=== PATIENT | female | born 1945 | race Hispanic/Latino ===

== ENCOUNTER 2018-01-23 10:07 | Outpatient (CLI) | payer MEDICARE ==
--- NOTE | 2018-01-23 12:57 | RAD ---
2 VIEWS CHEST: Date: 01/23/18 COMPARISON: 12/23/14. HISTORY: Shortness of breath. FINDINGS: Two views of the chest show normal sized cardiomediastinal silhouette. There is no evidence of consol idation, mass, or pleural effusion. The bones are unremarkable. IMPRESSION: No evidence of acute cardiopulmonary disease. POS: [facility]
== END 2018-01-23 10:08 | disposition home or self-care (01) ==
LOC: BICRAD 10:07
PROVIDERS: ATTEND Internal Medicine
DX: R06.02 Shortness of breath (principal)
CPT/HCPCS: 36415; 71046; 80053; 83880; 85025

== ENCOUNTER 2018-06-21 05:45 | Emergency (ER) | payer MEDICARE ==
[2018-06-21 06:36] LABS: Bilirubin Negative (Negative); Blood, Urine Trace (Negative); Clarity CLOUDY (Clear); Glucose, Urine (Dipstick) 250 mg/dL (Negative); Leukocyte Moderate (Negative); Nitrite Positive (Negative); Protein, Urine (Dipstick) Negative (Neg-Trace); Specific Gravity, Urine 1.011 (1.002-1.036); Urobilinogen 0.2 mg/dL (0.2-1.0)
[2018-06-21 06:39] LABS: Bacteria/HPF 4+ HPF (None Seen); Hyaline Casts/LPF 7-10 HYALINE CAST LPF (0-3 Hyaline); Pathc Cast-AUWi Flag 2.32 (0-2.49); WBC/HPF 21-50 HPF (0-3)
== END 2018-06-21 07:20 | disposition home or self-care (01) ==
LOC: ERS 05:45
DX: N12 Tubulo-interstitial nephritis, not specified as acute or chronic (principal); N30.00 Acute cystitis without hematuria; I10 Essential (primary) hypertension; E11.9 Type 2 diabetes mellitus without complications; Z86.73 Personal history of transient ischemic attack (TIA), and cerebral infarction without residual deficits; Z79.891 Long term (current) use of opiate analgesic; Z79.899 Other long term (current) drug therapy
CPT/HCPCS: 36416; 81003; 81015; 87077; 87086; 87186; 99283

== ENCOUNTER 2018-07-02 12:29 | Outpatient (CLI) | payer MEDICARE ==
--- NOTE | 2018-07-02 14:31 | ULT ---
ULTRASOUND CAROTID DOPPLER STANDARD: History: I24.1, R42 - stenosis Comparison: None. FINDINGS: Real-time grayscale and color evaluation of the extracranial carotid and vertebral arteries was perfo rmed. No elevated peak systolic velocities within the internal carotid arteries. The vertebral arteri es are patent. Antegrade flow of both vertebral arteries. IMPRESSION: No hemodynamically significant stenosis. POS: [facility]
== END 2018-07-02 12:30 | disposition home or self-care (01) ==
LOC: BICULT 12:29
PROVIDERS: ATTEND Internal Medicine
DX: R42 Dizziness and giddiness (principal); I70.90 Unspecified atherosclerosis
CPT/HCPCS: 93880

== ENCOUNTER 2018-12-16 10:45 | Outpatient (CLI) | payer MEDICARE ==
--- NOTE | 2018-12-16 13:35 | MMO ---
Bilateral MAMMO Bilat Screen [facility]. CLINICAL HISTORY: Patient is 73 years old and is seen for screening. The patient has the following family history of breast cancer: sister. The patient has a history of malignant (generic) in the right breast 1999 and malignant (generic) in the left breast 2010. 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 VIEWS: The views performed were: bilateral craniocaudal with tomosynthesis and bilateral mediolateral oblique with tomosynthesis. FILMS COMPARED: The present examination has been compared to prior imaging studies performed at [facility] on 11/15/2014, 11/17/2015, 12/13/2016 and 12/15/2017. MAMMOGRAM FINDINGS: There are scattered fibroglandular densities. There are stable benign appearing calcifications seen in both breasts. There are no suspicious masses, suspicious calcifications, or new areas of architectural distortion. IMPRESSION: THERE IS NO MAMMOGRAPHIC EVIDENCE OF MALIGNANCY. A ROUTINE FOLLOW-UP MAMMOGRAM IN 1 YEAR IS RECOMMENDED. THE RESULTS OF THIS EXAM WERE SENT TO THE PATIENT. ACR BI-RADS Category 2 - Benign finding MAMMOGRAPHY NOTE: 1. A negative mammogram report should not delay a biopsy if a dominant of clinically suspicious mass is present. 2. Approximately 10% to 15% of breast cancers are not detected by mammography. 3. Adenosis and dense breasts may obscure an underlying neoplasm. Reported by: MIRYAM KHANNA MD Electonically Signed: [id number]
--- NOTE | 2018-12-16 15:40 | BD ---
DEXA BONE DENSITOMETRY: (Dual energy x-ray absorptiometry) DATE: 12/16/2018 HISTORY: 73-year old female for age-related, post-menopausal, osteoporosis screening. weight: 215 lbs height: 64 in. Age of menopause: 44 COMPARISON: 11/26/2010 FINDINGS: The bone mineral density (BMD) is given in grams per square centimeter (g/cm2): LUMBAR SPINE: BMD (g/cm^2) T score Z score L1: 0.988 0.0 2.1 L2: 1.075 0.4 2.7 L3: 0.962 -1.1 1.3 L4: 0.948 -1.0 1.5 Total: 0.991 -0.5 1.8 Change in BMD compared to previous DEXA: -1.3 %. HIP: BMD (g/cm^2) T score Z score Femoral neck: 0.870 0.2 2.0 Total: 0.975 0.3 1.8 Change in BMD compared to previous DEXA: +0.4 %. IMPRESSION: 1.) The mean bone mineral density of the lumbar spine is normal. Fracture risk is not increased. 2) The bone mineral density of the femoral neck is normal. Fracture risk is not increased.
== END 2018-12-16 10:46 | disposition home or self-care (01) ==
LOC: BICMAMMO 10:45
PROVIDERS: ATTEND Internal Medicine
DX: Z12.31 Encounter for screening mammogram for malignant neoplasm of breast (principal); Z13.820 Encounter for screening for osteoporosis; M85.88 Other specified disorders of bone density and structure, other site; Z85.3 Personal history of malignant neoplasm of breast; Z80.3 Family history of malignant neoplasm of breast
CPT/HCPCS: 77063; 77067; 77080

== ENCOUNTER 2020-11-29 09:26 | Inpatient (IN) | payer MEDICARE ==
[~2020-11-29 09:26] MED LIST: Iopamidol-370 76% 500 ML 1 ML ONE
[2020-11-29 10:13] LABS: #Basophils 0.1 thou/uL (0.0-0.2); #Eosinphils 0.1 thou/uL (0.0-0.7); #Lymphocytes 2.2 thou/uL (1.20-3.40); #Monocytes 0.5 thou/uL (0.11-0.59); #Neutrophils 5.8 thou/uL (1.40-6.50); %Basophils 0.8 % (0.0-1.0); %Eosinophils 1.1 % (0.0-10.0); %Lymphocytes 24.9 % (21.0-51.0); %Monocytes 6.1 % (0.0-10.0); Hemoglobin 11.1 g/dL (12.0-16.0); Mean Corpuscular Hemoglobin 28.6 pg (27.0-31.0); Mean Corpuscular Volume 86.6 fL (78.0-98.0); Mean Platelet Volume 7.4 fL (7.4-10.4); Platelet Count 342 thou/uL (130-400); RBC Distribution Width 13.4 % (11.5-14.5); Red Blood Cell (RBC) Count 3.89 mill/uL (4.20-5.40); White Blood Cell (WBC) Count 8.7 thou/uL (4.8-10.8)
[2020-11-29 10:31] LABS: Bacteria/HPF 4+ HPF (None Seen); Bilirubin Negative (Negative); Blood, Urine 1+ (Negative); Clarity Clear (Clear); Glucose, Urine (Dipstick) 200 mg/dL (Negative); Ketone, Urine Negative (Negative); Leukocyte 75 Leu/uL (Negative); Nitrite 2+ (Negative); Protein, Urine (Dipstick) 50 mg/dL (Neg-Trace); RBC/HPF 0-3 HPF (0-3); Specific Gravity, Urine 1.011 (1.002-1.036); Squamous Epithelial 0-3 HPF (0-3); Urobilinogen Normal mg/dL (Less than 2); pH, Urine 5.5 (5.0-9.0)
[2020-11-29 10:31] LABS: ALT (SGPT) 20 U/L (8-55); AST (SGOT) 16 U/L (5-34); Albumin 3.8 g/dL (3.4-4.8); Alkaline Phosphatase 74 U/L (40-110); Anion Gap 15 mmol/L (10-20); BUN (Urea Nitrogen) 16 mg/dL (9.8-20.1); Bilirubin, Total 0.3 mg/dL (0.2-1.2); Calc. Creatinine Clearance 0 mL/min (70-130); Calcium 9.4 mg/dL (7.8-10.44); Carbon Dioxide 25 mmol/L (23-31); Chloride 101 mmol/L (98-107); Globulin 3.7 g/dL (2.4-3.5); Glucose 259 mg/dL (83-110); Potassium 3.6 mmol/L (3.5-5.1); Protein, Total 7.5 g/dL (5.8-8.1); Sodium 137 mmol/L (136-145)
[2020-11-29] MEDS ORDERED: cefTRIAXone\\ROCEPHIN 2 GM VIAL ONE (11:45)
[2020-11-29] MEDS ORDERED: Dextrose 5% in Water 1,000 ML IV PRN (11:54)
[2020-11-29] MEDS ORDERED: Dextrose 50% Abboject 50 ML SYRINGE SLOW IVP PRN (11:54)
[2020-11-29] MEDS ORDERED: Acetaminophen 325 MG TAB PO PRN (12:41)
[2020-11-29] MEDS ORDERED: Ondansetron ODT 4 MG TAB PO PRN (12:41)
[2020-11-29] MEDS ORDERED: HYDROcodone/Acetaminophen 5/325 mg Tablet PO PRN (12:41)
[2020-11-29] MEDS ORDERED: hydrALAZINE 20 MG/ML VIAL SLOW IVP PRN (13:16)
[2020-11-29 14:20] LABS: Troponin I Less than 0.010 ng/mL (< 0.028)
[2020-11-29 16:45] LABS: Troponin I Less than 0.010 ng/mL (< 0.028)
[2020-11-29] MEDS ORDERED: Carvedilol 3.125 MG TAB PO SCH (19:00)
[2020-11-29 19:31] LABS: SARS-CoV-2 NAA Rapid Test Not Detected (NotDetected)
[2020-11-29] MEDS: Carvedilol 3.125 MG TAB PO SCH (20:45)
[2020-11-29] MEDS: Sodium Chloride 0.9% 1,000 ML IV SCH ×2 (20:59)
[2020-11-29] MEDS ORDERED: Atorvastatin Calcium 10 MG TAB PO SCH (21:00)
[2020-11-29] MEDS: Alogliptin 25 MG TAB PO SCH (22:01)
[2020-11-29] MEDS ORDERED: cloNIDine 0.1 MG TAB ONE (22:05)
[2020-11-29] MEDS ORDERED: Amlodipine 5 MG TAB ONE (22:05)
[2020-11-29] MEDS ORDERED: Famotidine 20 MG TAB ONE (22:05)
[2020-11-29] MEDS: Amlodipine 5 MG TAB PO SCH (22:08)
[2020-11-29] MEDS: cloNIDine 0.1 MG TAB PO SCH (22:09)
[2020-11-29] MEDS: Famotidine 20 MG TAB PO SCH (22:10)
[2020-11-29] MEDS: Lantus 1000 UNITS/10 ML VIAL SC SCH (22:16)
[2020-11-30] MEDS ORDERED: Acetaminophen 325 MG TAB ONE (00:58)
[2020-11-30 03:22] VITALS: BMI 34.7
[2020-11-30 05:35] LABS: #Eosinphils 0.1 thou/uL (0.0-0.7); #Lymphocytes 2.8 thou/uL (1.20-3.40); #Monocytes 0.7 thou/uL (0.11-0.59); #Neutrophils 5.2 thou/uL (1.40-6.50); %Basophils 0.3 % (0.0-1.0); %Eosinophils 1.3 % (0.0-10.0); %Lymphocytes 31.9 % (21.0-51.0); %Neutrophils 58.6 % (42.0-75.0); Hemoglobin 10.4 g/dL (12.0-16.0); Mean Corpuscular Hemoglobin 29.9 pg (27.0-31.0); Mean Corpuscular Volume 87.9 fL (78.0-98.0); Mean Platelet Volume 7.2 fL (7.4-10.4); Platelet Count 323 thou/uL (130-400); RBC Distribution Width 13.6 % (11.5-14.5); Red Blood Cell (RBC) Count 3.47 mill/uL (4.20-5.40); White Blood Cell (WBC) Count 8.9 thou/uL (4.8-10.8)
[2020-11-30 05:58] LABS: Anion Gap 10 mmol/L (10-20); BUN (Urea Nitrogen) 14 mg/dL (9.8-20.1); Calc. Creatinine Clearance 89 mL/min (70-130); Calcium 8.5 mg/dL (7.8-10.44); Carbon Dioxide 26 mmol/L (23-31); Cardiac Risk 5.3 (Less than 4.5); Chloride 103 mmol/L (98-107); Cholesterol 163 mg/dl (< 200 Desired); Glucose 156 mg/dL (83-110); HDL Cholesterol 31 mg/dL (>60 Neg Risk); LDL Cholesterol, Calculated 95 mg/dL; Potassium 3.1 mmol/L (3.5-5.1); Sodium 136 mmol/L (136-145); Triglycerides 186 mg/dL (Less than 150)
[2020-11-30] MEDS: Sodium Chloride 0.9% 1,000 ML IV SCH (06:48)
[2020-11-30] MEDS: Alogliptin 25 MG TAB PO SCH ×2 (08:38→21:29)
[2020-11-30] MEDS: Carvedilol 3.125 MG TAB PO SCH ×2 (08:38→16:54)
[2020-11-30] MEDS: Furosemide 20 MG TAB PO SCH (08:39)
[2020-11-30] MEDS: Enoxaparin Sodium 40 MG/0.4 ML SYRINGE SC SCH (08:39)
[2020-11-30] MEDS: Famotidine 20 MG TAB PO SCH ×2 (08:39→21:31)
[2020-11-30] MEDS: Amlodipine 5 MG TAB PO SCH ×2 (08:39→21:30)
[2020-11-30] MEDS: Aspirin 81 mg Enteric Coated Tablet PO SCH (08:39)
[2020-11-30] MEDS: Lantus 1000 UNITS/10 ML VIAL SC SCH ×2 (08:51→21:38)
[2020-11-30] MEDS ORDERED: Potassium Chloride 20 MEQ TAB PO SCH (09:45)
[2020-11-30] MEDS: cefTRIAXone\\ROCEPHIN 2 GM in Sodium Chloride 0.9% 100 ML IVPB SCH (11:18)
[2020-11-30] MEDS: HumaLOG 300 UNITS/3 ML VIAL SC PRN ×2 (12:18→16:54)
[2020-11-30] MEDS: Atorvastatin Calcium 10 MG TAB PO SCH (21:30)
[2020-11-30] MEDS: cloNIDine 0.1 MG TAB PO SCH (21:31)
[2020-11-30] MEDS: Simvastatin 10 MG TAB PO SCH (21:31)
[2020-12-01] MEDS ORDERED: HumaLOG 300 UNITS/3 ML VIAL SC PRN (04:30)
[2020-12-01 05:20] LABS: #Basophils 0.1 thou/uL (0.0-0.2); #Eosinphils 0.2 thou/uL (0.0-0.7); #Lymphocytes 2.5 thou/uL (1.20-3.40); #Monocytes 0.6 thou/uL (0.11-0.59); #Neutrophils 5.2 thou/uL (1.40-6.50); %Basophils 0.7 % (0.0-1.0); %Eosinophils 1.8 % (0.0-10.0); %Lymphocytes 29.6 % (21.0-51.0); %Monocytes 7.1 % (0.0-10.0); %Neutrophils 60.9 % (42.0-75.0); Hemoglobin 10.6 g/dL (12.0-16.0); Mean Corpuscular HGB CONC 33.5 g/dL (32.0-36.0); Mean Corpuscular Hemoglobin 29.4 pg (27.0-31.0); Mean Corpuscular Volume 87.8 fL (78.0-98.0); Mean Platelet Volume 7.3 fL (7.4-10.4); Platelet Count 322 thou/uL (130-400); RBC Distribution Width 13.7 % (11.5-14.5); White Blood Cell (WBC) Count 8.5 thou/uL (4.8-10.8)
[2020-12-01 05:38] LABS: Anion Gap 11 mmol/L (10-20); BUN (Urea Nitrogen) 14 mg/dL (9.8-20.1); Calc. Creatinine Clearance 101 mL/min (70-130); Calcium 8.6 mg/dL (7.8-10.44); Carbon Dioxide 25 mmol/L (23-31); Chloride 104 mmol/L (98-107); Glucose 117 mg/dL (83-110); Potassium 3.2 mmol/L (3.5-5.1); Sodium 137 mmol/L (136-145)
[2020-12-01] MEDS: Lantus 1000 UNITS/10 ML VIAL SC SCH ×2 (08:48→21:29)
[2020-12-01] MEDS: Carvedilol 3.125 MG TAB PO SCH ×2 (08:49→16:54)
[2020-12-01] MEDS: Enoxaparin Sodium 40 MG/0.4 ML SYRINGE SC SCH (08:49)
[2020-12-01] MEDS: Famotidine 20 MG TAB PO SCH ×2 (08:49→21:29)
[2020-12-01] MEDS: Amlodipine 5 MG TAB PO SCH ×2 (08:50→21:27)
[2020-12-01] MEDS: Furosemide 20 MG TAB PO SCH (08:50)
[2020-12-01] MEDS: Alogliptin 25 MG TAB PO SCH ×2 (08:51→21:26)
[2020-12-01] MEDS: Aspirin 81 mg Enteric Coated Tablet PO SCH (08:51)
[2020-12-01] MEDS ORDERED: Furosemide 20 MG TAB PO SCH (09:00)
[2020-12-01] MEDS ORDERED: Potassium Chloride 20 MEQ TAB PO SCH (10:00)
[2020-12-01] MEDS: cefTRIAXone\\ROCEPHIN 2 GM in Sodium Chloride 0.9% 100 ML IVPB SCH (11:52)
[2020-12-01] MEDS: HumaLOG 300 UNITS/3 ML VIAL SC PRN ×2 (12:12→16:55)
[2020-12-01] MEDS: cloNIDine 0.1 MG TAB PO SCH (21:28)
[2020-12-01] MEDS: Atorvastatin Calcium 10 MG TAB PO SCH (21:28)
[2020-12-01] MEDS: Simvastatin 10 MG TAB PO SCH (21:29)
[2020-12-02 05:29] LABS: Anion Gap 8 mmol/L (10-20); BUN (Urea Nitrogen) 12 mg/dL (9.8-20.1); Calc. Creatinine Clearance 97 mL/min (70-130); Calcium 8.5 mg/dL (7.8-10.44); Carbon Dioxide 29 mmol/L (23-31); Chloride 104 mmol/L (98-107); Glucose 68 mg/dL (83-110); Potassium 3.5 mmol/L (3.5-5.1); Sodium 137 mmol/L (136-145)
[2020-12-02] MEDS: Furosemide 20 MG TAB PO SCH (07:40)
[2020-12-02] MEDS: Carvedilol 3.125 MG TAB PO SCH (07:40)
[2020-12-02] MEDS: Famotidine 20 MG TAB PO SCH (07:40)
[2020-12-02] MEDS: Aspirin 81 mg Enteric Coated Tablet PO SCH (07:40)
[2020-12-02] MEDS: Enoxaparin Sodium 40 MG/0.4 ML SYRINGE SC SCH (07:41)
[2020-12-02] MEDS: Amlodipine 5 MG TAB PO SCH (07:41)
[2020-12-02] MEDS: Lantus 1000 UNITS/10 ML VIAL SC SCH (07:43)
[2020-12-02] MEDS ORDERED: Alogliptin 6.25 MG TAB PO SCH (09:00)
[2020-12-02] MEDS: cefTRIAXone\\ROCEPHIN 2 GM in Sodium Chloride 0.9% 100 ML IVPB SCH (11:29)
[2020-12-02] MEDS: HumaLOG 300 UNITS/3 ML VIAL SC PRN (11:31)
[2020-12-02] MEDS ORDERED: Cefdinir 300 MG CAP PO SCH ×2 (14:45→21:00)
[2020-12-02 15:38] VITALS: TEMP 98
[2020-12-02 17:01] VITALS: BP 170/73
== END 2020-12-02 17:30 | disposition home or self-care (01) | DRG 690 ==
LOC: ERS 09:26 → SUATTDRO 09:26 → ERHOLD 11:57 → 2SW 11-30 02:33 → OBSVTOIN 11-30 15:25
PROVIDERS: ADMIT Family Medicine; ATTEND Internal Medicine
DX: N30.80 Other cystitis without hematuria (principal); Z16.11 Resistance to penicillins; Z16.29 Resistance to other single specified antibiotic; I69.354 Hemiplegia and hemiparesis following cerebral infarction affecting left non-dominant side; Z20.822 Contact with and (suspected) exposure to COVID-19; E86.0 Dehydration; B96.20 Unspecified Escherichia coli [E. coli] as the cause of diseases classified elsewhere; E11.40 Type 2 diabetes mellitus with diabetic neuropathy, unspecified; E78.5 Hyperlipidemia, unspecified; E11.65 Type 2 diabetes mellitus with hyperglycemia; I65.21 Occlusion and stenosis of right carotid artery; E87.6 Hypokalemia; Z85.3 Personal history of malignant neoplasm of breast; Z92.21 Personal history of antineoplastic chemotherapy; Z92.3 Personal history of irradiation; Z85.038 Personal history of other malignant neoplasm of large intestine; Z79.899 Other long term (current) drug therapy; Z79.84 Long term (current) use of oral hypoglycemic drugs; Z79.82 Long term (current) use of aspirin; Z79.811 Long term (current) use of aromatase inhibitors; Z90.710 Acquired absence of both cervix and uterus; Z81.1 Family history of alcohol abuse and dependence; Z80.3 Family history of malignant neoplasm of breast
CPT/HCPCS: 0240U; 36415; 36416; 74177; 80048; 80053; 80061; 81003; 81015; 82607; 82746; 83036; 84484; 85025; 87040; 87077; 87086; 87186; 93005; 93306; 93880; 94760; 96365; 96366; 96372; G0378; J0360; J0696; J1650; J1815; J3490; Q9967

== ENCOUNTER 2020-12-22 08:45 | Outpatient (CLI) | payer MEDICARE | END 2020-12-22 08:46 | disposition home or self-care (01) | LOC: BICMAMMO 08:45 | PROVIDERS: ATTEND Internal Medicine | DX: Z12.31 Encounter for screening mammogram for malignant neoplasm of breast (principal); Z80.3 Family history of malignant neoplasm of breast; Z85.3 Personal history of malignant neoplasm of breast; Z98.890 Other specified postprocedural states | CPT/HCPCS: 77063; 77067 ==

== ENCOUNTER 2021-09-15 19:26 | Inpatient (IN) | payer MEDICARE ==
[2021-09-15 20:58] LABS: #Eosinphils 0.1 thou/uL (0.0-0.7); #Lymphocytes 2.4 thou/uL (1.20-3.40); #Monocytes 0.6 thou/uL (0.11-0.59); #Neutrophils 5.4 thou/uL (1.40-6.50); %Basophils 0.4 % (0.0-1.0); %Eosinophils 1.3 % (0.0-10.0); %Lymphocytes 28.3 % (21.0-51.0); %Monocytes 7.5 % (0.0-10.0); %Neutrophils 62.6 % (42.0-75.0); Hemoglobin 10.7 g/dL (12.0-16.0); Mean Corpuscular HGB CONC 32.6 g/dL (32.0-36.0); Mean Corpuscular Hemoglobin 28.5 pg (27.0-31.0); Mean Corpuscular Volume 87.2 fL (78.0-98.0); Mean Platelet Volume 6.6 fL (7.4-10.4); Platelet Count 424 thou/uL (130-400); Red Blood Cell (RBC) Count 3.77 mill/uL (4.20-5.40); White Blood Cell (WBC) Count 8.5 thou/uL (4.8-10.8)
[2021-09-15 21:17] LABS: ALT (SGPT) 15 U/L (8-55); AST (SGOT) 10 U/L (5-34); Albumin 3.7 g/dL (3.4-4.8); Alkaline Phosphatase 84 U/L (40-110); Anion Gap 14 mmol/L (10-20); BUN (Urea Nitrogen) 14 mg/dL (9.8-20.1); Bilirubin, Total 0.4 mg/dL (0.2-1.2); Calc. Creatinine Clearance 0 mL/min (70-130); Calcium 9.5 mg/dL (7.8-10.44); Carbon Dioxide 22 mmol/L (23-31); Chloride 105 mmol/L (98-107); Globulin 3.7 g/dL (2.4-3.5); Glucose 171 mg/dL (83-110); Lipase 8 U/L (8-78); Potassium 3.2 mmol/L (3.5-5.1); Protein, Total 7.4 g/dL (5.8-8.1); Sodium 138 mmol/L (136-145)
[2021-09-15] MEDS ORDERED: Aspirin Chewable 81 MG TAB ONE (22:10)
[2021-09-15] MEDS ORDERED: Acetaminophen 325 MG TAB PO PRN (22:45)
[2021-09-15] MEDS ORDERED: Ondansetron ODT 4 MG TAB SL PRN (22:45)
[2021-09-15] MEDS ORDERED: Ondansetron PF 4 MG/2 ML Vial IVP PRN (22:45)
[2021-09-16 00:35] LABS: Troponin I 0.016 ng/mL (< 0.028)
[2021-09-16] MEDS ORDERED: Acetaminophen 650 MG Suppository PR PRN (00:38)
[2021-09-16] MEDS ORDERED: Dextrose 50% Abboject 50 ML SYRINGE SLOW IVP PRN (00:38)
[2021-09-16] MEDS ORDERED: Dextrose 5% in Water 1,000 ML IV PRN (00:38)
[2021-09-16 00:42] VITALS: BMI 36.3
[2021-09-16] MEDS ORDERED: Electrolyte Replacement Protocol 1 EACH FS SCH (04:30)
[2021-09-16 05:07] LABS: #Eosinphils 0.1 thou/uL (0.0-0.7); #Lymphocytes 2.4 thou/uL (1.20-3.40); #Monocytes 0.6 thou/uL (0.11-0.59); #Neutrophils 5.1 thou/uL (1.40-6.50); %Basophils 0.4 % (0.0-1.0); %Eosinophils 1.7 % (0.0-10.0); %Lymphocytes 28.5 % (21.0-51.0); %Monocytes 7.8 % (0.0-10.0); %Neutrophils 61.6 % (42.0-75.0); Hemoglobin 9.7 g/dL (12.0-16.0); Mean Corpuscular HGB CONC 32.7 g/dL (32.0-36.0); Mean Corpuscular Hemoglobin 28.4 pg (27.0-31.0); Mean Corpuscular Volume 87.1 fL (78.0-98.0); Mean Platelet Volume 7.1 fL (7.4-10.4); Platelet Count 383 thou/uL (130-400); RBC Distribution Width 14.1 % (11.5-14.5); White Blood Cell (WBC) Count 8.3 thou/uL (4.8-10.8)
[2021-09-16 05:11] LABS: Anion Gap 14 mmol/L (10-20); BUN (Urea Nitrogen) 14 mg/dL (9.8-20.1); Calc. Creatinine Clearance 83 mL/min (70-130); Calcium 8.9 mg/dL (7.8-10.44); Carbon Dioxide 23 mmol/L (23-31); Chloride 108 mmol/L (98-107); Glucose 134 mg/dL (83-110); Sodium 142 mmol/L (136-145)
[2021-09-16 05:12] LABS: Magnesium 1.3 mg/dL (1.6-2.6)
[2021-09-16 05:18] LABS: Troponin I 0.013 ng/mL (< 0.028)
[2021-09-16 05:19] LABS: Potassium 2.8 mmol/L (3.5-5.1)
[2021-09-16] MEDS ORDERED: Potassium Chloride 20 MEQ TAB PO SCH ×3 (06:00→20:00)
[2021-09-16] MEDS ORDERED: Magnesium Sulfate In Water 4 GM in Premix Bag 1 BAG IVPB SCH (06:00)
[2021-09-16] MEDS: Aspirin Chewable 81 MG TAB PO SCH (07:53)
[2021-09-16] MEDS ORDERED: Carvedilol 6.25 MG TAB PO SCH (12:30)
[2021-09-16] MEDS ORDERED: Amlodipine 5 MG TAB PO SCH (12:30)
[2021-09-16] MEDS ORDERED: ADENOSINE 60 MG/20 ML VIAL ONE (14:29)
[2021-09-16] MEDS: HumaLOG 300 UNITS/3 ML VIAL SC PRN ×2 (15:38→20:11)
[2021-09-16 18:04] LABS: SARS-CoV-2 PCR by NAA Not Detected (NotDetected)
[2021-09-16] MEDS: Carvedilol 6.25 MG TAB PO SCH (19:56)
[2021-09-16] MEDS: Amlodipine 5 MG TAB PO SCH (19:57)
[2021-09-16] MEDS: cloNIDine 0.1 MG TAB PO SCH (19:57)
[2021-09-16] MEDS: Atorvastatin Calcium 40 MG TAB PO SCH (19:57)
[2021-09-16] MEDS ORDERED: Acetaminophen 325 MG TAB PO PRN (22:54)
[2021-09-16] MEDS ORDERED: Acetaminophen 325 MG TAB PO SCH (23:59)
[2021-09-17 05:30] LABS: Anion Gap 14 mmol/L (10-20); BUN (Urea Nitrogen) 18 mg/dL (9.8-20.1); Calc. Creatinine Clearance 70 mL/min (70-130); Carbon Dioxide 20 mmol/L (23-31); Chloride 103 mmol/L (98-107); Glucose 288 mg/dL (83-110); Potassium 4.4 mmol/L (3.5-5.1); Sodium 133 mmol/L (136-145)
[2021-09-17] MEDS: HumaLOG 300 UNITS/3 ML VIAL SC PRN ×4 (06:14→20:15)
[2021-09-17] MEDS: Amlodipine 5 MG TAB PO SCH (09:22)
[2021-09-17] MEDS ORDERED: Furosemide 40 MG/4 ML VIAL SLOW IVP SCH (09:30)
[2021-09-17] MEDS ORDERED: Flecainide 50 MG TAB PO SCH (09:30)
[2021-09-17] MEDS ORDERED: Enoxaparin Sodium 100 MG/ML SYRINGE SC SCH (10:00)
[2021-09-17] MEDS: Carvedilol 6.25 MG TAB PO SCH ×2 (10:05→20:05)
[2021-09-17] MEDS: Aspirin Chewable 81 MG TAB PO SCH (10:05)
[2021-09-17] MEDS ORDERED: Azithromycin 250 MG TAB PO SCH ×2 (12:00→14:00)
[2021-09-17] MEDS: Atorvastatin Calcium 40 MG TAB PO SCH (20:04)
[2021-09-17] MEDS: Enoxaparin Sodium 100 MG/ML SYRINGE SC SCH (20:05)
[2021-09-17] MEDS: Flecainide 50 MG TAB PO SCH (20:05)
[2021-09-17] MEDS: cloNIDine 0.1 MG TAB PO SCH (20:05)
[2021-09-18] MEDS: HumaLOG 300 UNITS/3 ML VIAL SC PRN ×2 (07:14→18:35)
[2021-09-18] MEDS: Enoxaparin Sodium 100 MG/ML SYRINGE SC SCH ×2 (08:29→20:36)
[2021-09-18] MEDS: Aspirin Chewable 81 MG TAB PO SCH (08:29)
[2021-09-18] MEDS: Flecainide 50 MG TAB PO SCH ×2 (08:29→20:39)
[2021-09-18] MEDS: Carvedilol 6.25 MG TAB PO SCH ×2 (08:29→20:39)
[2021-09-18] MEDS ORDERED: PROPOFOL 200 MG/20 ML VIAL ONE (12:57)
[2021-09-18] MEDS ORDERED: hydrALAZINE 20 MG/ML VIAL SLOW IVP PRN ×2 (18:53→20:05)
[2021-09-18] MEDS ORDERED: Dextrose 5% in Water 1,000 ML IV PRN (20:01)
[2021-09-18] MEDS ORDERED: Dextrose 50% Abboject 50 ML SYRINGE SLOW IVP PRN (20:01)
[2021-09-18] MEDS ORDERED: HumaLOG 300 UNITS/3 ML VIAL SC PRN (20:02)
[2021-09-18] MEDS ORDERED: Acetaminophen 650 MG Suppository PR PRN (20:02)
[2021-09-18] MEDS ORDERED: Acetaminophen 325 MG TAB PO PRN (20:04)
[2021-09-18] MEDS ORDERED: Electrolyte Replacement Protocol 1 EACH FS SCH (20:15)
[2021-09-18] MEDS: cloNIDine 0.1 MG TAB PO SCH (20:39)
[2021-09-18] MEDS: Atorvastatin Calcium 40 MG TAB PO SCH (20:39)
[2021-09-19] MEDS: HumaLOG 300 UNITS/3 ML VIAL SC PRN ×3 (06:25→17:25)
[2021-09-19] MEDS ORDERED: Furosemide 40 MG/4 ML VIAL SLOW IVP SCH (08:45)
[2021-09-19] MEDS ORDERED: Amlodipine 10 MG TAB PO SCH (09:00)
[2021-09-19 09:21] LABS: #Eosinphils 0.1 thou/uL (0.0-0.7); #Lymphocytes 1.9 thou/uL (1.20-3.40); #Monocytes 0.7 thou/uL (0.11-0.59); #Neutrophils 6.8 thou/uL (1.40-6.50); %Basophils 0.4 % (0.0-1.0); %Eosinophils 0.8 % (0.0-10.0); %Lymphocytes 20.4 % (21.0-51.0); %Neutrophils 71.5 % (42.0-75.0); Hemoglobin 9.8 g/dL (12.0-16.0); Mean Corpuscular HGB CONC 31.5 g/dL (32.0-36.0); Mean Corpuscular Hemoglobin 27.7 pg (27.0-31.0); Mean Corpuscular Volume 87.9 fL (78.0-98.0); Mean Platelet Volume 7.3 fL (7.4-10.4); Platelet Count 328 thou/uL (130-400); RBC Distribution Width 14.1 % (11.5-14.5); Red Blood Cell (RBC) Count 3.53 mill/uL (4.20-5.40); White Blood Cell (WBC) Count 9.5 thou/uL (4.8-10.8)
[2021-09-19 09:41] LABS: Anion Gap 12 mmol/L (10-20); BUN (Urea Nitrogen) 19 mg/dL (9.8-20.1); Calc. Creatinine Clearance 81 mL/min (70-130); Calcium 9.3 mg/dL (7.8-10.44); Carbon Dioxide 24 mmol/L (23-31); Chloride 104 mmol/L (98-107); Glucose 252 mg/dL (83-110); Potassium 3.8 mmol/L (3.5-5.1); Sodium 136 mmol/L (136-145)
[2021-09-19] MEDS: Amlodipine 10 MG TAB PO SCH (09:49)
[2021-09-19] MEDS: Aspirin Chewable 81 MG TAB PO SCH (09:49)
[2021-09-19] MEDS: Carvedilol 6.25 MG TAB PO SCH ×2 (09:50→20:41)
[2021-09-19] MEDS: Enoxaparin Sodium 100 MG/ML SYRINGE SC SCH ×2 (09:50→20:42)
[2021-09-19] MEDS: Flecainide 50 MG TAB PO SCH ×2 (09:52→20:41)
[2021-09-19] MEDS: Furosemide 40 MG/4 ML VIAL SLOW IVP SCH (15:00)
[2021-09-19] MEDS: glyBURIDE 5 MG TAB PO SCH (17:26)
[2021-09-19] MEDS: metFORMIN 500 MG TAB PO SCH (20:40)
[2021-09-19] MEDS: Atorvastatin Calcium 40 MG TAB PO SCH (20:41)
[2021-09-19] MEDS: cloNIDine 0.1 MG TAB PO SCH (20:41)
[2021-09-19] MEDS: Insulin Glargine 30 UNITS/0.3 ML VIAL SC SCH (20:42)
[2021-09-19] MEDS: Alogliptin 6.25 MG TAB PO SCH (20:42)
[2021-09-20 05:47] LABS: #Eosinphils 0.1 thou/uL (0.0-0.7); #Monocytes 0.5 thou/uL (0.11-0.59); #Neutrophils 5.8 thou/uL (1.40-6.50); %Basophils 0.3 % (0.0-1.0); %Eosinophils 1.1 % (0.0-10.0); %Lymphocytes 23.8 % (21.0-51.0); %Monocytes 6.3 % (0.0-10.0); %Neutrophils 68.5 % (42.0-75.0); Hemoglobin 8.6 g/dL (12.0-16.0); Mean Corpuscular HGB CONC 31.6 g/dL (32.0-36.0); Mean Corpuscular Hemoglobin 27.9 pg (27.0-31.0); Mean Corpuscular Volume 88.2 fL (78.0-98.0); Platelet Count 328 thou/uL (130-400); RBC Distribution Width 14.2 % (11.5-14.5); Red Blood Cell (RBC) Count 3.09 mill/uL (4.20-5.40); White Blood Cell (WBC) Count 8.5 thou/uL (4.8-10.8)
[2021-09-20 06:13] LABS: Anion Gap 14 mmol/L (10-20); BUN (Urea Nitrogen) 19 mg/dL (9.8-20.1); Calc. Creatinine Clearance 71 mL/min (70-130); Calcium 8.8 mg/dL (7.8-10.44); Carbon Dioxide 25 mmol/L (23-31); Chloride 101 mmol/L (98-107); Glucose 273 mg/dL (83-110); Potassium 3.2 mmol/L (3.5-5.1); Sodium 137 mmol/L (136-145)
[2021-09-20] MEDS: HumaLOG 300 UNITS/3 ML VIAL SC PRN (06:21)
[2021-09-20] MEDS: Furosemide 40 MG/4 ML VIAL SLOW IVP SCH ×2 (06:21→14:47)
[2021-09-20] MEDS ORDERED: Potassium Chloride 20 MEQ TAB PO SCH ×2 (08:00→15:00)
[2021-09-20] MEDS ORDERED: HumaLOG 300 UNITS/3 ML VIAL SC PRN (08:17)
[2021-09-20] MEDS ORDERED: Dextrose 5% in Water 1,000 ML IV PRN (08:17)
[2021-09-20] MEDS: glyBURIDE 5 MG TAB PO SCH ×2 (09:55→16:35)
[2021-09-20] MEDS: Alogliptin 6.25 MG TAB PO SCH ×2 (09:56→21:47)
[2021-09-20] MEDS: Amlodipine 10 MG TAB PO SCH (09:57)
[2021-09-20] MEDS: Carvedilol 6.25 MG TAB PO SCH ×2 (09:57→21:46)
[2021-09-20] MEDS: Aspirin Chewable 81 MG TAB PO SCH (09:57)
[2021-09-20] MEDS: Flecainide 50 MG TAB PO SCH ×2 (09:58→21:45)
[2021-09-20] MEDS: Enoxaparin Sodium 100 MG/ML SYRINGE SC SCH ×2 (09:58→21:46)
[2021-09-20] MEDS: Insulin Glargine 30 UNITS/0.3 ML VIAL SC SCH ×2 (09:59→21:46)
[2021-09-20] MEDS: metFORMIN 500 MG TAB PO SCH ×2 (09:59→21:45)
[2021-09-20 14:21] LABS: Hemoglobin 9.6 g/dL (12.0-16.0)
[2021-09-20 14:38] LABS: Potassium 3.5 mmol/L (3.5-5.1)
[2021-09-20 21:31] LABS: Potassium 3.6 mmol/L (3.5-5.1)
[2021-09-20] MEDS: Atorvastatin Calcium 40 MG TAB PO SCH (21:46)
[2021-09-20] MEDS: cloNIDine 0.1 MG TAB PO SCH (21:46)
[2021-09-21] MEDS: Furosemide 40 MG/4 ML VIAL SLOW IVP SCH ×2 (05:36→13:08)
[2021-09-21] MEDS ORDERED: Furosemide 40 MG/4 ML VIAL ONE (05:48)
[2021-09-21 06:06] LABS: Potassium 3.8 mmol/L (3.5-5.1)
[2021-09-21] MEDS: Aspirin Chewable 81 MG TAB PO SCH (08:32)
[2021-09-21] MEDS: glyBURIDE 5 MG TAB PO SCH (08:32)
[2021-09-21] MEDS: Alogliptin 6.25 MG TAB PO SCH (08:32)
[2021-09-21] MEDS: Insulin Glargine 30 UNITS/0.3 ML VIAL SC SCH (08:33)
[2021-09-21] MEDS: Carvedilol 6.25 MG TAB PO SCH (08:33)
[2021-09-21] MEDS: metFORMIN 500 MG TAB PO SCH (08:33)
[2021-09-21] MEDS: Flecainide 50 MG TAB PO SCH (08:33)
[2021-09-21] MEDS: Amlodipine 10 MG TAB PO SCH (08:33)
[2021-09-21] MEDS: Enoxaparin Sodium 100 MG/ML SYRINGE SC SCH (08:34)
[2021-09-21 11:27] VITALS: BP 133/68; TEMP 98.1
[2021-09-21] MEDS ORDERED: Loperamide HCl 2 MG CAP PO PRN (11:31)
== END 2021-09-21 15:21 | disposition home or self-care (01) | DRG 291 ==
LOC: ERS 19:26 → 2SW 22:30 → OBSVTOIN 09-16 15:23 → UNDODISIN 09-18 14:06
PROVIDERS: ADMIT Internal Medicine; ATTEND Internal Medicine
PROC: 5A2204Z Restoration of Cardiac Rhythm, Single (ICD-10-PCS; principal; 2021-09-18)
PROC: B24BZZ4 Ultrasonography of Heart with Aorta, Transesophageal (ICD-10-PCS; 2021-09-18)
DX: I11.0 Hypertensive heart disease with heart failure (principal); I50.33 Acute on chronic diastolic (congestive) heart failure; I45.2 Bifascicular block; A04.5 Campylobacter enteritis; Z20.822 Contact with and (suspected) exposure to COVID-19; C50.919 Malignant neoplasm of unspecified site of unspecified female breast; I48.91 Unspecified atrial fibrillation; E11.51 Type 2 diabetes mellitus with diabetic peripheral angiopathy without gangrene; E87.6 Hypokalemia; E83.42 Hypomagnesemia; I27.20 Pulmonary hypertension, unspecified; R07.9 Chest pain, unspecified; D64.9 Anemia, unspecified; E66.9 Obesity, unspecified; Z79.899 Other long term (current) drug therapy; Z86.73 Personal history of transient ischemic attack (TIA), and cerebral infarction without residual deficits; Z92.21 Personal history of antineoplastic chemotherapy; Z92.3 Personal history of irradiation; Z98.890 Other specified postprocedural states; Z85.038 Personal history of other malignant neoplasm of large intestine; Z90.710 Acquired absence of both cervix and uterus; Z79.82 Long term (current) use of aspirin; Z79.84 Long term (current) use of oral hypoglycemic drugs; Z68.36 Body mass index [BMI] 36.0-36.9, adult
CPT/HCPCS: 36415; 36416; 71045; 72040; 78452; 80048; 80053; 82274; 83690; 83735; 83880; 84132; 84484; 85025; 92960; 93005; 93010; 93017; 93306; 93312; 94640; 94760; A9500; J0153; J1650; J1815; J1940; J2704; J3475; J7620; U0003; U0005

== ENCOUNTER 2021-09-29 22:23 | Emergency (ER) | payer MEDICARE ==
[2021-09-29 22:57] LABS: #Basophils 0.1 thou/uL (0.0-0.2); #Eosinphils 0.2 thou/uL (0.0-0.7); #Lymphocytes 2.6 thou/uL (1.20-3.40); #Monocytes 0.7 thou/uL (0.11-0.59); #Neutrophils 6.1 thou/uL (1.40-6.50); %Basophils 0.5 % (0.0-1.0); %Eosinophils 1.6 % (0.0-10.0); %Lymphocytes 26.9 % (21.0-51.0); %Monocytes 7.3 % (0.0-10.0); %Neutrophils 63.7 % (42.0-75.0); Mean Corpuscular HGB CONC 34.3 g/dL (32.0-36.0); Mean Corpuscular Hemoglobin 28.7 pg (27.0-31.0); Mean Corpuscular Volume 83.9 fL (78.0-98.0); Mean Platelet Volume 6.7 fL (7.4-10.4); Platelet Count 409 thou/uL (130-400); RBC Distribution Width 14.1 % (11.5-14.5); Red Blood Cell (RBC) Count 3.48 mill/uL (4.20-5.40); White Blood Cell (WBC) Count 9.6 thou/uL (4.8-10.8)
[2021-09-29 23:19] LABS: ALT (SGPT) 9 U/L (8-55); AST (SGOT) 11 U/L (5-34); Albumin 3.9 g/dL (3.4-4.8); Alkaline Phosphatase 73 U/L (40-110); Anion Gap 14 mmol/L (10-20); BUN (Urea Nitrogen) 17 mg/dL (9.8-20.1); Bilirubin, Total 0.3 mg/dL (0.2-1.2); Calc. Creatinine Clearance 0 mL/min (70-130); Calcium 9.3 mg/dL (7.8-10.44); Carbon Dioxide 26 mmol/L (23-31); Chloride 99 mmol/L (98-107); Globulin 3.3 g/dL (2.4-3.5); Glucose 180 mg/dL (83-110); Potassium 3.9 mmol/L (3.5-5.1); Protein, Total 7.2 g/dL (5.8-8.1); Sodium 135 mmol/L (136-145)
== END 2021-09-30 03:33 | disposition home or self-care (01) ==
LOC: ERS 22:23
DX: R07.9 Chest pain, unspecified (principal); I45.2 Bifascicular block; I10 Essential (primary) hypertension; E11.9 Type 2 diabetes mellitus without complications; I25.2 Old myocardial infarction; Z85.3 Personal history of malignant neoplasm of breast; Z85.038 Personal history of other malignant neoplasm of large intestine; Z79.82 Long term (current) use of aspirin; Z79.4 Long term (current) use of insulin; Z79.899 Other long term (current) drug therapy
CPT/HCPCS: 36415; 71045; 80053; 84484; 85025; 93005

== ENCOUNTER 2021-11-26 11:43 | Outpatient (CLI) | payer MEDICARE | END 2021-11-26 11:44 | disposition home or self-care (01) | LOC: BICRAD 11:43 | PROVIDERS: ATTEND Internal Medicine | DX: M25.572 Pain in left ankle and joints of left foot (principal); M79.672 Pain in left foot; M19.072 Primary osteoarthritis, left ankle and foot; M79.89 Other specified soft tissue disorders; M25.775 Osteophyte, left foot; W19.XXXD Unspecified fall, subsequent encounter; Z87.81 Personal history of (healed) traumatic fracture ==

== ENCOUNTER 2022-01-03 10:29 | Inpatient (IN) | payer MEDICARE ==
[2022-01-03 11:39] LABS: #Eosinphils 0.1 thou/uL (0.0-0.7); #Monocytes 0.6 thou/uL (0.11-0.59); %Basophils 0.3 % (0.0-1.0); %Eosinophils 0.8 % (0.0-10.0); %Lymphocytes 18.5 % (21.0-51.0); %Monocytes 5.7 % (0.0-10.0); %Neutrophils 74.8 % (42.0-75.0); Hemoglobin 8.7 g/dL (12.0-16.0); Mean Corpuscular HGB CONC 31.5 g/dL (32.0-36.0); Mean Corpuscular Volume 82.7 fL (78.0-98.0); Mean Platelet Volume 7.9 fL (7.4-10.4); Platelet Count 354 thou/uL (130-400); RBC Distribution Width 16.3 % (11.5-14.5); Red Blood Cell (RBC) Count 3.33 mill/uL (4.20-5.40); White Blood Cell (WBC) Count 10.7 thou/uL (4.8-10.8)
[2022-01-03 12:05] LABS: ALT (SGPT) 11 U/L (8-55); AST (SGOT) 10 U/L (5-34); Albumin 3.5 g/dL (3.4-4.8); Alkaline Phosphatase 72 U/L (40-110); Anion Gap 18 mmol/L (10-20); BUN (Urea Nitrogen) 25 mg/dL (9.8-20.1); Bilirubin, Total 0.4 mg/dL (0.2-1.2); Calc. Creatinine Clearance 0 mL/min (70-130); Calcium 9.4 mg/dL (7.8-10.44); Carbon Dioxide 18 mmol/L (23-31); Chloride 103 mmol/L (98-107); Estimated GFR 35; Globulin 3.6 g/dL (2.4-3.5); Glucose 212 mg/dL (83-110); Potassium 5.4 mmol/L (3.5-5.1); Protein, Total 7.1 g/dL (5.8-8.1); Sodium 134 mmol/L (136-145)
[2022-01-03] MEDS ORDERED: cefTRIAXone\\ROCEPHIN 2 GM VIAL ONE (13:24)
[2022-01-03] MEDS ORDERED: cefTRIAXone\\ROCEPHIN 1 GM VIAL ONE (13:25)
[2022-01-03 13:29] LABS: SARS-CoV-2 NAA Rapid Test Not Detected (NotDetected)
[2022-01-03] MEDS ORDERED: Dextrose 5% in Water 1,000 ML IV PRN (14:59)
[2022-01-03] MEDS ORDERED: Dextrose 50% Abboject 50 ML SYRINGE SLOW IVP PRN (14:59)
[2022-01-03] MEDS ORDERED: Acetaminophen 325 MG TAB PO PRN (14:59)
[2022-01-03] MEDS ORDERED: Azithromycin 500 MG VIAL ONE (15:07)
[2022-01-03] MEDS ORDERED: Insulin Regular 300 UNITS/3 ML VIAL IVP SCH (15:27)
[2022-01-03] MEDS ORDERED: Albuterol Sulfate 2.5 mg/3 ml Neb NEB SCH (15:27)
[2022-01-03] MEDS ORDERED: Dextrose 50% Abboject 50 ML SYRINGE SLOW IVP SCH (15:27)
[2022-01-03] MEDS ORDERED: Furosemide 20 MG/2 ML VIAL SLOW IVP SCH (15:30)
[2022-01-03] MEDS ORDERED: Iopamidol-370 76% 500 ML 1 ML ONE (15:58)
[2022-01-03 16:33] LABS: Troponin I Less than 0.010 ng/mL (< 0.028)
[2022-01-03 17:09] LABS: Magnesium 1.8 mg/dL (1.6-2.6)
[2022-01-03 17:20] VITALS: BMI 34.4
[2022-01-03] MEDS ORDERED: Ondansetron PF 4 MG/2 ML Vial IVP PRN (17:30)
[2022-01-03] MEDS ORDERED: Ondansetron ODT 4 MG TAB SL PRN (17:30)
[2022-01-03 17:59] LABS: Anion Gap 16 mmol/L (10-20); BUN (Urea Nitrogen) 25 mg/dL (9.8-20.1); Calc. Creatinine Clearance 51 mL/min (70-130); Calcium 9.1 mg/dL (7.8-10.44); Carbon Dioxide 20 mmol/L (23-31); Chloride 105 mmol/L (98-107); Estimated GFR 42; Glucose 143 mg/dL (83-110); Potassium 4.8 mmol/L (3.5-5.1); Sodium 136 mmol/L (136-145)
[2022-01-03 18:03] LABS: Troponin I Less than 0.010 ng/mL (< 0.028)
[2022-01-03] MEDS: Amlodipine 5 MG TAB PO SCH (21:18)
[2022-01-03] MEDS: cloNIDine 0.1 MG TAB PO SCH (21:19)
[2022-01-03] MEDS: Simvastatin 10 MG TAB PO SCH (21:19)
[2022-01-04] MEDS ORDERED: Melatonin 3 MG TAB PO SCH (01:45)
[2022-01-04 04:48] LABS: #Eosinphils 0.2 thou/uL (0.0-0.7); #Lymphocytes 1.9 thou/uL (1.20-3.40); #Monocytes 0.6 thou/uL (0.11-0.59); #Neutrophils 7.2 thou/uL (1.40-6.50); %Basophils 0.3 % (0.0-1.0); %Eosinophils 1.6 % (0.0-10.0); %Lymphocytes 19.4 % (21.0-51.0); %Monocytes 6.2 % (0.0-10.0); %Neutrophils 72.6 % (42.0-75.0); Hemoglobin 8.5 g/dL (12.0-16.0); Mean Corpuscular HGB CONC 33.3 g/dL (32.0-36.0); Mean Corpuscular Hemoglobin 27.4 pg (27.0-31.0); Mean Corpuscular Volume 82.4 fL (78.0-98.0); Mean Platelet Volume 7.5 fL (7.4-10.4); Platelet Count 320 thou/uL (130-400); RBC Distribution Width 16.2 % (11.5-14.5); Red Blood Cell (RBC) Count 3.09 mill/uL (4.20-5.40); White Blood Cell (WBC) Count 9.9 thou/uL (4.8-10.8)
[2022-01-04 05:11] LABS: Anion Gap 12 mmol/L (10-20); BUN (Urea Nitrogen) 21 mg/dL (9.8-20.1); Calc. Creatinine Clearance 68 mL/min (70-130); Calcium 8.8 mg/dL (7.8-10.44); Carbon Dioxide 21 mmol/L (23-31); Chloride 104 mmol/L (98-107); Estimated GFR 58; Glucose 85 mg/dL (83-110); Potassium 4.2 mmol/L (3.5-5.1); Sodium 133 mmol/L (136-145)
[2022-01-04] MEDS: Amlodipine 5 MG TAB PO SCH ×2 (10:00→21:29)
[2022-01-04] MEDS: Furosemide 20 MG TAB PO SCH (10:00)
[2022-01-04 11:21] LABS: Iron 21 ug/dL (50-170); Iron Binding Capacity, Total 326 mcg/dL (265-497)
[2022-01-04 12:16] LABS: Actual Bicarbonate (HCO3v) 24 mEq/L (22-28); Base Excess -0.8 mEq/L (-2.0 to +3.0); Calcium, Ionized (venous) 1.15 mmol/L (1.16-1.32); Chloride (VBG) 104 mmol/L (98-106); Hemoglobin (Hb) 9.7 g/dL (11.7-16.1); Potassium (VBG) 4.37 mmol/L (3.70-5.30); Sodium 135.5 mmol/L (133-146)
[2022-01-04] MEDS: cefTRIAXone\\ROCEPHIN 1 GM in Sodium Chloride 0.9% 100 ML IVPB SCH (14:19)
[2022-01-04] MEDS ORDERED: Azithromycin 500 MG in Sodium Chloride 0.9% 250 ML 250 ML IVPB SCH (15:00)
[2022-01-04] MEDS: HumaLOG 300 UNITS/3 ML VIAL SC PRN ×2 (17:18→21:42)
[2022-01-04] MEDS ORDERED: Nitroglycerin 0.4 MG TAB (25 Tab Bottle) ONE (17:28)
[2022-01-04] MEDS ORDERED: Temazepam 15 MG CAP PO PRN (19:48)
[2022-01-04] MEDS: Simvastatin 10 MG TAB PO SCH (21:33)
[2022-01-04] MEDS: Apixaban 5 MG TAB PO SCH (21:33)
[2022-01-04] MEDS: Famotidine 20 MG TAB PO SCH (21:33)
[2022-01-04] MEDS: cloNIDine 0.1 MG TAB PO SCH (21:33)
[2022-01-05] MEDS: Azithromycin 500 MG in Sodium Chloride 0.9% 250 ML 250 ML IVPB SCH ×2 (02:36→21:44)
[2022-01-05 04:51] LABS: #Eosinphils 0.2 thou/uL (0.0-0.7); #Lymphocytes 1.8 thou/uL (1.20-3.40); #Monocytes 0.6 thou/uL (0.11-0.59); #Neutrophils 5.1 thou/uL (1.40-6.50); %Basophils 0.6 % (0.0-1.0); %Eosinophils 2.1 % (0.0-10.0); %Lymphocytes 23.8 % (21.0-51.0); %Monocytes 7.7 % (0.0-10.0); %Neutrophils 65.8 % (42.0-75.0); Hemoglobin 8.5 g/dL (12.0-16.0); Mean Corpuscular HGB CONC 31.7 g/dL (32.0-36.0); Mean Platelet Volume 7.6 fL (7.4-10.4); Platelet Count 327 thou/uL (130-400); RBC Distribution Width 16.3 % (11.5-14.5); Red Blood Cell (RBC) Count 3.27 mill/uL (4.20-5.40); White Blood Cell (WBC) Count 7.7 thou/uL (4.8-10.8)
[2022-01-05 05:10] LABS: ALT (SGPT) 12 U/L (8-55); AST (SGOT) 11 U/L (5-34); Albumin 3.3 g/dL (3.4-4.8); Alkaline Phosphatase 75 U/L (40-110); Anion Gap 12 mmol/L (10-20); BUN (Urea Nitrogen) 14 mg/dL (9.8-20.1); Bilirubin, Total 0.5 mg/dL (0.2-1.2); Calc. Creatinine Clearance 75 mL/min (70-130); Carbon Dioxide 23 mmol/L (23-31); Chloride 105 mmol/L (98-107); Estimated GFR 67; Globulin 3.4 g/dL (2.4-3.5); Glucose 204 mg/dL (83-110); Magnesium 1.7 mg/dL (1.6-2.6); Potassium 4.2 mmol/L (3.5-5.1); Protein, Total 6.7 g/dL (5.8-8.1); Sodium 136 mmol/L (136-145)
[2022-01-05 05:11] LABS: Phosphorus 2.8 mg/dL (2.3-4.7)
[2022-01-05] MEDS: HumaLOG 300 UNITS/3 ML VIAL SC PRN ×4 (06:30→21:45)
[2022-01-05] MEDS ORDERED: metFORMIN 500 MG TAB PO SCH (09:15)
[2022-01-05] MEDS: Amlodipine 5 MG TAB PO SCH ×2 (09:27→21:43)
[2022-01-05] MEDS: Flecainide 50 MG TAB PO SCH ×2 (09:28→21:45)
[2022-01-05] MEDS: Apixaban 5 MG TAB PO SCH ×2 (09:28→21:44)
[2022-01-05] MEDS: Famotidine 20 MG TAB PO SCH ×2 (09:28→21:45)
[2022-01-05] MEDS: Aspirin 81 mg Enteric Coated Tablet PO SCH (09:28)
[2022-01-05] MEDS: Furosemide 20 MG TAB PO SCH (09:29)
[2022-01-05] MEDS: Folic Acid 1 MG TAB PO SCH (09:29)
[2022-01-05] MEDS ORDERED: Alogliptin 6.25 MG TAB PO SCH (09:45)
[2022-01-05] MEDS ORDERED: Furosemide 20 MG TAB PO SCH ×2 (11:19→11:30)
[2022-01-05] MEDS: cefTRIAXone\\ROCEPHIN 1 GM in Sodium Chloride 0.9% 100 ML IVPB SCH (11:59)
[2022-01-05] MEDS: metFORMIN 500 MG TAB PO SCH (17:06)
[2022-01-05] MEDS: cloNIDine 0.1 MG TAB PO SCH (21:44)
[2022-01-05] MEDS: Simvastatin 10 MG TAB PO SCH (21:45)
[2022-01-05] MEDS ORDERED: Guaifenesin DM 100-10/5 ML UDCUP PO PRN (23:22)
[2022-01-06 04:59] LABS: #Eosinphils 0.3 thou/uL (0.0-0.7); #Monocytes 0.6 thou/uL (0.11-0.59); #Neutrophils 5.3 thou/uL (1.40-6.50); %Basophils 0.3 % (0.0-1.0); %Eosinophils 3.1 % (0.0-10.0); %Lymphocytes 24.6 % (21.0-51.0); %Monocytes 7.4 % (0.0-10.0); %Neutrophils 64.6 % (42.0-75.0); Hemoglobin 8.7 g/dL (12.0-16.0); Mean Corpuscular Hemoglobin 26.5 pg (27.0-31.0); Mean Corpuscular Volume 82.8 fL (78.0-98.0); Mean Platelet Volume 7.6 fL (7.4-10.4); Platelet Count 349 thou/uL (130-400); RBC Distribution Width 16.3 % (11.5-14.5); Red Blood Cell (RBC) Count 3.29 mill/uL (4.20-5.40); White Blood Cell (WBC) Count 8.3 thou/uL (4.8-10.8)
[2022-01-06 05:18] LABS: Phosphorus 2.8 mg/dL (2.3-4.7)
[2022-01-06 05:22] LABS: Anion Gap 12 mmol/L (10-20); BUN (Urea Nitrogen) 16 mg/dL (9.8-20.1); Calc. Creatinine Clearance 77 mL/min (70-130); Calcium 8.6 mg/dL (7.8-10.44); Carbon Dioxide 21 mmol/L (23-31); Chloride 106 mmol/L (98-107); Estimated GFR 72; Glucose 259 mg/dL (83-110); Magnesium 1.6 mg/dL (1.6-2.6); Potassium 4.1 mmol/L (3.5-5.1); Sodium 135 mmol/L (136-145)
[2022-01-06] MEDS: HumaLOG 300 UNITS/3 ML VIAL SC PRN ×4 (06:17→20:53)
[2022-01-06] MEDS: Apixaban 5 MG TAB PO SCH ×2 (08:38→20:47)
[2022-01-06] MEDS: Alogliptin 6.25 MG TAB PO SCH (08:38)
[2022-01-06] MEDS: metFORMIN 500 MG TAB PO SCH ×2 (08:39→16:01)
[2022-01-06] MEDS: Ferrous Sulfate 325 MG TAB PO SCH (08:39)
[2022-01-06] MEDS: Famotidine 20 MG TAB PO SCH ×2 (08:39→20:49)
[2022-01-06] MEDS: Amlodipine 5 MG TAB PO SCH ×2 (08:39→20:48)
[2022-01-06] MEDS: Flecainide 50 MG TAB PO SCH ×2 (08:40→20:48)
[2022-01-06] MEDS: Folic Acid 1 MG TAB PO SCH (08:40)
[2022-01-06] MEDS: Furosemide 40 MG TAB PO SCH (08:40)
[2022-01-06] MEDS: Aspirin 81 mg Enteric Coated Tablet PO SCH (08:40)
[2022-01-06] MEDS ORDERED: Losartan 25 MG TAB PO SCH ×2 (12:36→13:00)
[2022-01-06] MEDS ORDERED: Furosemide 20 MG TAB PO SCH (12:45)
[2022-01-06] MEDS: cefTRIAXone\\ROCEPHIN 1 GM in Sodium Chloride 0.9% 100 ML IVPB SCH (13:00)
[2022-01-06] MEDS: Simvastatin 10 MG TAB PO SCH (20:47)
[2022-01-06] MEDS: cloNIDine 0.1 MG TAB PO SCH (20:48)
[2022-01-06] MEDS: Azithromycin 500 MG in Sodium Chloride 0.9% 250 ML 250 ML IVPB SCH (20:48)
[2022-01-07] MEDS: HumaLOG 300 UNITS/3 ML VIAL SC PRN ×2 (06:01→11:41)
[2022-01-07 08:03] VITALS: TEMP 98
[2022-01-07] MEDS ORDERED: Losartan 25 MG TAB PO SCH (09:00)
[2022-01-07] MEDS: Alogliptin 6.25 MG TAB PO SCH (09:30)
[2022-01-07] MEDS: Flecainide 50 MG TAB PO SCH (09:30)
[2022-01-07] MEDS: Famotidine 20 MG TAB PO SCH (09:31)
[2022-01-07] MEDS: Amlodipine 5 MG TAB PO SCH (09:31)
[2022-01-07] MEDS: Folic Acid 1 MG TAB PO SCH (09:31)
[2022-01-07] MEDS: Aspirin 81 mg Enteric Coated Tablet PO SCH (09:31)
[2022-01-07] MEDS: Ferrous Sulfate 325 MG TAB PO SCH (09:31)
[2022-01-07] MEDS: Apixaban 5 MG TAB PO SCH (09:32)
[2022-01-07] MEDS: metFORMIN 500 MG TAB PO SCH (09:32)
[2022-01-07] MEDS: Furosemide 40 MG TAB PO SCH (09:49)
[2022-01-07 12:08] VITALS: BP 150/65
[2022-01-07] MEDS: cefTRIAXone\\ROCEPHIN 1 GM in Sodium Chloride 0.9% 100 ML IVPB SCH (12:32)
== END 2022-01-07 13:47 | disposition home or self-care (01) | DRG 177 ==
LOC: ERS 10:29 → ERHOLD 13:53 → 2SW 16:55 → OBSVTOIN 01-04 09:47
PROVIDERS: ADMIT Family Medicine; ATTEND Family Medicine
DX: J69.0 Pneumonitis due to inhalation of food and vomit (principal); I50.33 Acute on chronic diastolic (congestive) heart failure; J96.01 Acute respiratory failure with hypoxia; N17.9 Acute kidney failure, unspecified; Z20.822 Contact with and (suspected) exposure to COVID-19; E11.9 Type 2 diabetes mellitus without complications; I48.91 Unspecified atrial fibrillation; I11.0 Hypertensive heart disease with heart failure; E78.5 Hyperlipidemia, unspecified; E87.5 Hyperkalemia; D50.9 Iron deficiency anemia, unspecified; Z90.710 Acquired absence of both cervix and uterus; Z86.73 Personal history of transient ischemic attack (TIA), and cerebral infarction without residual deficits; Z85.038 Personal history of other malignant neoplasm of large intestine; Z85.3 Personal history of malignant neoplasm of breast; I25.2 Old myocardial infarction; Z79.84 Long term (current) use of oral hypoglycemic drugs; Z79.4 Long term (current) use of insulin; Z79.82 Long term (current) use of aspirin; Z79.899 Other long term (current) drug therapy
CPT/HCPCS: 36415; 36416; 71045; 71275; 80048; 80053; 82728; 82805; 83540; 83550; 83735; 83880; 84100; 84145; 84443; 84484; 85025; 87040; 87070; 87205; 93005; 94760; 96365; 96366; 96367; 96375; 96376; G0378; J0456; J0696; J1815; J1940; J3490; J7050; Q9967

== ENCOUNTER 2022-03-09 16:35 | Emergency (ER) | payer MEDICARE ==
[2022-03-09] MEDS ORDERED: Meclizine HCl 25 MG TAB ONE (17:17)
[2022-03-09 17:25] LABS: #Eosinphils 0.1 thou/uL (0.0-0.7); #Lymphocytes 2.3 thou/uL (1.20-3.40); #Monocytes 0.6 thou/uL (0.11-0.59); #Neutrophils 6.7 thou/uL (1.40-6.50); %Basophils 0.2 % (0.0-1.0); %Eosinophils 0.6 % (0.0-10.0); %Lymphocytes 23.7 % (21.0-51.0); %Monocytes 6.3 % (0.0-10.0); %Neutrophils 69.3 % (42.0-75.0); Hemoglobin 9.9 g/dL (12.0-16.0); Mean Corpuscular HGB CONC 32.9 g/dL (32.0-36.0); Mean Corpuscular Hemoglobin 26.4 pg (27.0-31.0); Mean Corpuscular Volume 80.2 fl (78.0-98.0); Mean Platelet Volume 8.5 fL (7.4-10.4); Platelet Count 289 10x3/uL (130-400); Red Blood Cell (RBC) Count 3.77 mill/uL (4.20-5.40); White Blood Cell (WBC) Count 9.7 10x3/uL (4.8-10.8)
[2022-03-09 17:34] LABS: Bacteria/HPF 3+ HPF (None Seen); Bilirubin Negative (Negative); Blood, Urine 1+ (Negative); Glucose, Urine (Dipstick) Greater than 1000 mg/dL (Negative); Ketone, Urine Negative (Negative); Leukocyte Negative Leu/uL (Negative); Nitrite 1+ (Negative); Protein, Urine (Dipstick) 100 mg/dL (Neg-Trace); Specific Gravity, Urine 1.014 (1.002-1.036); Squamous Epithelial None Seen HPF (0-3); Urobilinogen Normal mg/dL (Less than 2); pH, Urine 6.5 (5.0-9.0)
[2022-03-09 17:35] LABS: Clarity Hazy (Clear)
[2022-03-09 17:52] LABS: ALT (SGPT) 9 U/L (8-55); AST (SGOT) 12 U/L (5-34); Albumin 3.7 g/dL (3.4-4.8); Alkaline Phosphatase 73 U/L (40-110); Anion Gap 13 mmol/L (10-20); BUN (Urea Nitrogen) 16 mg/dL (9.8-20.1); Bilirubin, Total 0.6 mg/dL (0.2-1.2); Calc. Creatinine Clearance 0 mL/min (70-130); Calcium 9.1 mg/dL (7.8-10.44); Carbon Dioxide 26 mmol/L (23-31); Chloride 92 mmol/L (98-107); Estimated GFR 55; Globulin 3.8 g/dL (2.4-3.5); Protein, Total 7.5 g/dL (5.8-8.1); Sodium 128 mmol/L (136-145)
[2022-03-09 17:56] LABS: Glucose 480 mg/dL (83-110)
[2022-03-09] MEDS ORDERED: Potassium Chloride 20 MEQ TAB ONE (18:26)
[2022-03-09] MEDS ORDERED: cefTRIAXone\\ROCEPHIN 1 GM VIAL ONE (18:26)
== END 2022-03-09 19:26 | disposition home or self-care (01) ==
LOC: ERS 16:35
DX: N39.0 Urinary tract infection, site not specified (principal); R42 Dizziness and giddiness; E87.6 Hypokalemia; E11.65 Type 2 diabetes mellitus with hyperglycemia; E11.9 Type 2 diabetes mellitus without complications; I10 Essential (primary) hypertension
CPT/HCPCS: 36416; 70450; 71045; 80053; 81003; 81015; 84484; 85025; 93005; 96374; J0696

== ENCOUNTER 2022-03-20 16:04 | Emergency (ER) | payer MEDICARE ==
[2022-03-20 16:28] LABS: #Eosinphils 0.1 thou/uL (0.0-0.7); #Lymphocytes 2.2 thou/uL (1.20-3.40); #Monocytes 0.6 thou/uL (0.11-0.59); #Neutrophils 6.1 thou/uL (1.40-6.50); %Basophils 0.4 % (0.0-1.0); %Eosinophils 0.8 % (0.0-10.0); %Lymphocytes 24.5 % (21.0-51.0); %Monocytes 6.2 % (0.0-10.0); %Neutrophils 68.1 % (42.0-75.0); Hemoglobin 9.7 g/dL (12.0-16.0); Mean Corpuscular HGB CONC 30.8 g/dL (32.0-36.0); Mean Corpuscular Hemoglobin 25.4 pg (27.0-31.0); Mean Corpuscular Volume 82.4 fl (78.0-98.0); Mean Platelet Volume 7.9 fL (7.4-10.4); Platelet Count 359 10x3/uL (130-400); RBC Distribution Width 15.5 % (11.5-14.5)
[2022-03-20 16:49] LABS: ALT (SGPT) 12 U/L (8-55); AST (SGOT) 13 U/L (5-34); Albumin 3.7 g/dL (3.4-4.8); Alkaline Phosphatase 68 U/L (40-110); Anion Gap 13 mmol/L (10-20); BUN (Urea Nitrogen) 18 mg/dL (9.8-20.1); Bilirubin, Total 0.4 mg/dL (0.2-1.2); Calc. Creatinine Clearance 0 mL/min (70-130); Calcium 9.3 mg/dL (7.8-10.44); Carbon Dioxide 23 mmol/L (23-31); Chloride 99 mmol/L (98-107); Estimated GFR 48; Glucose 397 mg/dL (83-110); Potassium 4.4 mmol/L (3.5-5.1); Protein, Total 7.7 g/dL (5.8-8.1); Sodium 131 mmol/L (136-145)
[2022-03-20] MEDS ORDERED: Insulin Regular 300 UNITS/3 ML VIAL ONE (18:07)
[2022-03-20] MEDS ORDERED: Amlodipine 5 MG TAB ONE (18:38)
[2022-03-20] MEDS ORDERED: Lisinopril 10 MG TAB ONE (18:38)
[2022-03-20] MEDS ORDERED: hydrALAZINE 20 MG/ML VIAL ONE (19:26)
== END 2022-03-20 20:18 | disposition home or self-care (01) ==
LOC: ERS 16:04
DX: E11.65 Type 2 diabetes mellitus with hyperglycemia (principal); I10 Essential (primary) hypertension
CPT/HCPCS: 36415; 36416; 80053; 85025; 96374; 96375; J0360; J1610; J1815

== ENCOUNTER 2022-04-23 07:50 | Inpatient (IN) | payer MEDICARE ==
[2022-04-23 08:31] LABS: #Eosinphils 0.1 thou/uL (0.0-0.7); #Monocytes 0.5 thou/uL (0.11-0.59); #Neutrophils 6.8 thou/uL (1.40-6.50); %Basophils 0.1 % (0.0-1.0); %Eosinophils 0.8 % (0.0-10.0); %Lymphocytes 21.2 % (21.0-51.0); %Monocytes 5.3 % (0.0-10.0); %Neutrophils 72.6 % (42.0-75.0); Mean Corpuscular HGB CONC 31.4 g/dL (32.0-36.0); Mean Corpuscular Hemoglobin 25.7 pg (27.0-31.0); Mean Corpuscular Volume 81.8 fl (78.0-98.0); Mean Platelet Volume 7.5 fL (7.4-10.4); Platelet Count 327 10x3/uL (130-400); RBC Distribution Width 16.2 % (11.5-14.5); White Blood Cell (WBC) Count 9.3 10x3/uL (4.8-10.8)
[2022-04-23 08:50] LABS: Actual Bicarbonate (HCO3v) 24 mEq/L (22-28); Base Excess 0.5 mEq/L (-2.0 to +3.0); Chloride (VBG) 106 mmol/L (98-106); Hemoglobin (Hb) 9.7 g/dL (11.7-16.1); Sodium 139.5 mmol/L (133-146); pH (venous) 7.49 (7.32-7.43)
[2022-04-23 08:51] LABS: ALT (SGPT) Less than 7 U/L (8-55); AST (SGOT) 8 U/L (5-34); Albumin 3.4 g/dL (3.4-4.8); Alkaline Phosphatase 66 U/L (40-110); Anion Gap 15 mmol/L (10-20); BUN (Urea Nitrogen) 11 mg/dL (9.8-20.1); Bilirubin, Total 0.8 mg/dL (0.2-1.2); Calc. Creatinine Clearance 0 mL/min (70-130); Calcium 9.1 mg/dL (7.8-10.44); Carbon Dioxide 23 mmol/L (23-31); Chloride 104 mmol/L (98-107); Estimated GFR 76; Globulin 3.9 g/dL (2.4-3.5); Glucose 113 mg/dL (83-110); Magnesium 1.4 mg/dL (1.6-2.6); Potassium 3.1 mmol/L (3.5-5.1); Protein, Total 7.3 g/dL (5.8-8.1); Sodium 139 mmol/L (136-145)
[2022-04-23] MEDS ORDERED: Potassium Chloride 20 MEQ TAB ONE (09:31)
[2022-04-23] MEDS ORDERED: Magnesium 2 GM/50 ML(in water) 2 GM in Premix Bag 1 BAG IVPB SCH ×2 (09:45→15:00)
[2022-04-23 10:49] LABS: SARS-CoV-2 NAA Rapid Test Not Detected (NotDetected)
[2022-04-23] MEDS ORDERED: Nitroglycerin 2% Ointment 1 INCH/1 GM Packet ONE (11:07)
[2022-04-23] MEDS ORDERED: Furosemide 40 MG/4 ML VIAL ONE ×2 (11:07→16:32)
[2022-04-23] MEDS ORDERED: Electrolyte Replacement Protocol 1 EACH FS SCH (14:45)
[2022-04-23] MEDS ORDERED: Electrolyte Replacement Protocol FS PRN (14:45)
[2022-04-23 15:03] LABS: Hemoglobin A1c 9.6 % (4.0-6.0)
[2022-04-23 15:21] LABS: Potassium 3.7 mmol/L (3.5-5.1)
[2022-04-23] MEDS ORDERED: Dextrose 50% Abboject 50 ML SYRINGE SLOW IVP PRN (15:50)
[2022-04-23] MEDS ORDERED: Dextrose 5% in Water 1,000 ML IV PRN (15:50)
[2022-04-23] MEDS ORDERED: Metoclopramide HCl 10 MG/2 ML VIAL IVP PRN (16:29)
[2022-04-23] MEDS ORDERED: Furosemide 40 MG/4 ML VIAL SLOW IVP SCH (16:30)
[2022-04-23 20:51] VITALS: BMI 32.8
[2022-04-23] MEDS ORDERED: cloNIDine 0.1 MG TAB PO SCH (21:00)
[2022-04-23] MEDS ORDERED: Losartan 25 MG TAB PO SCH (21:00)
[2022-04-23] MEDS: Carvedilol 6.25 MG TAB PO SCH (22:53)
[2022-04-23] MEDS: Apixaban 5 MG TAB PO SCH (22:53)
[2022-04-23] MEDS: cloNIDine 0.1 MG TAB PO SCH (22:54)
[2022-04-23] MEDS: Simvastatin 10 MG TAB PO SCH (22:54)
[2022-04-23] MEDS: HumaLOG 300 UNITS/3 ML VIAL SC PRN (22:55)
[2022-04-23] MEDS: Losartan 25 MG TAB PO SCH (22:55)
[2022-04-23] MEDS: Flecainide 50 MG TAB PO SCH (22:55)
[2022-04-24 04:47] LABS: #Eosinphils 0.1 thou/uL (0.0-0.7); #Lymphocytes 1.6 thou/uL (1.20-3.40); #Monocytes 0.6 thou/uL (0.11-0.59); #Neutrophils 5.9 thou/uL (1.40-6.50); %Basophils 0.1 % (0.0-1.0); %Eosinophils 0.9 % (0.0-10.0); %Lymphocytes 19.9 % (21.0-51.0); Hemoglobin 8.8 g/dL (12.0-16.0); Mean Corpuscular HGB CONC 32.7 g/dL (32.0-36.0); Mean Corpuscular Hemoglobin 26.8 pg (27.0-31.0); Mean Corpuscular Volume 81.9 fl (78.0-98.0); Mean Platelet Volume 7.5 fL (7.4-10.4); Platelet Count 319 10x3/uL (130-400); RBC Distribution Width 16.3 % (11.5-14.5); Red Blood Cell (RBC) Count 3.27 mill/uL (4.20-5.40); White Blood Cell (WBC) Count 8.2 10x3/uL (4.8-10.8)
[2022-04-24 05:13] LABS: ALT (SGPT) Less than 7 U/L (8-55); AST (SGOT) 8 U/L (5-34); Albumin 3.1 g/dL (3.4-4.8); Alkaline Phosphatase 64 U/L (40-110); Anion Gap 11 mmol/L (10-20); BUN (Urea Nitrogen) 11 mg/dL (9.8-20.1); Bilirubin, Total 0.9 mg/dL (0.2-1.2); Calc. Creatinine Clearance 78 mL/min (70-130); Calcium 8.5 mg/dL (7.8-10.44); Carbon Dioxide 25 mmol/L (23-31); Chloride 102 mmol/L (98-107); Estimated GFR 73; Globulin 3.5 g/dL (2.4-3.5); Glucose 245 mg/dL (83-110); Iron 33 ug/dL (50-170); Iron Binding Capacity, Total 279 mcg/dL (265-497); Potassium 3.4 mmol/L (3.5-5.1); Protein, Total 6.6 g/dL (5.8-8.1); Sodium 135 mmol/L (136-145)
[2022-04-24 05:32] LABS: Ferritin 58.66 ng/mL (10-291); Thyroid Stimulating Hormone 1.9106 uIU/mL (0.35-4.94)
[2022-04-24] MEDS ORDERED: Furosemide 20 MG/2 ML VIAL SLOW IVP SCH (06:00)
[2022-04-24] MEDS: Furosemide 20 MG/2 ML VIAL SLOW IVP SCH ×2 (06:33→15:18)
[2022-04-24] MEDS ORDERED: Potassium Chloride 20 MEQ TAB PO SCH (08:00)
[2022-04-24] MEDS ORDERED: Magnesium 2 GM/50 ML(in water) 2 GM in Premix Bag 1 BAG IVPB SCH (08:00)
[2022-04-24] MEDS: Aspirin 81 mg Enteric Coated Tablet PO SCH (08:45)
[2022-04-24] MEDS: Amlodipine 5 MG TAB PO SCH (08:45)
[2022-04-24] MEDS: Flecainide 50 MG TAB PO SCH ×2 (08:46→21:07)
[2022-04-24] MEDS: Folic Acid 1 MG TAB PO SCH (08:46)
[2022-04-24] MEDS: Apixaban 5 MG TAB PO SCH ×2 (08:46→21:06)
[2022-04-24] MEDS: Carvedilol 6.25 MG TAB PO SCH ×2 (08:46→17:11)
[2022-04-24] MEDS: Losartan 25 MG TAB PO SCH ×2 (08:46→21:07)
[2022-04-24] MEDS ORDERED: Flecainide 50 MG TAB PO SCH (09:00)
[2022-04-24] MEDS ORDERED: Amlodipine 5 MG TAB PO SCH (09:00)
[2022-04-24] MEDS ORDERED: Aspirin Chewable 81 MG TAB PO SCH (09:00)
[2022-04-24] MEDS: HumaLOG 300 UNITS/3 ML VIAL SC PRN ×3 (12:04→21:07)
[2022-04-24] MEDS ORDERED: Milk Of Magnesia 30 ML UDCUP PO SCH (20:00)
[2022-04-24] MEDS: cloNIDine 0.1 MG TAB PO SCH (21:06)
[2022-04-24] MEDS: Simvastatin 10 MG TAB PO SCH (21:07)
[2022-04-25 04:32] LABS: #Eosinphils 0.1 thou/uL (0.0-0.7); #Lymphocytes 1.9 thou/uL (1.20-3.40); #Monocytes 0.6 thou/uL (0.11-0.59); #Neutrophils 5.1 thou/uL (1.40-6.50); %Eosinophils 1.5 % (0.0-10.0); %Lymphocytes 24.6 % (21.0-51.0); %Monocytes 7.4 % (0.0-10.0); %Neutrophils 66.4 % (42.0-75.0); Hemoglobin 8.3 g/dL (12.0-16.0); Mean Corpuscular Hemoglobin 26.3 pg (27.0-31.0); Mean Corpuscular Volume 82.3 fl (78.0-98.0); Mean Platelet Volume 7.7 fL (7.4-10.4); Platelet Count 320 10x3/uL (130-400); RBC Distribution Width 16.4 % (11.5-14.5); Red Blood Cell (RBC) Count 3.13 mill/uL (4.20-5.40); White Blood Cell (WBC) Count 7.6 10x3/uL (4.8-10.8)
[2022-04-25 04:57] LABS: ALT (SGPT) Less than 7 U/L (8-55); AST (SGOT) 7 U/L (5-34); Albumin 3.1 g/dL (3.4-4.8); Alkaline Phosphatase 62 U/L (40-110); Anion Gap 13 mmol/L (10-20); BUN (Urea Nitrogen) 13 mg/dL (9.8-20.1); Bilirubin, Total 0.6 mg/dL (0.2-1.2); Calc. Creatinine Clearance 64 mL/min (70-130); Calcium 8.7 mg/dL (7.8-10.44); Carbon Dioxide 24 mmol/L (23-31); Chloride 100 mmol/L (98-107); Estimated GFR 57; Globulin 3.5 g/dL (2.4-3.5); Glucose 292 mg/dL (83-110); Magnesium 2.1 mg/dL (1.6-2.6); Potassium 3.7 mmol/L (3.5-5.1); Protein, Total 6.6 g/dL (5.8-8.1); Sodium 133 mmol/L (136-145)
[2022-04-25] MEDS: Furosemide 20 MG/2 ML VIAL SLOW IVP SCH (06:18)
[2022-04-25] MEDS: HumaLOG 300 UNITS/3 ML VIAL SC PRN (06:18)
[2022-04-25 08:36] VITALS: TEMP 98
[2022-04-25] MEDS: Aspirin 81 mg Enteric Coated Tablet PO SCH (08:42)
[2022-04-25] MEDS: Amlodipine 5 MG TAB PO SCH (08:42)
[2022-04-25] MEDS: Carvedilol 6.25 MG TAB PO SCH (08:42)
[2022-04-25] MEDS: Flecainide 50 MG TAB PO SCH (08:43)
[2022-04-25] MEDS: Apixaban 5 MG TAB PO SCH (08:43)
[2022-04-25] MEDS: Losartan 25 MG TAB PO SCH (08:43)
[2022-04-25] MEDS: Folic Acid 1 MG TAB PO SCH (08:43)
[2022-04-25 11:39] VITALS: BP 150/65
[2022-04-26] MEDS ORDERED: FLU VACC QS2022-23(65YR UP)/PF 240 MCG/0.7 ML SYRINGE IM ONE (09:00)
== END 2022-04-25 11:59 | disposition home or self-care (01) | DRG 291 ==
LOC: ERS 07:50 → ERHOLD 11:26 → 2NO 19:59
PROVIDERS: ADMIT Family Medicine; ATTEND Internal Medicine
DX: I11.0 Hypertensive heart disease with heart failure (principal); I50.33 Acute on chronic diastolic (congestive) heart failure; Z20.822 Contact with and (suspected) exposure to COVID-19; E87.6 Hypokalemia; E83.42 Hypomagnesemia; E11.9 Type 2 diabetes mellitus without complications; E78.5 Hyperlipidemia, unspecified; I25.10 Atherosclerotic heart disease of native coronary artery without angina pectoris; I48.0 Paroxysmal atrial fibrillation; Z90.710 Acquired absence of both cervix and uterus; Z98.890 Other specified postprocedural states; Z79.84 Long term (current) use of oral hypoglycemic drugs; Z79.899 Other long term (current) drug therapy; Z79.01 Long term (current) use of anticoagulants
CPT/HCPCS: 36415; 36416; 71045; 80053; 82607; 82728; 82805; 83036; 83540; 83550; 83735; 83880; 84443; 84484; 85025; 93005; 93306; 93798; 96365; 96375; J1815; J1940; J3475

== ENCOUNTER 2022-05-12 13:31 | Inpatient (IN) | payer MEDICARE ==
[2022-05-12 14:19] LABS: #Eosinphils 0.1 thou/uL (0.0-0.7); #Lymphocytes 2.1 thou/uL (1.20-3.40); #Monocytes 0.6 thou/uL (0.11-0.59); #Neutrophils 5.2 thou/uL (1.40-6.50); %Basophils 0.1 % (0.0-1.0); %Eosinophils 1.2 % (0.0-10.0); %Lymphocytes 26.2 % (21.0-51.0); %Monocytes 7.4 % (0.0-10.0); Hemoglobin 9.5 g/dL (12.0-16.0); Mean Corpuscular HGB CONC 32.4 g/dL (32.0-36.0); Mean Corpuscular Hemoglobin 25.8 pg (27.0-31.0); Mean Corpuscular Volume 79.7 fl (78.0-98.0); Mean Platelet Volume 7.9 fL (7.4-10.4); Platelet Count 340 10x3/uL (130-400); RBC Distribution Width 15.8 % (11.5-14.5); Red Blood Cell (RBC) Count 3.67 mill/uL (4.20-5.40)
[2022-05-12 14:36] LABS: ALT (SGPT) 7 U/L (8-55); AST (SGOT) 10 U/L (5-34); Albumin 3.3 g/dL (3.4-4.8); Alkaline Phosphatase 62 U/L (40-110); Anion Gap 18 mmol/L (10-20); BUN (Urea Nitrogen) 25 mg/dL (9.8-20.1); Bilirubin, Total 0.4 mg/dL (0.2-1.2); Calc. Creatinine Clearance 0 mL/min (70-130); Carbon Dioxide 21 mmol/L (23-31); Chloride 100 mmol/L (98-107); Estimated GFR 37; Globulin 3.8 g/dL (2.4-3.5); Glucose 237 mg/dL (83-110); Lipase 10 U/L (8-78); Magnesium 1.4 mg/dL (1.6-2.6); Potassium 3.7 mmol/L (3.5-5.1); Protein, Total 7.1 g/dL (5.8-8.1); Sodium 135 mmol/L (136-145)
[2022-05-12] MEDS ORDERED: Dextrose 5% in Water 1,000 ML IV PRN (15:28)
[2022-05-12] MEDS ORDERED: HumaLOG 300 UNITS/3 ML VIAL SC PRN (15:28)
[2022-05-12] MEDS ORDERED: Dextrose 50% Abboject 50 ML SYRINGE SLOW IVP PRN (15:28)
[2022-05-12] MEDS ORDERED: Sodium Chloride 0.9% 1,000 ML IV SCH (15:30)
[2022-05-12] MEDS ORDERED: Ondansetron PF 4 MG/2 ML Vial IVP PRN (15:33)
[2022-05-12 17:53] LABS: SARS-CoV-2 NAA Rapid Test Not Detected (NotDetected)
[2022-05-12 18:12] LABS: Troponin I Less than 0.010 ng/mL (< 0.028)
[2022-05-12 21:42] LABS: Troponin I Less than 0.010 ng/mL (< 0.028)
[2022-05-12 22:41] VITALS: BMI 31.9
[2022-05-13 03:57] LABS: #Eosinphils 0.1 thou/uL (0.0-0.7); #Lymphocytes 2.5 thou/uL (1.20-3.40); #Monocytes 0.6 thou/uL (0.11-0.59); #Neutrophils 4.5 thou/uL (1.40-6.50); %Basophils 0.1 % (0.0-1.0); %Eosinophils 1.4 % (0.0-10.0); %Lymphocytes 32.1 % (21.0-51.0); %Monocytes 8.1 % (0.0-10.0); %Neutrophils 58.3 % (42.0-75.0); Hemoglobin 8.9 g/dL (12.0-16.0); Mean Corpuscular HGB CONC 32.7 g/dL (32.0-36.0); Mean Corpuscular Hemoglobin 25.9 pg (27.0-31.0); Mean Corpuscular Volume 79.1 fl (78.0-98.0); Platelet Count 296 10x3/uL (130-400); RBC Distribution Width 15.9 % (11.5-14.5); Red Blood Cell (RBC) Count 3.43 mill/uL (4.20-5.40); White Blood Cell (WBC) Count 7.7 10x3/uL (4.8-10.8)
[2022-05-13 04:17] LABS: Anion Gap 14 mmol/L (10-20); BUN (Urea Nitrogen) 23 mg/dL (9.8-20.1); Calc. Creatinine Clearance 59 mL/min (70-130); Calcium 8.6 mg/dL (7.8-10.44); Carbon Dioxide 22 mmol/L (23-31); Chloride 103 mmol/L (98-107); Estimated GFR 54; Glucose 186 mg/dL (83-110); Potassium 2.9 mmol/L (3.5-5.1); Sodium 136 mmol/L (136-145)
[2022-05-13] MEDS ORDERED: Magnesium 2 GM/50 ML(in water) 2 GM in Premix Bag 1 BAG IVPB SCH (09:00)
[2022-05-13] MEDS ORDERED: Potassium Chloride 20 MEQ TAB PO SCH (09:00)
[2022-05-13] MEDS: Potassium Chloride 20 MEQ in Premix Bag 1 BAG IVPB SCH ×2 (09:32→11:56)
[2022-05-13] MEDS: HumaLOG 300 UNITS/3 ML VIAL SC PRN (16:42)
[2022-05-13 17:24] LABS: Anion Gap 12 mmol/L (10-20); Carbon Dioxide 22 mmol/L (23-31); Chloride 103 mmol/L (98-107); Potassium 4.2 mmol/L (3.5-5.1); Sodium 133 mmol/L (136-145)
[2022-05-13] MEDS: Acetaminophen 325 MG TAB PO PRN (20:21)
[2022-05-13] MEDS ORDERED: Insulin Glargine 30 UNITS/0.3 ML VIAL SC SCH (21:00)
[2022-05-14 07:48] LABS: Anion Gap 12 mmol/L (10-20); BUN (Urea Nitrogen) 10 mg/dL (9.8-20.1); Calc. Creatinine Clearance 86 mL/min (70-130); Calcium 8.8 mg/dL (7.8-10.44); Carbon Dioxide 23 mmol/L (23-31); Chloride 104 mmol/L (98-107); Estimated GFR 85; Glucose 226 mg/dL (83-110); Magnesium 1.9 mg/dL (1.6-2.6); Phosphorus 2.3 mg/dL (2.3-4.7); Potassium 3.8 mmol/L (3.5-5.1); Sodium 135 mmol/L (136-145)
[2022-05-14 07:51] LABS: Hemoglobin 9.5 g/dL (12.0-16.0); Mean Corpuscular HGB CONC 31.7 g/dL (32.0-36.0); Mean Corpuscular Hemoglobin 25.5 pg (27.0-31.0); Mean Corpuscular Volume 80.4 fl (78.0-98.0); Mean Platelet Volume 8.1 fL (7.4-10.4); Platelet Count 299 10x3/uL (130-400); Red Blood Cell (RBC) Count 3.71 mill/uL (4.20-5.40); White Blood Cell (WBC) Count 7.3 10x3/uL (4.8-10.8)
[2022-05-14] MEDS: Amlodipine 5 MG TAB PO SCH (10:14)
[2022-05-14] MEDS: Aspirin 81 mg Enteric Coated Tablet PO SCH (10:14)
[2022-05-14] MEDS: Folic Acid 1 MG TAB PO SCH (10:14)
[2022-05-14] MEDS: Acetaminophen 325 MG TAB PO PRN ×2 (10:15→22:27)
[2022-05-14] MEDS: Insulin Glargine 30 UNITS/0.3 ML VIAL SC SCH (10:15)
[2022-05-14] MEDS: Losartan 25 MG TAB PO SCH ×2 (10:15→22:29)
[2022-05-14] MEDS ORDERED: Insulin Glargine 30 UNITS/0.3 ML VIAL SC SCH (13:30)
[2022-05-14] MEDS: HumaLOG 300 UNITS/3 ML VIAL SC PRN (18:39)
[2022-05-14] MEDS: Rosuvastatin 20 MG TAB PO SCH (22:29)
[2022-05-14] MEDS: Flecainide 50 MG TAB PO SCH (22:29)
[2022-05-15] MEDS: Acetaminophen 325 MG TAB PO PRN ×2 (04:41→19:56)
[2022-05-15] MEDS: HumaLOG 300 UNITS/3 ML VIAL SC PRN (06:05)
[2022-05-15 06:11] LABS: #Eosinphils 0.1 thou/uL (0.0-0.7); #Lymphocytes 1.9 thou/uL (1.20-3.40); #Monocytes 0.7 thou/uL (0.11-0.59); #Neutrophils 5.7 thou/uL (1.40-6.50); %Basophils 0.1 % (0.0-1.0); %Eosinophils 1.6 % (0.0-10.0); %Lymphocytes 22.4 % (21.0-51.0); %Monocytes 8.4 % (0.0-10.0); %Neutrophils 67.5 % (42.0-75.0); Mean Corpuscular HGB CONC 31.4 g/dL (32.0-36.0); Mean Corpuscular Hemoglobin 25.4 pg (27.0-31.0); Mean Corpuscular Volume 80.9 fl (78.0-98.0); Mean Platelet Volume 7.6 fL (7.4-10.4); Platelet Count 303 10x3/uL (130-400); RBC Distribution Width 16.1 % (11.5-14.5); Red Blood Cell (RBC) Count 3.93 mill/uL (4.20-5.40); White Blood Cell (WBC) Count 8.4 10x3/uL (4.8-10.8)
[2022-05-15 06:31] LABS: Anion Gap 12 mmol/L (10-20); BUN (Urea Nitrogen) 9 mg/dL (9.8-20.1); Calc. Creatinine Clearance 84 mL/min (70-130); Calcium 9.2 mg/dL (7.8-10.44); Carbon Dioxide 24 mmol/L (23-31); Chloride 102 mmol/L (98-107); Estimated GFR 82; Glucose 183 mg/dL (83-110); Potassium 3.7 mmol/L (3.5-5.1); Sodium 134 mmol/L (136-145)
[2022-05-15] MEDS: Folic Acid 1 MG TAB PO SCH (07:55)
[2022-05-15] MEDS: Amlodipine 5 MG TAB PO SCH (07:55)
[2022-05-15] MEDS: Losartan 25 MG TAB PO SCH ×2 (07:55→19:57)
[2022-05-15] MEDS: Flecainide 50 MG TAB PO SCH ×2 (07:55→19:57)
[2022-05-15] MEDS: Aspirin 81 mg Enteric Coated Tablet PO SCH (07:55)
[2022-05-15] MEDS: Insulin Glargine 30 UNITS/0.3 ML VIAL SC SCH ×2 (07:55→19:58)
[2022-05-15] MEDS ORDERED: Gentamicin 80 MG/2 ML VIAL ONE (15:27)
[2022-05-15] MEDS ORDERED: Lidocaine 1% (PF) 30 ML VIAL ONE ×2 (15:27→16:23)
[2022-05-15] MEDS ORDERED: CEFAZOLIN 2 GM VIAL ONE (15:27)
[2022-05-15] MEDS ORDERED: CEFAZOLIN 1 GM VIAL ONE (15:27)
[2022-05-15] MEDS ORDERED: Midazolam HCl 2 mg/2 ml Vial ONE (16:03)
[2022-05-15] MEDS ORDERED: FENTANYL 50 MCG/ML 1 ML VIAL ONE (16:03)
[2022-05-15] MEDS ORDERED: hydrALAZINE 20 MG/ML VIAL ONE (17:07)
[2022-05-15] MEDS: Rosuvastatin 20 MG TAB PO SCH (19:57)
[2022-05-15] MEDS: Cephalexin 250 MG CAP PO SCH (19:57)
[2022-05-15] MEDS ORDERED: Carvedilol 25 MG TAB PO SCH (20:00)
[2022-05-16 02:31] LABS: #Eosinphils 0.2 thou/uL (0.0-0.7); #Lymphocytes 1.8 thou/uL (1.20-3.40); #Monocytes 1.1 thou/uL (0.11-0.59); #Neutrophils 6.8 thou/uL (1.40-6.50); %Basophils 0.1 % (0.0-1.0); %Monocytes 10.8 % (0.0-10.0); %Neutrophils 69.1 % (42.0-75.0); Mean Corpuscular HGB CONC 31.8 g/dL (32.0-36.0); Mean Corpuscular Hemoglobin 25.5 pg (27.0-31.0); Mean Corpuscular Volume 80.1 fl (78.0-98.0); Mean Platelet Volume 7.9 fL (7.4-10.4); Platelet Count 300 10x3/uL (130-400); RBC Distribution Width 16.1 % (11.5-14.5); Red Blood Cell (RBC) Count 3.93 mill/uL (4.20-5.40); White Blood Cell (WBC) Count 9.8 10x3/uL (4.8-10.8)
[2022-05-16 02:59] LABS: Anion Gap 14 mmol/L (10-20); BUN (Urea Nitrogen) 11 mg/dL (9.8-20.1); Calc. Creatinine Clearance 78 mL/min (70-130); Calcium 9.5 mg/dL (7.8-10.44); Carbon Dioxide 23 mmol/L (23-31); Chloride 102 mmol/L (98-107); Estimated GFR 75; Glucose 196 mg/dL (83-110); Magnesium 1.9 mg/dL (1.6-2.6); Potassium 3.8 mmol/L (3.5-5.1); Sodium 135 mmol/L (136-145)
[2022-05-16] MEDS: Losartan 25 MG TAB PO SCH ×2 (05:11→20:33)
[2022-05-16] MEDS: Folic Acid 1 MG TAB PO SCH (08:48)
[2022-05-16] MEDS: Flecainide 50 MG TAB PO SCH ×2 (08:48→20:37)
[2022-05-16] MEDS: Amlodipine 5 MG TAB PO SCH (08:48)
[2022-05-16] MEDS: Cephalexin 250 MG CAP PO SCH ×3 (08:48→20:32)
[2022-05-16] MEDS: Aspirin 81 mg Enteric Coated Tablet PO SCH (08:48)
[2022-05-16] MEDS: Acetaminophen 325 MG TAB PO PRN ×3 (08:48→20:33)
[2022-05-16] MEDS: Carvedilol 25 MG TAB PO SCH ×2 (08:49→17:25)
[2022-05-16] MEDS: Insulin Glargine 30 UNITS/0.3 ML VIAL SC SCH ×2 (08:49→20:38)
[2022-05-16] MEDS: Rosuvastatin 20 MG TAB PO SCH (20:33)
[2022-05-16] MEDS: HumaLOG 300 UNITS/3 ML VIAL SC PRN (20:37)
[2022-05-17 03:57] LABS: #Eosinphils 0.3 thou/uL (0.0-0.7); #Lymphocytes 2.6 thou/uL (1.20-3.40); #Monocytes 1.1 thou/uL (0.11-0.59); #Neutrophils 4.9 thou/uL (1.40-6.50); %Basophils 0.2 % (0.0-1.0); %Eosinophils 3.1 % (0.0-10.0); %Lymphocytes 29.6 % (21.0-51.0); Hemoglobin 9.3 g/dL (12.0-16.0); Mean Corpuscular Volume 81.3 fl (78.0-98.0); Mean Platelet Volume 7.7 fL (7.4-10.4); Platelet Count 248 10x3/uL (130-400); RBC Distribution Width 15.9 % (11.5-14.5); Red Blood Cell (RBC) Count 3.56 mill/uL (4.20-5.40); White Blood Cell (WBC) Count 8.9 10x3/uL (4.8-10.8)
[2022-05-17 04:17] LABS: Anion Gap 11 mmol/L (10-20); BUN (Urea Nitrogen) 19 mg/dL (9.8-20.1); Calc. Creatinine Clearance 61 mL/min (70-130); Carbon Dioxide 24 mmol/L (23-31); Chloride 103 mmol/L (98-107); Estimated GFR 56; Glucose 84 mg/dL (83-110); Potassium 3.3 mmol/L (3.5-5.1); Sodium 135 mmol/L (136-145)
[2022-05-17] MEDS: Losartan 25 MG TAB PO SCH ×2 (08:02→21:01)
[2022-05-17] MEDS: Cephalexin 250 MG CAP PO SCH ×3 (08:03→21:01)
[2022-05-17] MEDS: Carvedilol 25 MG TAB PO SCH ×2 (08:03→17:31)
[2022-05-17] MEDS: Folic Acid 1 MG TAB PO SCH (08:03)
[2022-05-17] MEDS: Flecainide 50 MG TAB PO SCH ×2 (08:03→21:01)
[2022-05-17] MEDS: Aspirin 81 mg Enteric Coated Tablet PO SCH (08:03)
[2022-05-17] MEDS: Insulin Glargine 30 UNITS/0.3 ML VIAL SC SCH ×2 (08:04→21:01)
[2022-05-17] MEDS: Amlodipine 5 MG TAB PO SCH (08:04)
[2022-05-17] MEDS: HumaLOG 300 UNITS/3 ML VIAL SC PRN (13:13)
[2022-05-17] MEDS: Rosuvastatin 20 MG TAB PO SCH (21:01)
[2022-05-17] MEDS: Apixaban 5 MG TAB PO SCH (21:01)
[2022-05-17] MEDS: Acetaminophen 325 MG TAB PO PRN (21:48)
[2022-05-18] MEDS: Acetaminophen 325 MG TAB PO PRN ×2 (02:30→21:08)
[2022-05-18 04:24] LABS: #Eosinphils 0.2 thou/uL (0.0-0.7); #Lymphocytes 1.9 thou/uL (1.20-3.40); #Monocytes 0.7 thou/uL (0.11-0.59); #Neutrophils 4.8 thou/uL (1.40-6.50); %Basophils 0.2 % (0.0-1.0); %Eosinophils 2.9 % (0.0-10.0); %Lymphocytes 25.2 % (21.0-51.0); %Monocytes 8.9 % (0.0-10.0); %Neutrophils 62.7 % (42.0-75.0); Hemoglobin 8.2 g/dL (12.0-16.0); Mean Corpuscular HGB CONC 31.5 g/dL (32.0-36.0); Mean Corpuscular Volume 82.8 fl (78.0-98.0); Mean Platelet Volume 8.2 fL (7.4-10.4); Platelet Count 247 10x3/uL (130-400); RBC Distribution Width 15.9 % (11.5-14.5); Red Blood Cell (RBC) Count 3.15 mill/uL (4.20-5.40); White Blood Cell (WBC) Count 7.6 10x3/uL (4.8-10.8)
[2022-05-18 04:52] LABS: Anion Gap 13 mmol/L (10-20); BUN (Urea Nitrogen) 20 mg/dL (9.8-20.1); Calc. Creatinine Clearance 65 mL/min (70-130); Calcium 8.5 mg/dL (7.8-10.44); Carbon Dioxide 19 mmol/L (23-31); Chloride 102 mmol/L (98-107); Estimated GFR 61; Glucose 390 mg/dL (83-110); Magnesium 1.9 mg/dL (1.6-2.6); Potassium 3.4 mmol/L (3.5-5.1); Sodium 131 mmol/L (136-145)
[2022-05-18] MEDS: HumaLOG 300 UNITS/3 ML VIAL SC PRN ×3 (05:54→18:11)
[2022-05-18] MEDS: Carvedilol 25 MG TAB PO SCH ×2 (09:50→18:10)
[2022-05-18] MEDS: Aspirin 81 mg Enteric Coated Tablet PO SCH (09:51)
[2022-05-18] MEDS: Cephalexin 250 MG CAP PO SCH ×3 (09:51→21:07)
[2022-05-18] MEDS: Apixaban 5 MG TAB PO SCH ×2 (09:51→21:07)
[2022-05-18] MEDS: Amlodipine 5 MG TAB PO SCH (09:51)
[2022-05-18] MEDS: Flecainide 50 MG TAB PO SCH ×2 (09:52→21:07)
[2022-05-18] MEDS: Insulin Glargine 30 UNITS/0.3 ML VIAL SC SCH ×2 (09:52→21:07)
[2022-05-18] MEDS: Folic Acid 1 MG TAB PO SCH (09:52)
[2022-05-18] MEDS: Losartan 25 MG TAB PO SCH ×2 (09:53→21:08)
[2022-05-18] MEDS ORDERED: Potassium Chloride 20 MEQ TAB PO SCH (12:00)
[2022-05-18] MEDS ORDERED: Insulin Glargine 30 UNITS/0.3 ML VIAL SC SCH (12:00)
[2022-05-18] MEDS: Rosuvastatin 20 MG TAB PO SCH (21:08)
[2022-05-19 05:17] LABS: Anion Gap 12 mmol/L (10-20); BUN (Urea Nitrogen) 22 mg/dL (9.8-20.1); Calc. Creatinine Clearance 70 mL/min (70-130); Calcium 8.9 mg/dL (7.8-10.44); Carbon Dioxide 22 mmol/L (23-31); Chloride 103 mmol/L (98-107); Estimated GFR 65; Glucose 211 mg/dL (83-110); Magnesium 1.9 mg/dL (1.6-2.6); Potassium 3.8 mmol/L (3.5-5.1); Sodium 133 mmol/L (136-145)
[2022-05-19] MEDS: HumaLOG 300 UNITS/3 ML VIAL SC PRN ×2 (06:14→12:16)
[2022-05-19] MEDS ORDERED: Insulin Glargine 30 UNITS/0.3 ML VIAL SC SCH (09:00)
[2022-05-19] MEDS: Amlodipine 5 MG TAB PO SCH (09:04)
[2022-05-19] MEDS: Cephalexin 250 MG CAP PO SCH (09:04)
[2022-05-19] MEDS: Aspirin 81 mg Enteric Coated Tablet PO SCH (09:04)
[2022-05-19] MEDS: Apixaban 5 MG TAB PO SCH (09:04)
[2022-05-19] MEDS: Carvedilol 25 MG TAB PO SCH (09:04)
[2022-05-19] MEDS: Folic Acid 1 MG TAB PO SCH (09:05)
[2022-05-19] MEDS: Flecainide 50 MG TAB PO SCH (09:05)
[2022-05-19] MEDS: Losartan 25 MG TAB PO SCH (09:06)
[2022-05-19] MEDS: Acetaminophen 325 MG TAB PO PRN (09:07)
[2022-05-19 13:56] VITALS: BP 130/60; TEMP 97
== END 2022-05-19 15:28 | DRG 243 ==
LOC: ERS 13:31 → ERHOLD 15:26 → IMCU/EMU 21:26 → 2NO 05-17 18:11
PROVIDERS: ADMIT Internal Medicine; ATTEND Internal Medicine
PROC: 0JH606Z Insertion of Pacemaker, Dual Chamber into Chest Subcutaneous Tissue and Fascia, Open Approach (ICD-10-PCS; principal; 2022-05-15)
PROC: 02H60JZ Insertion of Pacemaker Lead into Right Atrium, Open Approach (ICD-10-PCS; 2022-05-15)
PROC: 02HK0JZ Insertion of Pacemaker Lead into Right Ventricle, Open Approach (ICD-10-PCS; 2022-05-15)
DX: I49.5 Sick sinus syndrome (principal); I13.0 Hypertensive heart and chronic kidney disease with heart failure and stage 1 through stage 4 chronic kidney disease, or unspecified chronic kidney disease; N17.9 Acute kidney failure, unspecified; Z20.822 Contact with and (suspected) exposure to COVID-19; I48.0 Paroxysmal atrial fibrillation; N18.30 Chronic kidney disease, stage 3 unspecified; E11.22 Type 2 diabetes mellitus with diabetic chronic kidney disease; E87.6 Hypokalemia; I50.9 Heart failure, unspecified; E83.42 Hypomagnesemia; D63.1 Anemia in chronic kidney disease; Z85.038 Personal history of other malignant neoplasm of large intestine; I25.2 Old myocardial infarction; Z79.899 Other long term (current) drug therapy; Z79.84 Long term (current) use of oral hypoglycemic drugs; Z86.73 Personal history of transient ischemic attack (TIA), and cerebral infarction without residual deficits; Z79.82 Long term (current) use of aspirin; Z79.01 Long term (current) use of anticoagulants; Z90.710 Acquired absence of both cervix and uterus
CPT/HCPCS: 33208; 36415; 36416; 71045; 80048; 80053; 83690; 83735; 83880; 84100; 84484; 85025; 85027; 87811; 93005; 93010; 96365; 96366; 96375; 97139; 99152; 99153; J0360; J0690; J1250; J1580; J1650; J1815; J1956; J2001; J2250; J3010; J3475; J3480; J7050; J7070; U0002

== ENCOUNTER 2022-06-03 07:32 | Inpatient (IN) | payer MEDICARE ==
[2022-06-03] MEDS ORDERED: Furosemide 40 MG/4 ML VIAL ONE (08:08)
[2022-06-03] MEDS ORDERED: Aspirin 325 MG TAB ONE (08:08)
[2022-06-03 08:30] LABS: #Eosinphils 0.2 thou/uL (0.0-0.7); #Lymphocytes 1.5 thou/uL (1.20-3.40); #Monocytes 0.8 thou/uL (0.11-0.59); #Neutrophils 10.4 thou/uL (1.40-6.50); %Basophils 0.3 % (0.0-1.0); %Eosinophils 1.6 % (0.0-10.0); %Lymphocytes 11.5 % (21.0-51.0); %Monocytes 6.3 % (0.0-10.0); %Neutrophils 80.3 % (42.0-75.0); Hemoglobin 8.7 g/dL (12.0-16.0); Mean Corpuscular HGB CONC 30.7 g/dL (32.0-36.0); Mean Corpuscular Hemoglobin 25.2 pg (27.0-31.0); Mean Platelet Volume 7.6 fL (7.4-10.4); Platelet Count 351 10x3/uL (130-400); RBC Distribution Width 16.3 % (11.5-14.5); Red Blood Cell (RBC) Count 3.44 mill/uL (4.20-5.40); White Blood Cell (WBC) Count 12.9 10x3/uL (4.8-10.8)
[2022-06-03 08:42] LABS: INR-International Normal Ratio 1.3; PTT 35.5 sec (22.9-36.1); Prothrombin Time 16.9 sec (12.0-14.7)
[2022-06-03 08:43] LABS: D-Dimer Test 1.52 *mcg/mL (0.27-0.43)
[2022-06-03 08:51] LABS: ALT (SGPT) 10 U/L (8-55); AST (SGOT) 12 U/L (5-34); Albumin 3.5 g/dL (3.4-4.8); Alkaline Phosphatase 85 U/L (40-110); Anion Gap 17 mmol/L (10-20); BUN (Urea Nitrogen) 19 mg/dL (9.8-20.1); Bilirubin, Total 0.7 mg/dL (0.2-1.2); Calc. Creatinine Clearance 0 mL/min (70-130); Calcium 9.2 mg/dL (7.8-10.44); Carbon Dioxide 22 mmol/L (23-31); Chloride 101 mmol/L (98-107); Estimated GFR 69; Globulin 3.9 g/dL (2.4-3.5); Glucose 315 mg/dL (83-110); Potassium 4.5 mmol/L (3.5-5.1); Protein, Total 7.4 g/dL (5.8-8.1); Sodium 135 mmol/L (136-145)
[2022-06-03] MEDS ORDERED: Cefepime 2 GM VIAL ONE (08:57)
[2022-06-03] MEDS ORDERED: Nitroglycerin 2% Ointment 1 INCH/1 GM Packet ONE (08:57)
[2022-06-03 09:25] LABS: Actual Bicarbonate (HCO3v) 24 mEq/L (22-28); Analyzer IN Cardio ER; Base Excess 1.3 mEq/L (-2.0 to +3.0); Chloride (VBG) 101 mmol/L (98-106); Hemoglobin (Hb) 10.4 g/dL (11.7-16.1); Potassium (VBG) 4.13 mmol/L (3.70-5.30); Sodium 134.1 mmol/L (133-146)
[2022-06-03] MEDS ORDERED: Vancomycin 1 GM/200 ML (FROZEN) BAG ONE (11:29)
[2022-06-03] MEDS ORDERED: Iopamidol-370 76% 500 ML 1 ML ONE (11:33)
[2022-06-03 11:39] LABS: Bacteria/HPF 2+ HPF (None Seen); Bilirubin Negative (Negative); Blood, Urine 1+ (Negative); Clarity Turbid (Clear); Glucose, Urine (Dipstick) 500 mg/dL (Negative); Ketone, Urine Negative (Negative); Leukocyte 250 Leu/uL (Negative); Nitrite Negative (Negative); Protein, Urine (Dipstick) 70 mg/dL (Neg-Trace); RBC/HPF 0-3 HPF (0-3); Specific Gravity, Urine 1.009 (1.002-1.036); Squamous Epithelial 0-3 HPF (0-3); Urobilinogen Normal mg/dL (Less than 2)
[2022-06-03 12:03] LABS: SARS-CoV-2 NAA Rapid Test Not Detected (NotDetected)
[2022-06-03 12:26] LABS: Troponin I 0.027 ng/mL (< 0.028)
[2022-06-03] MEDS ORDERED: Ondansetron ODT 4 MG TAB PO PRN (12:33)
[2022-06-03] MEDS ORDERED: Ondansetron PF 4 MG/2 ML Vial IVP PRN (12:33)
[2022-06-03] MEDS ORDERED: Dextrose 50% Abboject 50 ML SYRINGE SLOW IVP PRN (12:40)
[2022-06-03] MEDS ORDERED: Dextrose 5% in Water 1,000 ML IV PRN (12:40)
[2022-06-03] MEDS ORDERED: Ipratropium/Albuterol 3 ML NEB NEB PRN (12:43)
[2022-06-03] MEDS ORDERED: Vancomycin HCl 750 MG in Sodium Chloride 0.9% 250 ML 250 ML IVPB SCH (13:15)
[2022-06-03 14:38] LABS: Troponin I 0.043 ng/mL (< 0.028)
[2022-06-03 17:24] VITALS: BMI 32.2
[2022-06-03] MEDS: HumaLOG 300 UNITS/3 ML VIAL SC PRN ×2 (19:05→21:54)
[2022-06-03] MEDS: Acetaminophen 325 MG TAB PO PRN (19:07)
[2022-06-03] MEDS ORDERED: Carvedilol 6.25 MG TAB PO SCH (21:00)
[2022-06-03] MEDS ORDERED: Melatonin 3 MG TAB PO PRN (21:35)
[2022-06-03] MEDS: Cefepime 1 GM in Sodium Chloride 0.9% 100 ML IVPB SCH (21:51)
[2022-06-03] MEDS: Apixaban 5 MG TAB PO SCH (21:52)
[2022-06-03] MEDS: Famotidine 20 MG TAB PO SCH (21:53)
[2022-06-03] MEDS: Rosuvastatin 20 MG TAB PO SCH (21:53)
[2022-06-03] MEDS: Flecainide 50 MG TAB PO SCH (21:53)
[2022-06-04 05:23] LABS: #Eosinphils 0.4 thou/uL (0.0-0.7); #Lymphocytes 1.7 thou/uL (1.20-3.40); #Monocytes 0.7 thou/uL (0.11-0.59); #Neutrophils 6.6 thou/uL (1.40-6.50); %Basophils 0.2 % (0.0-1.0); %Eosinophils 4.1 % (0.0-10.0); %Lymphocytes 18.2 % (21.0-51.0); %Monocytes 7.8 % (0.0-10.0); %Neutrophils 69.7 % (42.0-75.0); Hemoglobin 7.9 g/dL (12.0-16.0); Mean Corpuscular HGB CONC 31.5 g/dL (32.0-36.0); Mean Corpuscular Hemoglobin 25.6 pg (27.0-31.0); Mean Corpuscular Volume 81.3 fl (78.0-98.0); Mean Platelet Volume 7.5 fL (7.4-10.4); Platelet Count 293 10x3/uL (130-400); RBC Distribution Width 16.2 % (11.5-14.5); Red Blood Cell (RBC) Count 3.07 mill/uL (4.20-5.40); White Blood Cell (WBC) Count 9.4 10x3/uL (4.8-10.8)
[2022-06-04] MEDS: Furosemide 40 MG/4 ML VIAL SLOW IVP SCH ×2 (05:34→17:44)
[2022-06-04 05:43] LABS: Anion Gap 11 mmol/L (10-20); BUN (Urea Nitrogen) 13 mg/dL (9.8-20.1); Calc. Creatinine Clearance 81 mL/min (70-130); Calcium 9.2 mg/dL (7.8-10.44); Carbon Dioxide 27 mmol/L (23-31); Chloride 101 mmol/L (98-107); Estimated GFR 78; Glucose 194 mg/dL (83-110); Potassium 3.6 mmol/L (3.5-5.1); Sodium 135 mmol/L (136-145)
[2022-06-04] MEDS: HumaLOG 300 UNITS/3 ML VIAL SC PRN (05:49)
[2022-06-04] MEDS ORDERED: Carvedilol 6.25 MG TAB PO SCH (08:00)
[2022-06-04] MEDS: Famotidine 20 MG TAB PO SCH ×2 (09:01→21:31)
[2022-06-04] MEDS: Amlodipine 10 MG TAB PO SCH (09:02)
[2022-06-04] MEDS: Flecainide 50 MG TAB PO SCH ×2 (09:02→21:31)
[2022-06-04] MEDS: Aspirin 81 mg Enteric Coated Tablet PO SCH (09:02)
[2022-06-04] MEDS: Apixaban 5 MG TAB PO SCH ×2 (09:02→21:31)
[2022-06-04] MEDS: Folic Acid 1 MG TAB PO SCH (09:02)
[2022-06-04] MEDS: Cefepime 1 GM in Sodium Chloride 0.9% 100 ML IVPB SCH (09:03)
[2022-06-04] MEDS: Insulin Regular 300 UNITS/3 ML VIAL SC PRN ×3 (13:03→21:32)
[2022-06-04] MEDS ORDERED: VANCOMYCIN 1.75 GM/500 ML BAG 1.75 GM in Premix Bag 1 BAG IVPB SCH (14:00)
[2022-06-04] MEDS: Carvedilol 25 MG TAB PO SCH (16:57)
[2022-06-04] MEDS: Alogliptin 6.25 MG TAB PO SCH (21:30)
[2022-06-04] MEDS: Insulin Glargine 30 UNITS/0.3 ML VIAL SC SCH (21:31)
[2022-06-04] MEDS: Rosuvastatin 20 MG TAB PO SCH (21:32)
[2022-06-04] MEDS: metFORMIN 500 MG TAB PO SCH (21:32)
[2022-06-04] MEDS: Losartan 25 MG TAB PO SCH (21:32)
[2022-06-05 05:52] LABS: #Eosinphils 0.5 thou/uL (0.0-0.7); #Monocytes 0.8 thou/uL (0.11-0.59); #Neutrophils 5.4 thou/uL (1.40-6.50); %Eosinophils 5.4 % (0.0-10.0); %Lymphocytes 23.5 % (21.0-51.0); %Monocytes 8.9 % (0.0-10.0); %Neutrophils 62.2 % (42.0-75.0); Mean Corpuscular Volume 81.2 fl (78.0-98.0); Mean Platelet Volume 7.5 fL (7.4-10.4); Platelet Count 269 10x3/uL (130-400); RBC Distribution Width 15.9 % (11.5-14.5); White Blood Cell (WBC) Count 8.6 10x3/uL (4.8-10.8)
[2022-06-05 06:00] LABS: Anion Gap 12 mmol/L (10-20); BUN (Urea Nitrogen) 17 mg/dL (9.8-20.1); Calc. Creatinine Clearance 76 mL/min (70-130); Carbon Dioxide 27 mmol/L (23-31); Chloride 101 mmol/L (98-107); Potassium 3.3 mmol/L (3.5-5.1); Sodium 137 mmol/L (136-145)
[2022-06-05 06:01] LABS: Calcium 8.7 mg/dL (7.8-10.44); Estimated GFR 73; Glucose 115 mg/dL (83-110)
[2022-06-05] MEDS: Insulin Regular 300 UNITS/3 ML VIAL SC PRN ×2 (06:44→17:32)
[2022-06-05] MEDS: Furosemide 40 MG/4 ML VIAL SLOW IVP SCH ×2 (06:44→17:32)
[2022-06-05] MEDS ORDERED: Electrolyte Replacement Protocol 1 EACH FS SCH (08:00)
[2022-06-05] MEDS ORDERED: Potassium Chloride 20 MEQ TAB PO SCH (08:00)
[2022-06-05] MEDS: Folic Acid 1 MG TAB PO SCH (09:33)
[2022-06-05] MEDS: Alogliptin 6.25 MG TAB PO SCH ×2 (09:33→21:12)
[2022-06-05] MEDS: Flecainide 50 MG TAB PO SCH ×2 (09:33→21:16)
[2022-06-05] MEDS: Aspirin 81 mg Enteric Coated Tablet PO SCH (09:34)
[2022-06-05] MEDS: Losartan 25 MG TAB PO SCH ×2 (09:34→21:16)
[2022-06-05] MEDS: Carvedilol 25 MG TAB PO SCH ×2 (09:34→17:32)
[2022-06-05] MEDS: metFORMIN 500 MG TAB PO SCH ×2 (09:34→21:12)
[2022-06-05] MEDS: Famotidine 20 MG TAB PO SCH ×2 (09:34→21:16)
[2022-06-05] MEDS: Amlodipine 10 MG TAB PO SCH (09:34)
[2022-06-05] MEDS: Apixaban 5 MG TAB PO SCH ×2 (09:35→21:13)
[2022-06-05] MEDS: Insulin Glargine 30 UNITS/0.3 ML VIAL SC SCH ×2 (09:36→21:16)
[2022-06-05] MEDS ORDERED: cefTRIAXone\\ROCEPHIN 1 GM in Sodium Chloride 0.9% 100 ML IVPB SCH (17:00)
[2022-06-05 18:12] LABS: Hemoglobin 7.2 g/dL (12.0-16.0); Platelet Count 291 10x3/uL (130-400)
[2022-06-05] MEDS ORDERED: Insulin Regular 300 UNITS/3 ML VIAL SC PRN (21:04)
[2022-06-05] MEDS: Rosuvastatin 20 MG TAB PO SCH (21:16)
[2022-06-05] MEDS: Acetaminophen 325 MG TAB PO PRN (21:16)
[2022-06-05] MEDS: HumaLOG 300 UNITS/3 ML VIAL SC PRN (21:19)
[2022-06-06 05:35] LABS: Hemoglobin 7.1 g/dL (12.0-16.0); Platelet Count 271 10x3/uL (130-400)
[2022-06-06 05:50] LABS: Anion Gap 14 mmol/L (10-20); BUN (Urea Nitrogen) 21 mg/dL (9.8-20.1); Calc. Creatinine Clearance 64 mL/min (70-130); Calcium 8.9 mg/dL (7.8-10.44); Carbon Dioxide 26 mmol/L (23-31); Chloride 102 mmol/L (98-107); Estimated GFR 59; Glucose 140 mg/dL (83-110); Potassium 3.6 mmol/L (3.5-5.1); Sodium 138 mmol/L (136-145)
[2022-06-06] MEDS: Acetaminophen 325 MG TAB PO PRN ×2 (06:19→14:44)
[2022-06-06] MEDS: Furosemide 40 MG/4 ML VIAL SLOW IVP SCH (06:20)
[2022-06-06] MEDS: Alogliptin 6.25 MG TAB PO SCH (08:24)
[2022-06-06] MEDS: metFORMIN 500 MG TAB PO SCH (08:24)
[2022-06-06] MEDS: Losartan 25 MG TAB PO SCH (08:24)
[2022-06-06] MEDS: Folic Acid 1 MG TAB PO SCH (08:24)
[2022-06-06] MEDS: Amlodipine 10 MG TAB PO SCH (08:25)
[2022-06-06] MEDS: Apixaban 5 MG TAB PO SCH (08:25)
[2022-06-06] MEDS: Aspirin 81 mg Enteric Coated Tablet PO SCH (08:25)
[2022-06-06] MEDS: Carvedilol 25 MG TAB PO SCH (08:25)
[2022-06-06] MEDS: Insulin Glargine 30 UNITS/0.3 ML VIAL SC SCH (08:25)
[2022-06-06] MEDS: Famotidine 20 MG TAB PO SCH (08:25)
[2022-06-06] MEDS: Flecainide 50 MG TAB PO SCH (08:25)
[2022-06-06 11:21] VITALS: TEMP 97
[2022-06-06 11:45] VITALS: BP 134/59
[2022-06-06] MEDS: Insulin Regular 300 UNITS/3 ML VIAL SC PRN (11:51)
== END 2022-06-06 13:27 | disposition home health service (06) | DRG 291 ==
LOC: ERS 07:32 → ERHOLD 10:52 → NEURO 15:42
PROVIDERS: ADMIT Internal Medicine; ATTEND Family Medicine
DX: I11.0 Hypertensive heart disease with heart failure (principal); I50.33 Acute on chronic diastolic (congestive) heart failure; J96.01 Acute respiratory failure with hypoxia; N39.0 Urinary tract infection, site not specified; I38 Endocarditis, valve unspecified; Z20.822 Contact with and (suspected) exposure to COVID-19; I48.0 Paroxysmal atrial fibrillation; D63.8 Anemia in other chronic diseases classified elsewhere; E11.65 Type 2 diabetes mellitus with hyperglycemia; E11.51 Type 2 diabetes mellitus with diabetic peripheral angiopathy without gangrene; I07.1 Rheumatic tricuspid insufficiency; I49.5 Sick sinus syndrome; R82.71 Bacteriuria; Z97.10 Presence of artificial limb (complete) (partial), unspecified; Z79.84 Long term (current) use of oral hypoglycemic drugs; Z79.899 Other long term (current) drug therapy; Z86.73 Personal history of transient ischemic attack (TIA), and cerebral infarction without residual deficits; Z79.82 Long term (current) use of aspirin; Z79.4 Long term (current) use of insulin; Z95.0 Presence of cardiac pacemaker
CPT/HCPCS: 36415; 36416; 71045; 71275; 80048; 80053; 81003; 81015; 82805; 83605; 83880; 84484; 85014; 85018; 85025; 85049; 85379; 85610; 85730; 86850; 86900; 86901; 87040; 87077; 87086; 87186; 93005; 93306; 93798; 94660; 96365; 96367; 96375; J0692; J0696; J1815; J1940; J3370; J3370-JW; J3490; J7050; Q9967

== ENCOUNTER 2022-06-11 19:55 | Emergency (ER) | payer MEDICARE ==
[2022-06-11 20:29] LABS: #Eosinphils 0.4 thou/uL (0.0-0.7); #Lymphocytes 1.8 thou/uL (1.20-3.40); #Monocytes 0.6 thou/uL (0.11-0.59); #Neutrophils 5.8 thou/uL (1.40-6.50); %Basophils 0.2 % (0.0-1.0); %Eosinophils 4.1 % (0.0-10.0); %Monocytes 7.5 % (0.0-10.0); %Neutrophils 67.2 % (42.0-75.0); Hemoglobin 7.6 g/dL (12.0-16.0); Mean Corpuscular Hemoglobin 25.9 pg (27.0-31.0); Mean Corpuscular Volume 80.9 fl (78.0-98.0); Mean Platelet Volume 7.9 fL (7.4-10.4); Platelet Count 327 10x3/uL (130-400); RBC Distribution Width 16.6 % (11.5-14.5); Red Blood Cell (RBC) Count 2.94 mill/uL (4.20-5.40); White Blood Cell (WBC) Count 8.6 10x3/uL (4.8-10.8)
[2022-06-11 20:46] LABS: ALT (SGPT) 11 U/L (8-55); AST (SGOT) 12 U/L (5-34); Albumin 3.3 g/dL (3.4-4.8); Alkaline Phosphatase 81 U/L (40-110); Anion Gap 15 mmol/L (10-20); BUN (Urea Nitrogen) 20 mg/dL (9.8-20.1); Bilirubin, Total 0.5 mg/dL (0.2-1.2); Calc. Creatinine Clearance 0 mL/min (70-130); Calcium 8.8 mg/dL (7.8-10.44); Carbon Dioxide 22 mmol/L (23-31); Chloride 103 mmol/L (98-107); Estimated GFR 63; Globulin 3.7 g/dL (2.4-3.5); Glucose 207 mg/dL (83-110); Lipase 24 U/L (8-78); Potassium 4.1 mmol/L (3.5-5.1); Sodium 136 mmol/L (136-145)
== END 2022-06-11 23:21 | disposition home or self-care (01) ==
LOC: ERS 19:55
DX: I11.0 Hypertensive heart disease with heart failure (principal); I50.9 Heart failure, unspecified; E11.9 Type 2 diabetes mellitus without complications
CPT/HCPCS: 36415; 71045; 80053; 83690; 83880; 84484; 85025; 93005

== ENCOUNTER 2022-08-11 09:25 | Inpatient (IN) | payer MEDICARE ==
[2022-08-11 10:15] LABS: #Eosinphils 0.1 thou/uL (0.0-0.7); #Lymphocytes 1.5 thou/uL (1.20-3.40); #Monocytes 0.5 thou/uL (0.11-0.59); #Neutrophils 5.5 thou/uL (1.40-6.50); %Basophils 0.5 % (0.0-1.0); %Eosinophils 1.2 % (0.0-10.0); %Lymphocytes 19.9 % (21.0-51.0); %Monocytes 6.6 % (0.0-10.0); %Neutrophils 71.9 % (42.0-75.0); Hemoglobin 11.4 g/dL (12.0-16.0); Mean Corpuscular HGB CONC 32.5 g/dL (32.0-36.0); Mean Corpuscular Volume 89.3 fl (78.0-98.0); Mean Platelet Volume 8.7 fL (7.4-10.4); Platelet Count 189 10x3/uL (130-400); RBC Distribution Width 18.7 % (11.5-14.5); Red Blood Cell (RBC) Count 3.93 mill/uL (4.20-5.40); White Blood Cell (WBC) Count 7.6 10x3/uL (4.8-10.8)
[2022-08-11] MEDS ORDERED: Ondansetron PF 4 MG/2 ML Vial ONE (10:25)
[2022-08-11 10:39] LABS: ALT (SGPT) Less than 7 U/L (8-55); AST (SGOT) 10 U/L (5-34); Albumin 3.6 g/dL (3.4-4.8); Alkaline Phosphatase 67 U/L (40-110); Anion Gap 17 mmol/L (10-20); BUN (Urea Nitrogen) 18 mg/dL (9.8-20.1); Bilirubin, Total 0.4 mg/dL (0.2-1.2); Calc. Creatinine Clearance 0 mL/min (70-130); Calcium 9.2 mg/dL (7.8-10.44); Carbon Dioxide 22 mmol/L (23-31); Chloride 105 mmol/L (98-107); Estimated GFR 66; Globulin 4.1 g/dL (2.4-3.5); Glucose 150 mg/dL (83-110); Potassium 2.9 mmol/L (3.5-5.1); Protein, Total 7.7 g/dL (5.8-8.1); Sodium 141 mmol/L (136-145)
[2022-08-11] MEDS ORDERED: Senokot S 8.6-50 MG TAB PO PRN (11:43)
[2022-08-11] MEDS ORDERED: Ondansetron PF 4 MG/2 ML Vial IVP PRN (11:43)
[2022-08-11] MEDS ORDERED: Calcium Carbonate 500 MG ChewTAB PO PRN (11:43)
[2022-08-11] MEDS ORDERED: Dextrose 50% Abboject 50 ML SYRINGE SLOW IVP PRN (11:45)
[2022-08-11] MEDS ORDERED: Dextrose 5% in Water 1,000 ML IV PRN (11:45)
[2022-08-11] MEDS ORDERED: Potassium Chloride 40 MEQ in Sodium Chloride 0.9% 250 ML 250 ML IVPB SCH (12:15)
[2022-08-11] MEDS ORDERED: Acetaminophen 325 MG TAB ONE (14:16)
[2022-08-11 16:38] VITALS: BMI 34.6
[2022-08-11] MEDS: Potassium Chloride 20 MEQ TAB PO SCH ×4 (17:36→20:43)
[2022-08-11] MEDS: Carvedilol 25 MG TAB PO SCH (17:40)
[2022-08-11] MEDS: Furosemide 40 MG/4 ML VIAL SLOW IVP SCH (17:40)
[2022-08-11 17:41] LABS: Anion Gap 17 mmol/L (10-20); BUN (Urea Nitrogen) 16 mg/dL (9.8-20.1); Calc. Creatinine Clearance 74 mL/min (70-130); Calcium 8.9 mg/dL (7.8-10.44); Carbon Dioxide 19 mmol/L (23-31); Chloride 107 mmol/L (98-107); Estimated GFR 64; Glucose 208 mg/dL (83-110); Magnesium 1.2 mg/dL (1.6-2.6); Potassium 3.8 mmol/L (3.5-5.1); Sodium 139 mmol/L (136-145)
[2022-08-11] MEDS: Apixaban 5 MG TAB PO SCH (20:44)
[2022-08-11] MEDS: Insulin Glargine 30 UNITS/0.3 ML VIAL SC SCH (20:44)
[2022-08-11] MEDS: Rosuvastatin 20 MG TAB PO SCH (20:44)
[2022-08-11] MEDS: Losartan 25 MG TAB PO SCH (20:44)
[2022-08-11] MEDS: Acetaminophen 325 MG TAB PO PRN (20:53)
[2022-08-11] MEDS: Flecainide 50 MG TAB PO SCH (20:54)
[2022-08-12] MEDS: Furosemide 40 MG/4 ML VIAL SLOW IVP SCH ×2 (04:45→13:36)
[2022-08-12 05:10] LABS: #Eosinphils 0.1 thou/uL (0.0-0.7); #Lymphocytes 1.7 thou/uL (1.20-3.40); #Monocytes 0.7 thou/uL (0.11-0.59); #Neutrophils 5.1 thou/uL (1.40-6.50); %Eosinophils 1.7 % (0.0-10.0); %Lymphocytes 22.5 % (21.0-51.0); %Monocytes 9.2 % (0.0-10.0); %Neutrophils 66.5 % (42.0-75.0); Hemoglobin 11.1 g/dL (12.0-16.0); Mean Corpuscular HGB CONC 32.3 g/dL (32.0-36.0); Mean Corpuscular Hemoglobin 29.1 pg (27.0-31.0); Mean Platelet Volume 8.7 fL (7.4-10.4); Platelet Count 200 10x3/uL (130-400); RBC Distribution Width 18.5 % (11.5-14.5); White Blood Cell (WBC) Count 7.7 10x3/uL (4.8-10.8)
[2022-08-12] MEDS ORDERED: hydrALAZINE 20 MG/ML VIAL SLOW IVP SCH (05:30)
[2022-08-12] MEDS ORDERED: Electrolyte Replacement Protocol 1 EACH FS SCH (05:30)
[2022-08-12] MEDS ORDERED: Magnesium Sulfate In Water 4 GM in Premix Bag 1 BAG IVPB SCH (05:30)
[2022-08-12] MEDS ORDERED: Potassium Chloride 20 MEQ TAB PO SCH (05:30)
[2022-08-12] MEDS ORDERED: Magnesium Sulfate 4 GM in Sodium Chloride 0.9% 250 ML 250 ML IVPB SCH (05:30)
[2022-08-12 05:35] LABS: ALT (SGPT) Less than 7 U/L (8-55); AST (SGOT) 9 U/L (5-34); Albumin 3.3 g/dL (3.4-4.8); Alkaline Phosphatase 62 U/L (40-110); Anion Gap 12 mmol/L (10-20); BUN (Urea Nitrogen) 15 mg/dL (9.8-20.1); Bilirubin, Total 0.5 mg/dL (0.2-1.2); Calc. Creatinine Clearance 76 mL/min (70-130); Calcium 8.9 mg/dL (7.8-10.44); Carbon Dioxide 24 mmol/L (23-31); Chloride 108 mmol/L (98-107); Estimated GFR 66; Globulin 3.7 g/dL (2.4-3.5); Glucose 202 mg/dL (83-110); Magnesium 1.4 mg/dL (1.6-2.6); Potassium 4.3 mmol/L (3.5-5.1); Sodium 140 mmol/L (136-145)
[2022-08-12] MEDS ORDERED: cloNIDine 0.1 MG TAB PO PRN (06:09)
[2022-08-12] MEDS: hydrALAZINE 20 MG/ML VIAL SLOW IVP PRN (06:15)
[2022-08-12] MEDS ORDERED: Furosemide 40 MG/4 ML VIAL SLOW IVP SCH (06:15)
[2022-08-12] MEDS ORDERED: Nitroglycerin 50 MG/250 ML BOT 250 ML IVPB SCH (06:30)
[2022-08-12] MEDS ORDERED: niCARdipine 25 MG in Sodium Chloride 0.9% 250 ML 250 ML IVPB SCH (06:30)
[2022-08-12] MEDS: HumaLOG 300 UNITS/3 ML VIAL SC PRN ×4 (06:35→22:19)
[2022-08-12] MEDS: Losartan 25 MG TAB PO SCH ×2 (07:27→22:12)
[2022-08-12] MEDS: Carvedilol 25 MG TAB PO SCH ×2 (07:28→17:34)
[2022-08-12] MEDS: Amlodipine 10 MG TAB PO SCH (07:28)
[2022-08-12] MEDS: Aspirin 81 mg Enteric Coated Tablet PO SCH (07:28)
[2022-08-12] MEDS: Apixaban 5 MG TAB PO SCH ×2 (07:28→22:12)
[2022-08-12] MEDS: Ferrous Sulfate 325 MG TAB PO SCH (07:28)
[2022-08-12] MEDS: Folic Acid 1 MG TAB PO SCH (07:28)
[2022-08-12] MEDS: Flecainide 50 MG TAB PO SCH ×2 (07:38→22:11)
[2022-08-12] MEDS: Insulin Glargine 30 UNITS/0.3 ML VIAL SC SCH ×2 (09:32→22:13)
[2022-08-12] MEDS ORDERED: Spironolactone 25 MG TAB PO SCH (13:30)
[2022-08-12] MEDS: Acetaminophen 325 MG TAB PO PRN ×2 (14:00→22:11)
[2022-08-12] MEDS: Rosuvastatin 20 MG TAB PO SCH (22:12)
[2022-08-13 04:53] LABS: #Eosinphils 0.1 thou/uL (0.0-0.7); #Lymphocytes 1.7 thou/uL (1.20-3.40); #Monocytes 0.6 thou/uL (0.11-0.59); #Neutrophils 5.1 thou/uL (1.40-6.50); %Basophils 0.2 % (0.0-1.0); %Eosinophils 1.8 % (0.0-10.0); %Lymphocytes 21.9 % (21.0-51.0); %Monocytes 7.9 % (0.0-10.0); %Neutrophils 68.3 % (42.0-75.0); Hemoglobin 10.5 g/dL (12.0-16.0); Mean Corpuscular HGB CONC 32.5 g/dL (32.0-36.0); Mean Corpuscular Hemoglobin 29.9 pg (27.0-31.0); Mean Corpuscular Volume 91.9 fl (78.0-98.0); Mean Platelet Volume 8.8 fL (7.4-10.4); Platelet Count 193 10x3/uL (130-400); RBC Distribution Width 18.4 % (11.5-14.5); Red Blood Cell (RBC) Count 3.51 mill/uL (4.20-5.40); White Blood Cell (WBC) Count 7.5 10x3/uL (4.8-10.8)
[2022-08-13 05:18] LABS: Anion Gap 14 mmol/L (10-20); BUN (Urea Nitrogen) 21 mg/dL (9.8-20.1); Calc. Creatinine Clearance 69 mL/min (70-130); Calcium 8.9 mg/dL (7.8-10.44); Carbon Dioxide 22 mmol/L (23-31); Chloride 105 mmol/L (98-107); Estimated GFR 58; Glucose 260 mg/dL (83-110); Potassium 4.2 mmol/L (3.5-5.1); Sodium 137 mmol/L (136-145)
[2022-08-13] MEDS: Furosemide 40 MG/4 ML VIAL SLOW IVP SCH ×2 (05:25→14:09)
[2022-08-13] MEDS: HumaLOG 300 UNITS/3 ML VIAL SC PRN ×3 (05:39→21:48)
[2022-08-13] MEDS ORDERED: Magnesium 2 GM/50 ML(in water) 2 GM in Premix Bag 1 BAG IVPB SCH (08:00)
[2022-08-13] MEDS: Losartan 25 MG TAB PO SCH ×2 (08:23→21:39)
[2022-08-13] MEDS: Aspirin 81 mg Enteric Coated Tablet PO SCH (08:23)
[2022-08-13] MEDS: Ferrous Sulfate 325 MG TAB PO SCH (08:24)
[2022-08-13] MEDS: Apixaban 5 MG TAB PO SCH ×2 (08:24→21:39)
[2022-08-13] MEDS: Carvedilol 25 MG TAB PO SCH ×2 (08:24→15:59)
[2022-08-13] MEDS: Folic Acid 1 MG TAB PO SCH (08:24)
[2022-08-13] MEDS: Flecainide 50 MG TAB PO SCH ×2 (08:24→21:39)
[2022-08-13] MEDS: Spironolactone 25 MG TAB PO SCH (08:25)
[2022-08-13] MEDS: Amlodipine 10 MG TAB PO SCH (08:25)
[2022-08-13] MEDS: Insulin Glargine 30 UNITS/0.3 ML VIAL SC SCH ×2 (08:25→21:40)
[2022-08-13] MEDS: Acetaminophen 325 MG TAB PO PRN (18:06)
[2022-08-13] MEDS: metFORMIN 500 MG TAB PO SCH (21:38)
[2022-08-13] MEDS: cloNIDine 0.1 MG TAB PO SCH (21:38)
[2022-08-13] MEDS: Rosuvastatin 20 MG TAB PO SCH (21:39)
[2022-08-13] MEDS: Alogliptin 6.25 MG TAB PO SCH (21:44)
[2022-08-14 05:10] LABS: Anion Gap 15 mmol/L (10-20); BUN (Urea Nitrogen) 24 mg/dL (9.8-20.1); Calc. Creatinine Clearance 62 mL/min (70-130); Calcium 9.1 mg/dL (7.8-10.44); Carbon Dioxide 22 mmol/L (23-31); Chloride 105 mmol/L (98-107); Estimated GFR 50; Glucose 125 mg/dL (83-110); Potassium 3.9 mmol/L (3.5-5.1); Sodium 138 mmol/L (136-145)
[2022-08-14] MEDS: Furosemide 40 MG/4 ML VIAL SLOW IVP SCH (06:32)
[2022-08-14] MEDS: Losartan 25 MG TAB PO SCH ×2 (08:37→20:29)
[2022-08-14] MEDS: Alogliptin 6.25 MG TAB PO SCH ×2 (08:37→20:29)
[2022-08-14] MEDS: metFORMIN 500 MG TAB PO SCH ×2 (08:38→20:29)
[2022-08-14] MEDS: Folic Acid 1 MG TAB PO SCH (08:38)
[2022-08-14] MEDS: Ferrous Sulfate 325 MG TAB PO SCH (08:38)
[2022-08-14] MEDS: Flecainide 50 MG TAB PO SCH ×2 (08:38→20:29)
[2022-08-14] MEDS: Aspirin 81 mg Enteric Coated Tablet PO SCH (08:38)
[2022-08-14] MEDS: Spironolactone 25 MG TAB PO SCH (08:39)
[2022-08-14] MEDS: Carvedilol 25 MG TAB PO SCH ×2 (08:39→17:26)
[2022-08-14] MEDS: Insulin Glargine 30 UNITS/0.3 ML VIAL SC SCH ×2 (08:39→21:12)
[2022-08-14] MEDS: Apixaban 5 MG TAB PO SCH (08:39)
[2022-08-14] MEDS: Amlodipine 10 MG TAB PO SCH (08:39)
[2022-08-14] MEDS: Acetaminophen 325 MG TAB PO PRN (11:54)
[2022-08-14] MEDS ORDERED: Albumin 25% 25 GM/100 ML BOT IVPB SCH (12:30)
[2022-08-14] MEDS ORDERED: Furosemide 20 MG/2 ML VIAL SLOW IVP SCH (14:00)
[2022-08-14] MEDS ORDERED: Iopamidol-370 76% 500 ML MDV (1 ML CHARGE) ONE (15:30)
[2022-08-14] MEDS: Albumin 25% 25 GM/100 ML BOT IVPB SCH (17:26)
[2022-08-14] MEDS: Rosuvastatin 20 MG TAB PO SCH (20:30)
[2022-08-14] MEDS: cloNIDine 0.1 MG TAB PO SCH (20:34)
[2022-08-15] MEDS: Albumin 25% 25 GM/100 ML BOT IVPB SCH ×2 (00:38→05:52)
[2022-08-15 04:44] LABS: Anion Gap 15 mmol/L (10-20); BUN (Urea Nitrogen) 26 mg/dL (9.8-20.1); Calc. Creatinine Clearance 61 mL/min (70-130); Calcium 9.5 mg/dL (7.8-10.44); Carbon Dioxide 21 mmol/L (23-31); Chloride 107 mmol/L (98-107); Estimated GFR 50; Glucose 62 mg/dL (83-110); Sodium 139 mmol/L (136-145)
[2022-08-15] MEDS: Amlodipine 10 MG TAB PO SCH (08:37)
[2022-08-15] MEDS: Aspirin 81 mg Enteric Coated Tablet PO SCH (08:37)
[2022-08-15] MEDS: Spironolactone 25 MG TAB PO SCH (08:37)
[2022-08-15] MEDS: Losartan 25 MG TAB PO SCH ×2 (08:37→21:31)
[2022-08-15] MEDS: Alogliptin 6.25 MG TAB PO SCH ×2 (08:37→21:30)
[2022-08-15] MEDS: Folic Acid 1 MG TAB PO SCH (08:37)
[2022-08-15] MEDS: metFORMIN 500 MG TAB PO SCH (08:38)
[2022-08-15] MEDS: Flecainide 50 MG TAB PO SCH ×2 (08:38→21:34)
[2022-08-15] MEDS: Carvedilol 25 MG TAB PO SCH ×2 (08:38→17:27)
[2022-08-15] MEDS: Ferrous Sulfate 325 MG TAB PO SCH (08:38)
[2022-08-15] MEDS: Furosemide 20 MG/2 ML VIAL SLOW IVP SCH (08:38)
[2022-08-15] MEDS: Insulin Glargine 30 UNITS/0.3 ML VIAL SC SCH ×2 (08:39→21:30)
[2022-08-15] MEDS ORDERED: Loperamide HCl 2 MG CAP PO PRN ×2 (12:08)
[2022-08-15] MEDS: Rosuvastatin 20 MG TAB PO SCH (21:31)
[2022-08-15] MEDS: cloNIDine 0.1 MG TAB PO SCH (21:31)
[2022-08-16 04:30] LABS: Hemoglobin 8.5 g/dL (12.0-16.0); Platelet Count 182 10x3/uL (130-400)
[2022-08-16 04:55] LABS: Anion Gap 13 mmol/L (10-20); BUN (Urea Nitrogen) 32 mg/dL (9.8-20.1); Calc. Creatinine Clearance 49 mL/min (70-130); Calcium 9.2 mg/dL (7.8-10.44); Carbon Dioxide 23 mmol/L (23-31); Chloride 105 mmol/L (98-107); Estimated GFR 38; Glucose 79 mg/dL (83-110); Potassium 4.1 mmol/L (3.5-5.1); Sodium 137 mmol/L (136-145)
[2022-08-16 08:08] LABS: Clarity Turbid (Clear); Glucose, Urine (Dipstick) Unable to Interpret mg/dL (Negative); Ketone, Urine Unable to Interpret mg/dL (Negative); Leukocyte Unable to Interpret Leu/uL (Negative); Nitrite Unable to Interpret (Negative); Protein, Urine (Dipstick) Unable to Interpret mg/dL (Neg-Trace); Specific Gravity, Urine 1.044 (1.002-1.036); pH, Urine 5.1 (5.0-9.0)
[2022-08-16 08:09] LABS: Bilirubin Unable to Interpret (Negative); Blood, Urine Unable to Interpret (Negative); Urobilinogen UNABLE TO INTERPRET mg/dL (Less than 2)
[2022-08-16 08:10] LABS: RBC/HPF Greater than 50 HPF (0-3)
[2022-08-16 08:11] LABS: Bacteria/HPF 4+ HPF (None Seen); Squamous Epithelial 0-3 HPF (0-3); Transitional Epithelial 0-3 HPF (None Seen); WBC/HPF 21-50 HPF (0-3)
[2022-08-16] MEDS: Losartan 25 MG TAB PO SCH ×2 (12:12→23:03)
[2022-08-16] MEDS: Alogliptin 6.25 MG TAB PO SCH ×2 (12:12→23:05)
[2022-08-16] MEDS: Folic Acid 1 MG TAB PO SCH (12:12)
[2022-08-16] MEDS: Amlodipine 10 MG TAB PO SCH ×2 (12:13→12:14)
[2022-08-16] MEDS: Aspirin 81 mg Enteric Coated Tablet PO SCH (12:13)
[2022-08-16] MEDS: Ferrous Sulfate 325 MG TAB PO SCH (12:14)
[2022-08-16] MEDS: Carvedilol 25 MG TAB PO SCH ×2 (12:14→17:14)
[2022-08-16] MEDS: Spironolactone 25 MG TAB PO SCH (12:14)
[2022-08-16] MEDS: Insulin Glargine 30 UNITS/0.3 ML VIAL SC SCH ×2 (12:15→21:38)
[2022-08-16] MEDS: Furosemide 20 MG/2 ML VIAL SLOW IVP SCH (12:24)
[2022-08-16] MEDS: Flecainide 50 MG TAB PO SCH ×2 (12:24→21:05)
[2022-08-16 15:52] LABS: Platelet Count 151 10x3/uL (130-400)
[2022-08-16] MEDS: Rosuvastatin 20 MG TAB PO SCH (21:05)
[2022-08-16] MEDS: cloNIDine 0.1 MG TAB PO SCH (23:05)
[2022-08-17] MEDS: Melatonin 3 MG TAB PO PRN (03:05)
[2022-08-17 04:54] LABS: #Eosinphils 0.1 thou/uL (0.0-0.7); #Lymphocytes 1.9 thou/uL (1.20-3.40); #Monocytes 0.6 thou/uL (0.11-0.59); #Neutrophils 4.4 thou/uL (1.40-6.50); %Basophils 0.5 % (0.0-1.0); %Lymphocytes 26.8 % (21.0-51.0); %Neutrophils 61.7 % (42.0-75.0); Hemoglobin 8.9 g/dL (12.0-16.0); Mean Corpuscular HGB CONC 32.4 g/dL (32.0-36.0); Mean Corpuscular Hemoglobin 29.6 pg (27.0-31.0); Mean Corpuscular Volume 91.2 fl (78.0-98.0); Mean Platelet Volume 9.1 fL (7.4-10.4); Platelet Count 207 10x3/uL (130-400); Red Blood Cell (RBC) Count 2.99 mill/uL (4.20-5.40); White Blood Cell (WBC) Count 7.1 10x3/uL (4.8-10.8)
[2022-08-17 05:15] LABS: Anion Gap 14 mmol/L (10-20); BUN (Urea Nitrogen) 40 mg/dL (9.8-20.1); Calc. Creatinine Clearance 46 mL/min (70-130); Calcium 9.4 mg/dL (7.8-10.44); Carbon Dioxide 22 mmol/L (23-31); Chloride 104 mmol/L (98-107); Estimated GFR 35; Glucose 131 mg/dL (83-110); Potassium 4.3 mmol/L (3.5-5.1); Sodium 136 mmol/L (136-145)
[2022-08-17 09:32] LABS: Bilirubin Unable to Interpret (Negative); Blood, Urine Unable to Interpret (Negative); Clarity Turbid (Clear); Glucose, Urine (Dipstick) Unable to Interpret mg/dL (Negative); Ketone, Urine Unable to Interpret mg/dL (Negative); Leukocyte Unable to Interpret Leu/uL (Negative); Nitrite Unable to Interpret (Negative); Protein, Urine (Dipstick) Unable to Interpret mg/dL (Neg-Trace); Specific Gravity, Urine 1.025 (1.002-1.036); Urobilinogen UNABLE TO INTERPRET mg/dL (Less than 2); pH, Urine 5.1 (5.0-9.0)
[2022-08-17 09:33] LABS: Bacteria/HPF 4+ HPF (None Seen); CAUTI Indications for Culture Acute Hematuria; RBC/HPF Greater than 50 HPF (0-3); Squamous Epithelial 0-3 HPF (0-3)
[2022-08-17 09:34] LABS: Urine Culture Reflex Yes Yes
[2022-08-17] MEDS: Alogliptin 6.25 MG TAB PO SCH ×2 (10:51→20:53)
[2022-08-17] MEDS: Losartan 25 MG TAB PO SCH ×2 (10:52→20:54)
[2022-08-17] MEDS: Aspirin 81 mg Enteric Coated Tablet PO SCH (10:52)
[2022-08-17] MEDS: Carvedilol 25 MG TAB PO SCH (10:52)
[2022-08-17] MEDS: Ferrous Sulfate 325 MG TAB PO SCH (10:53)
[2022-08-17] MEDS: Spironolactone 25 MG TAB PO SCH (10:54)
[2022-08-17] MEDS: Folic Acid 1 MG TAB PO SCH (10:55)
[2022-08-17] MEDS: Flecainide 50 MG TAB PO SCH ×2 (10:55→20:53)
[2022-08-17] MEDS: Insulin Glargine 30 UNITS/0.3 ML VIAL SC SCH ×2 (10:56→20:55)
[2022-08-17] MEDS: Furosemide 20 MG/2 ML VIAL SLOW IVP SCH (12:01)
[2022-08-17] MEDS ORDERED: cefTRIAXone\\ROCEPHIN 1 GM in Sodium Chloride 0.9% 100 ML IVPB SCH (13:00)
[2022-08-17 14:22] LABS: Hemoglobin 9.1 g/dL (12.0-16.0)
[2022-08-17 15:16] LABS: Reticulocyte Count 2.4 % (0.5-1.5)
[2022-08-17] MEDS: Cefepime 2 GM in Sodium Chloride 0.9% 100 ML IVPB SCH (15:22)
[2022-08-17 15:49] LABS: Iron 24 ug/dL (50-170); Iron Binding Capacity, Total 211 mcg/dL (265-497)
[2022-08-17] MEDS: Doxycycline 100 MG in Sodium Chloride 0.9% 100 ML IVPB SCH (17:04)
[2022-08-17] MEDS: HumaLOG 300 UNITS/3 ML VIAL SC PRN (18:27)
[2022-08-17] MEDS: cloNIDine 0.1 MG TAB PO SCH (20:52)
[2022-08-17] MEDS: Rosuvastatin 20 MG TAB PO SCH (20:53)
[2022-08-17 22:13] LABS: Hemoglobin 9.2 g/dL (12.0-16.0)
[2022-08-18] MEDS: Cefepime 2 GM in Sodium Chloride 0.9% 100 ML IVPB SCH ×2 (03:06→15:22)
[2022-08-18] MEDS: Doxycycline 100 MG in Sodium Chloride 0.9% 100 ML IVPB SCH ×2 (03:49→17:03)
[2022-08-18 05:03] LABS: #Eosinphils 0.1 thou/uL (0.0-0.7); #Lymphocytes 1.6 thou/uL (1.20-3.40); #Monocytes 0.7 thou/uL (0.11-0.59); #Neutrophils 4.3 thou/uL (1.40-6.50); %Basophils 0.3 % (0.0-1.0); %Eosinophils 1.6 % (0.0-10.0); %Lymphocytes 24.3 % (21.0-51.0); %Monocytes 9.9 % (0.0-10.0); %Neutrophils 63.9 % (42.0-75.0); Hemoglobin 8.8 g/dL (12.0-16.0); Mean Corpuscular HGB CONC 32.5 g/dL (32.0-36.0); Mean Corpuscular Hemoglobin 29.2 pg (27.0-31.0); Mean Corpuscular Volume 89.8 fl (78.0-98.0); Mean Platelet Volume 8.7 fL (7.4-10.4); Platelet Count 229 10x3/uL (130-400); RBC Distribution Width 17.9 % (11.5-14.5); Red Blood Cell (RBC) Count 3.02 mill/uL (4.20-5.40); White Blood Cell (WBC) Count 6.7 10x3/uL (4.8-10.8)
[2022-08-18 05:20] LABS: ALT (SGPT) Less than 7 U/L (8-55); AST (SGOT) 8 U/L (5-34); Albumin 3.6 g/dL (3.4-4.8); Alkaline Phosphatase 80 U/L (40-110); Anion Gap 16 mmol/L (10-20); BUN (Urea Nitrogen) 47 mg/dL (9.8-20.1); Bilirubin, Total 0.3 mg/dL (0.2-1.2); Calc. Creatinine Clearance 46 mL/min (70-130); Calcium 9.3 mg/dL (7.8-10.44); Carbon Dioxide 21 mmol/L (23-31); Chloride 106 mmol/L (98-107); Estimated GFR 34; Globulin 3.3 g/dL (2.4-3.5); Glucose 119 mg/dL (83-110); Potassium 4.5 mmol/L (3.5-5.1); Protein, Total 6.9 g/dL (5.8-8.1); Sodium 138 mmol/L (136-145)
[2022-08-18] MEDS: Ferrous Sulfate 325 MG TAB PO SCH (08:46)
[2022-08-18] MEDS: Spironolactone 25 MG TAB PO SCH (08:47)
[2022-08-18] MEDS: Folic Acid 1 MG TAB PO SCH (08:47)
[2022-08-18] MEDS: Flecainide 50 MG TAB PO SCH ×2 (08:47→20:56)
[2022-08-18] MEDS: Losartan 25 MG TAB PO SCH ×2 (08:47→20:55)
[2022-08-18] MEDS: Aspirin 81 mg Enteric Coated Tablet PO SCH (08:47)
[2022-08-18] MEDS: Furosemide 20 MG/2 ML VIAL SLOW IVP SCH (08:48)
[2022-08-18] MEDS: Amlodipine 10 MG TAB PO SCH (08:49)
[2022-08-18] MEDS: Insulin Glargine 30 UNITS/0.3 ML VIAL SC SCH ×2 (08:50→20:56)
[2022-08-18] MEDS: Alogliptin 6.25 MG TAB PO SCH ×2 (08:51→20:56)
[2022-08-18] MEDS: metFORMIN 500 MG TAB PO SCH ×2 (11:37→20:56)
[2022-08-18 14:52] LABS: Hemoglobin 9.2 g/dL (12.0-16.0)
[2022-08-18] MEDS: cloNIDine 0.1 MG TAB PO SCH (20:55)
[2022-08-18] MEDS: Rosuvastatin 20 MG TAB PO SCH (20:56)
[2022-08-18 22:31] LABS: Hemoglobin 8.5 g/dL (12.0-16.0)
[2022-08-19] MEDS: Cefepime 2 GM in Sodium Chloride 0.9% 100 ML IVPB SCH ×2 (03:25→15:11)
[2022-08-19] MEDS: Doxycycline 100 MG in Sodium Chloride 0.9% 100 ML IVPB SCH (03:57)
[2022-08-19 05:00] LABS: #Eosinphils 0.1 thou/uL (0.0-0.7); #Lymphocytes 1.4 thou/uL (1.20-3.40); #Monocytes 0.8 thou/uL (0.11-0.59); #Neutrophils 4.2 thou/uL (1.40-6.50); %Basophils 0.2 % (0.0-1.0); %Eosinophils 2.1 % (0.0-10.0); %Lymphocytes 21.5 % (21.0-51.0); %Monocytes 11.6 % (0.0-10.0); %Neutrophils 64.6 % (42.0-75.0); Hemoglobin 8.2 g/dL (12.0-16.0); Mean Corpuscular HGB CONC 31.1 g/dL (32.0-36.0); Mean Corpuscular Hemoglobin 28.2 pg (27.0-31.0); Mean Corpuscular Volume 90.6 fl (78.0-98.0); Mean Platelet Volume 8.6 fL (7.4-10.4); Platelet Count 221 10x3/uL (130-400); RBC Distribution Width 17.7 % (11.5-14.5); Red Blood Cell (RBC) Count 2.92 mill/uL (4.20-5.40); White Blood Cell (WBC) Count 6.4 10x3/uL (4.8-10.8)
[2022-08-19 05:21] LABS: Anion Gap 15 mmol/L (10-20); BUN (Urea Nitrogen) 42 mg/dL (9.8-20.1); Calc. Creatinine Clearance 58 mL/min (70-130); Calcium 8.9 mg/dL (7.8-10.44); Carbon Dioxide 20 mmol/L (23-31); Chloride 109 mmol/L (98-107); Estimated GFR 46; Glucose 92 mg/dL (83-110); Potassium 4.1 mmol/L (3.5-5.1); Sodium 140 mmol/L (136-145)
[2022-08-19] MEDS: Furosemide 20 MG/2 ML VIAL SLOW IVP SCH (09:39)
[2022-08-19] MEDS: metFORMIN 500 MG TAB PO SCH ×2 (09:41→22:32)
[2022-08-19] MEDS: Losartan 25 MG TAB PO SCH ×2 (09:41→22:33)
[2022-08-19] MEDS: Ferrous Sulfate 325 MG TAB PO SCH ×2 (09:43→16:42)
[2022-08-19] MEDS: Alogliptin 6.25 MG TAB PO SCH ×2 (09:43→22:33)
[2022-08-19] MEDS: Amlodipine 10 MG TAB PO SCH (09:43)
[2022-08-19] MEDS: Spironolactone 25 MG TAB PO SCH (09:43)
[2022-08-19] MEDS: Insulin Glargine 30 UNITS/0.3 ML VIAL SC SCH ×2 (09:44→22:34)
[2022-08-19] MEDS: Flecainide 50 MG TAB PO SCH ×2 (09:44→22:32)
[2022-08-19] MEDS: Aspirin 81 mg Enteric Coated Tablet PO SCH (09:44)
[2022-08-19] MEDS: Folic Acid 1 MG TAB PO SCH (09:44)
[2022-08-19] MEDS ORDERED: Bisacodyl 5 MG TAB PO PRN (09:45)
[2022-08-19] MEDS: HumaLOG 300 UNITS/3 ML VIAL SC PRN (17:27)
[2022-08-19] MEDS: Rosuvastatin 20 MG TAB PO SCH (22:32)
[2022-08-19] MEDS: cloNIDine 0.1 MG TAB PO SCH (22:33)
[2022-08-20] MEDS: Cefepime 2 GM in Sodium Chloride 0.9% 100 ML IVPB SCH ×2 (02:56→14:51)
[2022-08-20] MEDS: Alogliptin 6.25 MG TAB PO SCH ×2 (08:43→21:27)
[2022-08-20] MEDS: Spironolactone 25 MG TAB PO SCH (08:43)
[2022-08-20] MEDS: Ferrous Sulfate 325 MG TAB PO SCH ×2 (08:43→16:30)
[2022-08-20] MEDS: Aspirin 81 mg Enteric Coated Tablet PO SCH (08:44)
[2022-08-20] MEDS: Folic Acid 1 MG TAB PO SCH (08:44)
[2022-08-20] MEDS: Amlodipine 10 MG TAB PO SCH (08:44)
[2022-08-20] MEDS: Furosemide 20 MG/2 ML VIAL SLOW IVP SCH (08:44)
[2022-08-20] MEDS: Flecainide 50 MG TAB PO SCH ×2 (08:44→21:29)
[2022-08-20] MEDS: Losartan 25 MG TAB PO SCH ×2 (08:45→21:29)
[2022-08-20] MEDS: metFORMIN 500 MG TAB PO SCH ×2 (08:45→21:28)
[2022-08-20] MEDS: Insulin Glargine 30 UNITS/0.3 ML VIAL SC SCH ×2 (08:45→21:30)
[2022-08-20 10:50] LABS: #Eosinphils 0.3 thou/uL (0.0-0.7); #Lymphocytes 2.2 thou/uL (1.20-3.40); #Monocytes 0.9 thou/uL (0.11-0.59); #Neutrophils 6.3 thou/uL (1.40-6.50); %Basophils 0.2 % (0.0-1.0); %Eosinophils 2.8 % (0.0-10.0); %Lymphocytes 22.5 % (21.0-51.0); %Monocytes 9.6 % (0.0-10.0); %Neutrophils 64.9 % (42.0-75.0); Hemoglobin 9.5 g/dL (12.0-16.0); Mean Corpuscular HGB CONC 32.6 g/dL (32.0-36.0); Mean Corpuscular Hemoglobin 29.4 pg (27.0-31.0); Mean Corpuscular Volume 90.1 fl (78.0-98.0); Mean Platelet Volume 8.8 fL (7.4-10.4); Platelet Count 224 10x3/uL (130-400); RBC Distribution Width 17.9 % (11.5-14.5); Red Blood Cell (RBC) Count 3.25 mill/uL (4.20-5.40); White Blood Cell (WBC) Count 9.7 10x3/uL (4.8-10.8)
[2022-08-20 15:48] LABS: Calcium 9.9 mg/dL (7.8-10.44); Chloride 111 mmol/L (98-107); Potassium 4.8 mmol/L (3.5-5.1); Sodium 140 mmol/L (136-145)
[2022-08-20 15:49] LABS: Glucose 167 mg/dL (83-110)
[2022-08-20 15:50] LABS: Anion Gap 16 mmol/L (10-20); Carbon Dioxide 18 mmol/L (23-31)
[2022-08-20 15:52] LABS: Calc. Creatinine Clearance 62 mL/min (70-130); Estimated GFR 47
[2022-08-20 15:53] LABS: BUN (Urea Nitrogen) 36 mg/dL (9.8-20.1)
[2022-08-20] MEDS: HumaLOG 300 UNITS/3 ML VIAL SC PRN ×2 (18:14→21:30)
[2022-08-20] MEDS: cefTRIAXone\\ROCEPHIN 1 GM in Sodium Chloride 0.9% 100 ML IVPB SCH (21:29)
[2022-08-20] MEDS: Rosuvastatin 20 MG TAB PO SCH (21:29)
[2022-08-20] MEDS: cloNIDine 0.1 MG TAB PO SCH (21:29)
[2022-08-21] MEDS: Ferrous Sulfate 325 MG TAB PO SCH ×2 (10:08→16:20)
[2022-08-21] MEDS: Losartan 25 MG TAB PO SCH ×2 (10:09→20:08)
[2022-08-21] MEDS: Alogliptin 6.25 MG TAB PO SCH ×2 (10:09→20:08)
[2022-08-21] MEDS: Spironolactone 25 MG TAB PO SCH (10:09)
[2022-08-21] MEDS: metFORMIN 500 MG TAB PO SCH ×2 (10:09→20:08)
[2022-08-21] MEDS: Folic Acid 1 MG TAB PO SCH (10:09)
[2022-08-21] MEDS: Flecainide 50 MG TAB PO SCH ×2 (10:09→20:09)
[2022-08-21] MEDS: Amlodipine 10 MG TAB PO SCH (10:10)
[2022-08-21] MEDS: Furosemide 20 MG/2 ML VIAL SLOW IVP SCH (10:10)
[2022-08-21] MEDS: Aspirin 81 mg Enteric Coated Tablet PO SCH (10:14)
[2022-08-21] MEDS: Insulin Glargine 30 UNITS/0.3 ML VIAL SC SCH (11:04)
[2022-08-21] MEDS ORDERED: Furosemide 40 MG/4 ML VIAL SLOW IVP SCH (18:15)
[2022-08-21] MEDS: Rosuvastatin 20 MG TAB PO SCH (20:08)
[2022-08-21] MEDS: cloNIDine 0.1 MG TAB PO SCH (20:08)
[2022-08-21] MEDS: cefTRIAXone\\ROCEPHIN 1 GM in Sodium Chloride 0.9% 100 ML IVPB SCH (20:09)
[2022-08-21] MEDS: Melatonin 3 MG TAB PO PRN (23:26)
[2022-08-22] MEDS: hydrALAZINE 20 MG/ML VIAL SLOW IVP PRN (04:29)
[2022-08-22 05:02] LABS: #Eosinphils 0.1 thou/uL (0.0-0.7); #Lymphocytes 1.8 thou/uL (1.20-3.40); #Monocytes 0.8 thou/uL (0.11-0.59); #Neutrophils 6.7 thou/uL (1.40-6.50); %Basophils 0.2 % (0.0-1.0); %Eosinophils 1.4 % (0.0-10.0); %Lymphocytes 18.7 % (21.0-51.0); %Monocytes 8.5 % (0.0-10.0); %Neutrophils 71.2 % (42.0-75.0); Hemoglobin 9.1 g/dL (12.0-16.0); Mean Corpuscular Hemoglobin 28.9 pg (27.0-31.0); Mean Corpuscular Volume 90.3 fl (78.0-98.0); Mean Platelet Volume 8.5 fL (7.4-10.4); Platelet Count 229 10x3/uL (130-400); RBC Distribution Width 17.5 % (11.5-14.5); Red Blood Cell (RBC) Count 3.14 mill/uL (4.20-5.40); White Blood Cell (WBC) Count 9.4 10x3/uL (4.8-10.8)
[2022-08-22 05:32] LABS: ALT (SGPT) Less than 7 U/L (8-55); AST (SGOT) 10 U/L (5-34); Albumin 3.7 g/dL (3.4-4.8); Alkaline Phosphatase 88 U/L (40-110); Anion Gap 13 mmol/L (10-20); BUN (Urea Nitrogen) 21 mg/dL (9.8-20.1); Bilirubin, Total 0.4 mg/dL (0.2-1.2); Calc. Creatinine Clearance 78 mL/min (70-130); Calcium 10.1 mg/dL (7.8-10.44); Carbon Dioxide 24 mmol/L (23-31); Chloride 106 mmol/L (98-107); Estimated GFR 63; Globulin 3.7 g/dL (2.4-3.5); Glucose 112 mg/dL (83-110); Protein, Total 7.4 g/dL (5.8-8.1); Sodium 139 mmol/L (136-145)
[2022-08-22] MEDS: Furosemide 40 MG/4 ML VIAL SLOW IVP SCH ×2 (06:32→13:21)
[2022-08-22] MEDS: Ferrous Sulfate 325 MG TAB PO SCH ×2 (09:02→17:05)
[2022-08-22] MEDS: Alogliptin 6.25 MG TAB PO SCH ×2 (09:02→20:44)
[2022-08-22] MEDS: Flecainide 50 MG TAB PO SCH ×2 (09:02→20:45)
[2022-08-22] MEDS: Losartan 25 MG TAB PO SCH ×2 (09:02→20:46)
[2022-08-22] MEDS: Amlodipine 10 MG TAB PO SCH (09:03)
[2022-08-22] MEDS: Aspirin 81 mg Enteric Coated Tablet PO SCH (09:03)
[2022-08-22] MEDS: metFORMIN 500 MG TAB PO SCH ×2 (09:03→20:43)
[2022-08-22] MEDS: Spironolactone 25 MG TAB PO SCH (09:03)
[2022-08-22] MEDS: Folic Acid 1 MG TAB PO SCH (09:03)
[2022-08-22] MEDS: HumaLOG 300 UNITS/3 ML VIAL SC PRN ×2 (17:05→20:52)
[2022-08-22] MEDS: cefTRIAXone\\ROCEPHIN 1 GM in Sodium Chloride 0.9% 100 ML IVPB SCH (20:42)
[2022-08-22] MEDS: Insulin Glargine 30 UNITS/0.3 ML VIAL SC SCH (20:43)
[2022-08-22] MEDS: Rosuvastatin 20 MG TAB PO SCH (20:44)
[2022-08-22] MEDS: cloNIDine 0.1 MG TAB PO SCH (20:46)
[2022-08-22] MEDS: Melatonin 3 MG TAB PO PRN (20:50)
[2022-08-23] MEDS: Furosemide 40 MG/4 ML VIAL SLOW IVP SCH ×2 (05:24→14:08)
[2022-08-23 07:59] LABS: #Eosinphils 0.1 thou/uL (0.0-0.7); #Lymphocytes 2.3 thou/uL (1.20-3.40); #Monocytes 0.7 thou/uL (0.11-0.59); #Neutrophils 4.9 thou/uL (1.40-6.50); %Basophils 0.3 % (0.0-1.0); %Eosinophils 1.8 % (0.0-10.0); %Lymphocytes 28.1 % (21.0-51.0); %Monocytes 8.9 % (0.0-10.0); Hemoglobin 8.7 g/dL (12.0-16.0); Mean Corpuscular HGB CONC 32.8 g/dL (32.0-36.0); Mean Corpuscular Hemoglobin 29.7 pg (27.0-31.0); Mean Corpuscular Volume 90.4 fl (78.0-98.0); Mean Platelet Volume 8.1 fL (7.4-10.4); Platelet Count 234 10x3/uL (130-400); RBC Distribution Width 17.3 % (11.5-14.5); Red Blood Cell (RBC) Count 2.94 mill/uL (4.20-5.40); White Blood Cell (WBC) Count 8.1 10x3/uL (4.8-10.8)
[2022-08-23 08:20] LABS: Anion Gap 14 mmol/L (10-20); BUN (Urea Nitrogen) 20 mg/dL (9.8-20.1); Calc. Creatinine Clearance 70 mL/min (70-130); Calcium 9.7 mg/dL (7.8-10.44); Carbon Dioxide 24 mmol/L (23-31); Chloride 104 mmol/L (98-107); Estimated GFR 57; Glucose 131 mg/dL (83-110); Sodium 138 mmol/L (136-145)
[2022-08-23] MEDS: Flecainide 50 MG TAB PO SCH ×2 (09:04→21:47)
[2022-08-23] MEDS: Alogliptin 6.25 MG TAB PO SCH ×2 (09:04→21:42)
[2022-08-23] MEDS: Losartan 25 MG TAB PO SCH ×2 (09:04→21:44)
[2022-08-23] MEDS: metFORMIN 500 MG TAB PO SCH ×2 (09:04→21:43)
[2022-08-23] MEDS: Folic Acid 1 MG TAB PO SCH (09:04)
[2022-08-23] MEDS: Aspirin 81 mg Enteric Coated Tablet PO SCH (09:04)
[2022-08-23] MEDS: Amlodipine 10 MG TAB PO SCH (09:04)
[2022-08-23] MEDS: Spironolactone 25 MG TAB PO SCH (09:04)
[2022-08-23] MEDS: Ferrous Sulfate 325 MG TAB PO SCH ×2 (09:05→16:45)
[2022-08-23] MEDS: Insulin Glargine 30 UNITS/0.3 ML VIAL SC SCH ×2 (09:05→21:43)
[2022-08-23] MEDS ORDERED: Cefpodoxime 200 MG TAB PO SCH (21:00)
[2022-08-23] MEDS: Melatonin 3 MG TAB PO PRN (21:43)
[2022-08-23] MEDS: Cefdinir 300 MG CAP PO SCH (21:43)
[2022-08-23] MEDS: cloNIDine 0.1 MG TAB PO SCH (21:44)
[2022-08-23] MEDS: Rosuvastatin 20 MG TAB PO SCH (21:47)
[2022-08-24 04:47] LABS: #Eosinphils 0.2 thou/uL (0.0-0.7); #Lymphocytes 1.8 thou/uL (1.20-3.40); #Monocytes 0.6 thou/uL (0.11-0.59); #Neutrophils 4.1 thou/uL (1.40-6.50); %Basophils 0.1 % (0.0-1.0); %Eosinophils 2.4 % (0.0-10.0); %Lymphocytes 26.7 % (21.0-51.0); %Monocytes 9.5 % (0.0-10.0); %Neutrophils 61.2 % (42.0-75.0); Hemoglobin 8.4 g/dL (12.0-16.0); Mean Corpuscular HGB CONC 32.9 g/dL (32.0-36.0); Mean Platelet Volume 8.2 fL (7.4-10.4); Platelet Count 203 10x3/uL (130-400); RBC Distribution Width 17.2 % (11.5-14.5); Red Blood Cell (RBC) Count 2.82 mill/uL (4.20-5.40); White Blood Cell (WBC) Count 6.7 10x3/uL (4.8-10.8)
[2022-08-24] MEDS: Furosemide 40 MG/4 ML VIAL SLOW IVP SCH ×2 (05:18→13:22)
[2022-08-24 05:21] LABS: Anion Gap 13 mmol/L (10-20); BUN (Urea Nitrogen) 23 mg/dL (9.8-20.1); Calc. Creatinine Clearance 74 mL/min (70-130); Calcium 9.4 mg/dL (7.8-10.44); Carbon Dioxide 25 mmol/L (23-31); Chloride 104 mmol/L (98-107); Estimated GFR 61; Glucose 61 mg/dL (83-110); Potassium 3.7 mmol/L (3.5-5.1); Sodium 138 mmol/L (136-145)
[2022-08-24] MEDS: Cefdinir 300 MG CAP PO SCH ×2 (09:03→20:56)
[2022-08-24] MEDS: Alogliptin 6.25 MG TAB PO SCH (09:03)
[2022-08-24] MEDS: Flecainide 50 MG TAB PO SCH ×2 (09:04→20:57)
[2022-08-24] MEDS: Ferrous Sulfate 325 MG TAB PO SCH ×2 (09:04→16:55)
[2022-08-24] MEDS: Losartan 25 MG TAB PO SCH ×2 (09:04→20:55)
[2022-08-24] MEDS: Amlodipine 10 MG TAB PO SCH (09:04)
[2022-08-24] MEDS: Spironolactone 25 MG TAB PO SCH (09:04)
[2022-08-24] MEDS: Folic Acid 1 MG TAB PO SCH (09:04)
[2022-08-24] MEDS: Aspirin 81 mg Enteric Coated Tablet PO SCH (09:04)
[2022-08-24] MEDS: metFORMIN 500 MG TAB PO SCH ×2 (09:04→20:57)
[2022-08-24] MEDS: Insulin Glargine 30 UNITS/0.3 ML VIAL SC SCH ×2 (09:05→20:57)
[2022-08-24] MEDS: Apixaban 5 MG TAB PO SCH (20:55)
[2022-08-24] MEDS: cloNIDine 0.1 MG TAB PO SCH (20:56)
[2022-08-24] MEDS: Rosuvastatin 20 MG TAB PO SCH (20:57)
[2022-08-24] MEDS: Melatonin 3 MG TAB PO PRN (20:57)
[2022-08-25] MEDS: Furosemide 40 MG/4 ML VIAL SLOW IVP SCH ×2 (05:55→15:16)
[2022-08-25 08:32] LABS: #Eosinphils 0.1 thou/uL (0.0-0.7); #Lymphocytes 1.3 thou/uL (1.20-3.40); #Monocytes 0.6 thou/uL (0.11-0.59); #Neutrophils 6.2 thou/uL (1.40-6.50); %Basophils 0.2 % (0.0-1.0); %Eosinophils 1.6 % (0.0-10.0); %Lymphocytes 16.1 % (21.0-51.0); %Monocytes 6.8 % (0.0-10.0); %Neutrophils 75.4 % (42.0-75.0); Hemoglobin 8.9 g/dL (12.0-16.0); Mean Corpuscular HGB CONC 33.3 g/dL (32.0-36.0); Mean Corpuscular Hemoglobin 30.1 pg (27.0-31.0); Mean Corpuscular Volume 90.5 fl (78.0-98.0); Mean Platelet Volume 8.2 fL (7.4-10.4); Platelet Count 229 10x3/uL (130-400); RBC Distribution Width 17.5 % (11.5-14.5); Red Blood Cell (RBC) Count 2.95 mill/uL (4.20-5.40); White Blood Cell (WBC) Count 8.2 10x3/uL (4.8-10.8)
[2022-08-25 09:26] LABS: Anion Gap 18 mmol/L (10-20); BUN (Urea Nitrogen) 22 mg/dL (9.8-20.1); Calc. Creatinine Clearance 67 mL/min (70-130); Calcium 9.6 mg/dL (7.8-10.44); Carbon Dioxide 21 mmol/L (23-31); Chloride 104 mmol/L (98-107); Estimated GFR 55; Glucose 95 mg/dL (83-110); Potassium 3.8 mmol/L (3.5-5.1); Sodium 139 mmol/L (136-145)
[2022-08-25] MEDS: Apixaban 5 MG TAB PO SCH ×2 (10:02→21:10)
[2022-08-25] MEDS: Aspirin 81 mg Enteric Coated Tablet PO SCH (10:02)
[2022-08-25] MEDS: Metolazone 5 MG TAB PO SCH (10:02)
[2022-08-25] MEDS: Cefdinir 300 MG CAP PO SCH ×2 (10:02→21:10)
[2022-08-25] MEDS: Amlodipine 10 MG TAB PO SCH (10:03)
[2022-08-25] MEDS: Flecainide 50 MG TAB PO SCH ×2 (10:03→21:10)
[2022-08-25] MEDS: Spironolactone 25 MG TAB PO SCH (10:03)
[2022-08-25] MEDS: Ferrous Sulfate 325 MG TAB PO SCH ×2 (10:03→16:32)
[2022-08-25] MEDS: metFORMIN 500 MG TAB PO SCH ×2 (10:03→21:11)
[2022-08-25] MEDS: Losartan 25 MG TAB PO SCH ×2 (10:03→21:11)
[2022-08-25] MEDS: Folic Acid 1 MG TAB PO SCH (10:03)
[2022-08-25] MEDS: Insulin Glargine 30 UNITS/0.3 ML VIAL SC SCH ×2 (10:04→21:11)
[2022-08-25] MEDS: cloNIDine 0.1 MG TAB PO SCH (21:10)
[2022-08-25] MEDS: Melatonin 3 MG TAB PO PRN (21:11)
[2022-08-25] MEDS: Rosuvastatin 20 MG TAB PO SCH (21:11)
[2022-08-26 05:41] LABS: #Eosinphils 0.2 thou/uL (0.0-0.7); #Lymphocytes 2.2 thou/uL (1.20-3.40); #Monocytes 0.7 thou/uL (0.11-0.59); #Neutrophils 5.1 thou/uL (1.40-6.50); %Basophils 0.5 % (0.0-1.0); %Eosinophils 2.1 % (0.0-10.0); %Lymphocytes 26.5 % (21.0-51.0); %Monocytes 8.6 % (0.0-10.0); %Neutrophils 62.3 % (42.0-75.0); Hemoglobin 8.5 g/dL (12.0-16.0); Mean Corpuscular Hemoglobin 29.8 pg (27.0-31.0); Mean Corpuscular Volume 90.4 fl (78.0-98.0); Mean Platelet Volume 8.4 fL (7.4-10.4); Platelet Count 242 10x3/uL (130-400); RBC Distribution Width 17.5 % (11.5-14.5); Red Blood Cell (RBC) Count 2.84 mill/uL (4.20-5.40); White Blood Cell (WBC) Count 8.1 10x3/uL (4.8-10.8)
[2022-08-26 05:43] LABS: Anion Gap 15 mmol/L (10-20); BUN (Urea Nitrogen) 22 mg/dL (9.8-20.1); Calc. Creatinine Clearance 78 mL/min (70-130); Calcium 9.2 mg/dL (7.8-10.44); Carbon Dioxide 24 mmol/L (23-31); Chloride 103 mmol/L (98-107); Estimated GFR 66; Potassium 3.6 mmol/L (3.5-5.1); Sodium 138 mmol/L (136-145)
[2022-08-26 05:48] LABS: Glucose 40 mg/dL (83-110)
[2022-08-26] MEDS: Furosemide 40 MG/4 ML VIAL SLOW IVP SCH ×2 (06:00→14:13)
[2022-08-26] MEDS: Metolazone 5 MG TAB PO SCH (08:05)
[2022-08-26] MEDS: Apixaban 5 MG TAB PO SCH ×2 (08:05→21:31)
[2022-08-26] MEDS: Flecainide 50 MG TAB PO SCH ×2 (08:06→21:31)
[2022-08-26] MEDS: Aspirin 81 mg Enteric Coated Tablet PO SCH (08:06)
[2022-08-26] MEDS: Folic Acid 1 MG TAB PO SCH (08:06)
[2022-08-26] MEDS: Spironolactone 25 MG TAB PO SCH (08:06)
[2022-08-26] MEDS: Amlodipine 10 MG TAB PO SCH (08:06)
[2022-08-26] MEDS: Cefdinir 300 MG CAP PO SCH ×2 (08:06→21:31)
[2022-08-26] MEDS: Ferrous Sulfate 325 MG TAB PO SCH ×2 (08:06→18:12)
[2022-08-26] MEDS: Losartan 25 MG TAB PO SCH ×2 (08:06→21:32)
[2022-08-26] MEDS: HumaLOG 300 UNITS/3 ML VIAL SC PRN ×2 (18:12→21:40)
[2022-08-26] MEDS: cloNIDine 0.1 MG TAB PO SCH (21:31)
[2022-08-26] MEDS: Melatonin 3 MG TAB PO PRN (21:32)
[2022-08-26] MEDS: Rosuvastatin 20 MG TAB PO SCH (21:32)
[2022-08-26] MEDS: Acetaminophen 325 MG TAB PO PRN (21:32)
[2022-08-27] MEDS: Furosemide 40 MG/4 ML VIAL SLOW IVP SCH ×2 (06:12→13:58)
[2022-08-27 07:41] LABS: Anion Gap 16 mmol/L (10-20); BUN (Urea Nitrogen) 23 mg/dL (9.8-20.1); Calc. Creatinine Clearance 66 mL/min (70-130); Carbon Dioxide 26 mmol/L (23-31); Chloride 98 mmol/L (98-107); Estimated GFR 54; Glucose 105 mg/dL (83-110); Potassium 3.8 mmol/L (3.5-5.1); Sodium 136 mmol/L (136-145)
[2022-08-27] MEDS: Ferrous Sulfate 325 MG TAB PO SCH (10:04)
[2022-08-27] MEDS: Metolazone 5 MG TAB PO SCH (10:04)
[2022-08-27] MEDS: Flecainide 50 MG TAB PO SCH (10:04)
[2022-08-27] MEDS: Apixaban 5 MG TAB PO SCH (10:05)
[2022-08-27] MEDS: Cefdinir 300 MG CAP PO SCH (10:05)
[2022-08-27] MEDS: Amlodipine 10 MG TAB PO SCH (10:05)
[2022-08-27] MEDS: Losartan 25 MG TAB PO SCH (10:05)
[2022-08-27] MEDS: Aspirin 81 mg Enteric Coated Tablet PO SCH (10:05)
[2022-08-27] MEDS: Folic Acid 1 MG TAB PO SCH (10:05)
[2022-08-27] MEDS: Spironolactone 25 MG TAB PO SCH (10:05)
[2022-08-27 12:18] VITALS: BP 142/65; TEMP 97.5
== END 2022-08-27 15:41 | disposition home health service (06) | DRG 291 ==
LOC: ERS 09:25 → SUATTDRO 09:25 → ERHOLD 14:36 → 2SW 16:17 → CCU 08-12 06:57 → OBSVTOIN 08-12 08:57 → 2NO 08-12 20:20
PROVIDERS: ADMIT Internal Medicine; ATTEND Internal Medicine
DX: I11.0 Hypertensive heart disease with heart failure (principal); I50.43 Acute on chronic combined systolic (congestive) and diastolic (congestive) heart failure; J96.01 Acute respiratory failure with hypoxia; J18.9 Pneumonia, unspecified organism; I82.B12 Acute embolism and thrombosis of left subclavian vein; D62 Acute posthemorrhagic anemia; N17.9 Acute kidney failure, unspecified; N39.0 Urinary tract infection, site not specified; D68.32 Hemorrhagic disorder due to extrinsic circulating anticoagulants; I16.1 Hypertensive emergency; R42 Dizziness and giddiness; E78.5 Hyperlipidemia, unspecified; I48.0 Paroxysmal atrial fibrillation; E83.42 Hypomagnesemia; E11.51 Type 2 diabetes mellitus with diabetic peripheral angiopathy without gangrene; E66.9 Obesity, unspecified; E11.649 Type 2 diabetes mellitus with hypoglycemia without coma; B96.89 Other specified bacterial agents as the cause of diseases classified elsewhere; T45.515A Adverse effect of anticoagulants, initial encounter; R31.0 Gross hematuria; Z68.35 Body mass index [BMI] 35.0-35.9, adult; Z79.4 Long term (current) use of insulin; Z85.3 Personal history of malignant neoplasm of breast; Z92.21 Personal history of antineoplastic chemotherapy; Z92.3 Personal history of irradiation; Z79.82 Long term (current) use of aspirin; Z79.84 Long term (current) use of oral hypoglycemic drugs; Z79.01 Long term (current) use of anticoagulants; Z95.0 Presence of cardiac pacemaker; Z90.710 Acquired absence of both cervix and uterus; Z90.49 Acquired absence of other specified parts of digestive tract; Z85.038 Personal history of other malignant neoplasm of large intestine; Z86.73 Personal history of transient ischemic attack (TIA), and cerebral infarction without residual deficits
CPT/HCPCS: 36415; 36416; 71045; 71260; 74176; 76856; 80048; 80053; 81001; 82728; 83010; 83540; 83550; 83735; 83880; 84145; 84484; 85014; 85018; 85025; 85046; 85049; 87077; 87086; 87186; 93005; 93923; 96374; 96375; J0360; J0692; J0696; J1650; J1815; J1940; J2405; J3475; J3480; J3490; J7050; P9047; Q9967

== ENCOUNTER 2022-11-18 08:00 | Observation (INO) | payer MEDICARE ==
[2022-11-18] MEDS ORDERED: Dextrose 50% Abboject 50 ML SYRINGE ONE (08:13)
[2022-11-18 08:44] LABS: #Basophils 0.1 thou/uL (0.0-0.2); #Eosinphils 0.1 thou/uL (0.0-0.7); #Monocytes 0.7 thou/uL (0.11-0.59); #Neutrophils 6.6 thou/uL (1.40-6.50); %Basophils 0.5 % (0.0-1.0); %Eosinophils 0.7 % (0.0-10.0); %Lymphocytes 25.8 % (21.0-51.0); %Monocytes 7.2 % (0.0-10.0); %Neutrophils 65.3 % (42.0-75.0); Hemoglobin 9.3 g/dL (12.0-16.0); Mean Corpuscular HGB CONC 31.6 g/dL (32.0-36.0); Mean Corpuscular Hemoglobin 28.4 pg (27.0-31.0); Mean Corpuscular Volume 89.6 fl (78.0-98.0); Mean Platelet Volume 9.8 fL (7.4-10.4); Platelet Count 272 10x3/uL (130-400); Red Blood Cell (RBC) Count 3.28 mill/uL (4.20-5.40)
[2022-11-18 09:04] LABS: ALT (SGPT) 13 U/L (8-55); AST (SGOT) 12 U/L (5-34); Albumin 3.9 g/dL (3.4-4.8); Alkaline Phosphatase 88 U/L (40-110); Anion Gap 17 mmol/L (10-20); BUN (Urea Nitrogen) 42 mg/dL (9.8-20.1); Bilirubin, Total 0.4 mg/dL (0.2-1.2); Calc. Creatinine Clearance 0 mL/min (70-130); Calcium 9.3 mg/dL (7.8-10.44); Carbon Dioxide 20 mmol/L (23-31); Chloride 105 mmol/L (98-107); Estimated GFR 26; Globulin 3.3 g/dL (2.4-3.5); Glucose 250 mg/dL (83-110); Potassium 4.6 mmol/L (3.5-5.1); Protein, Total 7.2 g/dL (5.8-8.1); Sodium 137 mmol/L (136-145)
[2022-11-18 09:06] LABS: Acetaminophen Less than 10 mcg/mL (10.0-30.0); Alcohol Less than 10.0 mg/dL (Less than 10); Lipase 25 U/L (8-78); Magnesium 1.7 mg/dL (1.6-2.6); Salicylate Less than 8.0 mg/dL (15.0-30.0)
[2022-11-18 09:19] LABS: Bacteria/HPF 4+ HPF (None Seen); Bilirubin Negative (Negative); Blood, Urine 2+ (Negative); CAUTI Indications for Culture Alt mental st,lethar; Clarity Extra Turbid (Clear); Glucose, Urine (Dipstick) Normal (Negative); Ketone, Urine Negative (Negative); Leukocyte 250 Leu/uL (Negative); Nitrite Negative (Negative); Protein, Urine (Dipstick) 200 mg/dL (Neg-Trace); Specific Gravity, Urine 1.014 (1.002-1.036); Urobilinogen Normal mg/dL (Less than 2)
[2022-11-18 09:21] LABS: Amphetamine Not Detected (NotDetected); Barbiturates Screen Not Detected (NotDetected); Benzodiazepine Screen Not Detected (NotDetected); Cocaine Metabolite Screen Not Detected (NotDetected); Methadone Not Detected (NotDetected); Methamphetamine Not Detected (NotDetected); Opiate Screen Not Detected (NotDetected); Oxycodone Screen Not Detected (NotDetected); Phencyclidine (PCP) Not Detected (NotDetected); THC/Cannabinoid Screen Not Detected (NotDetected); Tricyclic Screen Not Detected (NotDetected)
[2022-11-18 09:25] LABS: Urine Culture Reflex Yes Yes
[2022-11-18] MEDS ORDERED: cefTRIAXone (ROCEPHIN) 2 GM VIAL ONE (09:36)
[2022-11-18] MEDS ORDERED: Aspirin Chewable 81 MG TAB ONE (10:16)
[2022-11-18] MEDS ORDERED: Glucagon 1 MG/ML KIT IM PRN (11:29)
[2022-11-18] MEDS ORDERED: Ondansetron PF 4 MG/2 ML Vial IVP PRN (11:29)
[2022-11-18] MEDS ORDERED: Dextrose 50% Abboject 50 ML SYRINGE SLOW IVP PRN (11:29)
[2022-11-18] MEDS ORDERED: Senokot S 8.6-50 MG TAB PO PRN (11:29)
[2022-11-18] MEDS ORDERED: Ondansetron ODT 4 MG TAB PO PRN (11:29)
[2022-11-18] MEDS ORDERED: Dextrose 5% in Water 1,000 ML IV PRN (11:29)
[2022-11-18 12:12] LABS: Troponin I 0.014 ng/mL (< 0.028)
[2022-11-18] MEDS: Sodium Chloride 0.9% 1,000 ML IV SCH (12:13)
[2022-11-18 12:18] VITALS: BMI 34.0
[2022-11-18] MEDS: Acetaminophen 325 MG TAB PO PRN ×2 (12:20→21:33)
[2022-11-18 15:27] LABS: Troponin I Less than 0.010 ng/mL (< 0.028)
[2022-11-18] MEDS: Apixaban 5 MG TAB PO SCH (20:21)
[2022-11-18] MEDS: Carvedilol 3.125 MG TAB PO SCH (20:21)
[2022-11-18] MEDS: Flecainide 50 MG TAB PO SCH (20:21)
[2022-11-18] MEDS ORDERED: Rosuvastatin 20 MG TAB PO SCH (21:00)
[2022-11-18] MEDS ORDERED: Melatonin 3 MG TAB PO PRN (23:47)
[2022-11-19] MEDS: Sodium Chloride 0.9% 1,000 ML IV SCH (01:29)
[2022-11-19] MEDS: Flecainide 50 MG TAB PO SCH (07:42)
[2022-11-19] MEDS ORDERED: Ferrous Sulfate 325 MG TAB PO SCH (08:00)
[2022-11-19] MEDS ORDERED: cefTRIAXone\\ROCEPHIN 1 GM in Sodium Chloride 0.9% 100 ML IVPB SCH (09:00)
[2022-11-19] MEDS ORDERED: Folic Acid 1 MG TAB PO SCH (09:00)
[2022-11-19] MEDS: Apixaban 5 MG TAB PO SCH (09:10)
[2022-11-19] MEDS: Carvedilol 3.125 MG TAB PO SCH (09:10)
[2022-11-19] MEDS ORDERED: Alogliptin 6.25 MG TAB PO SCH (09:15)
[2022-11-19] MEDS ORDERED: metFORMIN 500 MG TAB PO SCH (09:15)
[2022-11-19] MEDS: Acetaminophen 325 MG TAB PO PRN (09:24)
[2022-11-19 10:56] LABS: Sodium 135 mmol/L (136-145)
[2022-11-19 10:57] LABS: Anion Gap 12 mmol/L (10-20); BUN (Urea Nitrogen) 28 mg/dL (9.8-20.1); Calc. Creatinine Clearance 45 mL/min (70-130); Calcium 9.4 mg/dL (7.6-10.4); Carbon Dioxide 19 mmol/L (23-31); Chloride 108 mmol/L (98-107); Estimated GFR 37; Glucose 237 mg/dL (83-110); Potassium 4.2 mmol/L (3.5-5.1)
[2022-11-19 12:26] VITALS: BP 154/70; TEMP 98.1
[2022-11-20] MEDS ORDERED: metFORMIN 500 MG TAB PO SCH (09:00)
[2022-11-20] MEDS ORDERED: Amlodipine 10 MG TAB PO SCH (09:00)
[2022-11-20] MEDS ORDERED: Alogliptin 6.25 MG TAB PO SCH (09:00)
== END 2022-11-19 16:37 | disposition home or self-care (01) ==
LOC: ERS 08:00 → T4-B 10:19
PROVIDERS: ADMIT Internal Medicine; ATTEND Internal Medicine
DX: E11.649 Type 2 diabetes mellitus with hypoglycemia without coma (principal); N17.9 Acute kidney failure, unspecified; N39.0 Urinary tract infection, site not specified; I48.91 Unspecified atrial fibrillation; I11.0 Hypertensive heart disease with heart failure; I50.20 Unspecified systolic (congestive) heart failure; I25.2 Old myocardial infarction; Z79.82 Long term (current) use of aspirin; Z86.73 Personal history of transient ischemic attack (TIA), and cerebral infarction without residual deficits; Z79.01 Long term (current) use of anticoagulants; Z79.4 Long term (current) use of insulin; Z79.84 Long term (current) use of oral hypoglycemic drugs; Z79.899 Other long term (current) drug therapy; Z90.710 Acquired absence of both cervix and uterus
CPT/HCPCS: 70450; 80048; 80306; 80307; 81001; 82962 ×2; 83690; 83735; 84439; 84484 ×2; 87086; 93005; 96365; 96375; 96376; 97535; 99285; G0378 ×3; 36415; 36416; 80053; 84443; 85025; J0696; J3490; J7050; J7999

== ENCOUNTER 2022-11-25 08:08 | Outpatient (CLI) | payer MEDICARE | END 2022-11-25 08:09 | disposition home or self-care (01) | LOC: BICMAMMO 08:08 | PROVIDERS: ATTEND Internal Medicine | DX: N63.11 Unspecified lump in the right breast, upper outer quadrant (principal); N64.89 Other specified disorders of breast | CPT/HCPCS: 76642; 77066; G0279 ==

== ENCOUNTER 2022-12-24 16:17 | Inpatient (IN) | payer MEDICARE ==
[2022-12-24 18:32] LABS: Actual Bicarbonate (HCO3v) 21.1 mEq/L (22-28); Base Excess -2.2 mEq/L (-2.0 to +3.0); Calcium, Ionized (venous) 1.12 mmol/L (1.16-1.32); Chloride (VBG) 98 mmol/L (98-106); Hematocrit-VBG 37 % (36.0-47.0); Hemoglobin (Hb) 12.7 g/dL (11.7-16.1); Potassium (VBG) 3.99 mmol/L (3.70-5.30); Sodium 133.2 mmol/L (133-146)
[2022-12-24 18:35] LABS: Bacteria/HPF None Seen HPF (None Seen); Bilirubin Negative (Negative); Blood, Urine 1+ (Negative); CAUTI Indications for Culture Pelvic or flank pain; Clarity Clear (Clear); Glucose, Urine (Dipstick) Greater than 1000 mg/dL (Negative); Ketone, Urine Negative (Negative); Leukocyte Negative Leu/uL (Negative); Nitrite Negative (Negative); Protein, Urine (Dipstick) 200 mg/dL (Neg-Trace); Specific Gravity, Urine 1.016 (1.002-1.036); Squamous Epithelial 0-3 HPF (0-3); Urobilinogen Normal mg/dL (Less than 2); WBC/HPF 0-3 HPF (0-3)
[2022-12-24 18:36] LABS: #Eosinphils 0.1 thou/uL (0.0-0.7); #Monocytes 0.6 thou/uL (0.11-0.59); #Neutrophils 7.4 thou/uL (1.40-6.50); %Basophils 0.4 % (0.0-1.0); %Eosinophils 0.8 % (0.0-10.0); %Lymphocytes 22.2 % (21.0-51.0); %Monocytes 5.8 % (0.0-10.0); %Neutrophils 70.4 % (42.0-75.0); Hematocrit 34.2 % (36.0-47.0); Hemoglobin 11.5 g/dL (12.0-16.0); Mean Corpuscular HGB CONC 33.6 g/dL (32.0-36.0); Mean Corpuscular Hemoglobin 28.5 pg (27.0-31.0); Mean Corpuscular Volume 84.9 fl (78.0-98.0); Mean Platelet Volume 9.8 fL (7.4-10.4); Platelet Count 276 10x3/uL (130-400); RBC Distribution Width 13.9 % (11.5-14.5); Red Blood Cell (RBC) Count 4.03 mill/uL (4.20-5.40); White Blood Cell (WBC) Count 10.5 10x3/uL (4.8-10.8)
[2022-12-24 18:41] LABS: Urine Culture Reflex No No
[2022-12-24 19:20] LABS: Troponin I Less than 0.010 ng/mL (< 0.028)
[2022-12-24 19:29] LABS: ALT (SGPT) 14 U/L (8-55); AST (SGOT) 13 U/L (5-34); Albumin 4.2 g/dL (3.4-4.8); Alkaline Phosphatase 125 U/L (40-110); Anion Gap 16 mmol/L (10-20); BUN (Urea Nitrogen) 32 mg/dL (9.8-20.1); Bilirubin, Total 0.4 mg/dL (0.2-1.2); Calc. Creatinine Clearance 0 mL/min (70-130); Calcium 10.1 mg/dL (7.8-10.44); Carbon Dioxide 21 mmol/L (23-31); Chloride 97 mmol/L (98-107); Estimated GFR 30; Globulin 4.5 g/dL (2.4-3.5); Lipase 12 U/L (8-78); Magnesium 1.9 mg/dL (1.6-2.6); Potassium 3.8 mmol/L (3.5-5.1); Protein, Total 8.7 g/dL (5.8-8.1); Sodium 130 mmol/L (136-145)
[2022-12-24 19:35] LABS: Glucose 501 mg/dL (83-110)
[2022-12-24] MEDS ORDERED: Aspirin Chewable 81 MG TAB ONE (20:34)
[2022-12-24] MEDS ORDERED: Dextrose 5% in Water 1,000 ML IV PRN (21:59)
[2022-12-24] MEDS ORDERED: Dextrose 50% Abboject 50 ML SYRINGE SLOW IVP PRN (21:59)
[2022-12-24] MEDS ORDERED: HumaLOG 300 UNITS/3 ML VIAL SC PRN (21:59)
[2022-12-24] MEDS ORDERED: Glucagon 1 MG/ML KIT IM PRN (21:59)
[2022-12-24] MEDS ORDERED: Sodium Chloride 0.9% 1,000 ML IV SCH (23:00)
[2022-12-25 01:03] VITALS: BMI 34.9
[2022-12-25 05:00] LABS: #Eosinphils 0.1 thou/uL (0.0-0.7); #Monocytes 0.5 thou/uL (0.11-0.59); #Neutrophils 4.7 thou/uL (1.40-6.50); %Basophils 0.4 % (0.0-1.0); %Eosinophils 1.3 % (0.0-10.0); %Lymphocytes 28.1 % (21.0-51.0); %Monocytes 7.2 % (0.0-10.0); %Neutrophils 62.7 % (42.0-75.0); Hemoglobin 9.3 g/dL (12.0-16.0); Mean Corpuscular HGB CONC 33.2 g/dL (32.0-36.0); Mean Corpuscular Hemoglobin 28.8 pg (27.0-31.0); Mean Corpuscular Volume 86.7 fl (78.0-98.0); Mean Platelet Volume 9.9 fL (7.4-10.4); Platelet Count 217 10x3/uL (130-400); RBC Distribution Width 14.1 % (11.5-14.5); Red Blood Cell (RBC) Count 3.23 mill/uL (4.20-5.40); White Blood Cell (WBC) Count 7.5 10x3/uL (4.8-10.8)
[2022-12-25 05:30] LABS: Anion Gap 11 mmol/L (10-20); BUN (Urea Nitrogen) 26 mg/dL (9.8-20.1); Calc. Creatinine Clearance 61 mL/min (70-130); Calcium 8.7 mg/dL (7.8-10.44); Carbon Dioxide 21 mmol/L (23-31); Chloride 105 mmol/L (98-107); Estimated GFR 51; Glucose 210 mg/dL (83-110); Potassium 3.1 mmol/L (3.5-5.1); Sodium 134 mmol/L (136-145)
[2022-12-25] MEDS: Nitrofurantoin Monohyd/M-Cryst 100 MG CAP PO SCH ×2 (09:15→22:36)
[2022-12-25] MEDS: Apixaban 5 MG TAB PO SCH ×2 (09:15→22:36)
[2022-12-25] MEDS: Ferrous Sulfate 325 MG TAB PO SCH (09:15)
[2022-12-25] MEDS ORDERED: Potassium Chloride 20 MEQ TAB PO SCH (09:30)
[2022-12-25] MEDS ORDERED: Acetaminophen/Codeine 30-300mg Tablet PO PRN (09:38)
[2022-12-25] MEDS ORDERED: Acetaminophen/Codeine 30-300mg Tablet PO SCH (09:45)
[2022-12-25] MEDS ORDERED: Lidocaine 4% Patch TD SCH (09:45)
[2022-12-25 11:03] LABS: Hemoglobin A1c 9.5 % (4.0-6.0)
[2022-12-25] MEDS: HumaLOG 300 UNITS/3 ML VIAL SC PRN ×2 (12:51→17:20)
[2022-12-25] MEDS ORDERED: Carvedilol 3.125 MG TAB PO SCH (12:58)
[2022-12-25] MEDS ORDERED: Sacubitril 24MG/Valsartan 26 MG TAB PO SCH (12:59)
[2022-12-25] MEDS ORDERED: Amlodipine 10 MG TAB PO SCH (13:00)
[2022-12-25] MEDS ORDERED: Ondansetron PF 4 MG/2 ML Vial IVP PRN (18:11)
[2022-12-25] MEDS ORDERED: cloNIDine 0.1 MG TAB PO SCH (21:00)
[2022-12-25] MEDS ORDERED: Transdermal Patch Removal TOP SCH (21:00)
[2022-12-25] MEDS ORDERED: Rosuvastatin 20 MG TAB PO SCH (21:00)
[2022-12-25] MEDS: Insulin Glargine 30 UNITS/0.3 ML VIAL SC SCH (22:36)
[2022-12-25] MEDS: Sacubitril 24MG/Valsartan 26 MG TAB PO SCH (22:36)
[2022-12-25] MEDS: Carvedilol 3.125 MG TAB PO SCH (22:36)
[2022-12-25] MEDS: Flecainide 50 MG TAB PO SCH (22:37)
[2022-12-26] MEDS: Carvedilol 3.125 MG TAB PO SCH (07:24)
[2022-12-26] MEDS: Sacubitril 24MG/Valsartan 26 MG TAB PO SCH (07:24)
[2022-12-26] MEDS: HumaLOG 300 UNITS/3 ML VIAL SC PRN ×2 (07:25→13:07)
[2022-12-26] MEDS ORDERED: Folic Acid 1 MG TAB PO SCH (09:00)
[2022-12-26] MEDS ORDERED: Amlodipine 10 MG TAB PO SCH (09:00)
[2022-12-26] MEDS ORDERED: Lidocaine 4% Patch TD SCH (09:00)
[2022-12-26] MEDS: Nitrofurantoin Monohyd/M-Cryst 100 MG CAP PO SCH (09:25)
[2022-12-26] MEDS: Flecainide 50 MG TAB PO SCH (09:25)
[2022-12-26] MEDS: Ferrous Sulfate 325 MG TAB PO SCH (09:26)
[2022-12-26] MEDS: Apixaban 5 MG TAB PO SCH (09:26)
[2022-12-26] MEDS ORDERED: Potassium Chloride 20 MEQ TAB PO SCH (09:30)
[2022-12-26] MEDS ORDERED: Insulin Glargine 30 UNITS/0.3 ML VIAL SC SCH ×2 (09:45→21:00)
[2022-12-26] MEDS: Insulin Glargine 30 UNITS/0.3 ML VIAL SC SCH (10:13)
[2022-12-26 15:22] VITALS: BP 156/83; TEMP 97.8
== END 2022-12-26 17:15 | disposition home or self-care (01) | DRG 638 ==
LOC: ERS 16:17 → 2NO 21:38 → OBSVTOIN 12-25 16:52
PROVIDERS: ADMIT Student in an Organized Health Care Education/Training Program; ATTEND Family Medicine
PROC: 4A043R1 Measurement of Venous Saturation, Peripheral, Percutaneous Approach (ICD-10-PCS; principal; 2022-12-24)
DX: E11.65 Type 2 diabetes mellitus with hyperglycemia (principal); I50.32 Chronic diastolic (congestive) heart failure; N39.0 Urinary tract infection, site not specified; I69.954 Hemiplegia and hemiparesis following unspecified cerebrovascular disease affecting left non-dominant side; N17.9 Acute kidney failure, unspecified; E11.649 Type 2 diabetes mellitus with hypoglycemia without coma; I11.0 Hypertensive heart disease with heart failure; E78.5 Hyperlipidemia, unspecified; I48.0 Paroxysmal atrial fibrillation; Z79.4 Long term (current) use of insulin; E87.6 Hypokalemia; E86.9 Volume depletion, unspecified; Z82.49 Family history of ischemic heart disease and other diseases of the circulatory system; I25.2 Old myocardial infarction; Z90.710 Acquired absence of both cervix and uterus; Z98.890 Other specified postprocedural states; Z79.899 Other long term (current) drug therapy
CPT/HCPCS: 36415; 36416; 70450; 70551; 80048; 80053; 81001; 82010; 82805; 83036; 83690; 83735; 84484; 85025; 87086; 93005; 96360; 96361; J1815; J7050

== ENCOUNTER → 2023-01-13 | Day surgery (SDC) | payer MEDICARE ==
[2023-01-13 08:14] LABS: PTT 29.4 sec (22.9-36.1); Prothrombin Time 13.1 sec (12.0-14.7)
[2023-01-13 08:38] VITALS: BP 173/74; TEMP 98.8
== END ==
LOC: CT 07:26
PROVIDERS: ATTEND Internal Medicine
DX: C34.11 Malignant neoplasm of upper lobe, right bronchus or lung (principal); I11.0 Hypertensive heart disease with heart failure; I50.20 Unspecified systolic (congestive) heart failure; E11.649 Type 2 diabetes mellitus with hypoglycemia without coma; N17.9 Acute kidney failure, unspecified; N39.0 Urinary tract infection, site not specified; I48.91 Unspecified atrial fibrillation; Z86.73 Personal history of transient ischemic attack (TIA), and cerebral infarction without residual deficits; Z90.710 Acquired absence of both cervix and uterus; Z95.0 Presence of cardiac pacemaker; Z79.84 Long term (current) use of oral hypoglycemic drugs; Z79.899 Other long term (current) drug therapy; Z79.01 Long term (current) use of anticoagulants; Z79.4 Long term (current) use of insulin
CPT/HCPCS: 32408; 36416; 71045; 77012; 85610; 85730; 88305; 88333; 88334; 88341; 88342

== ENCOUNTER 2023-04-30 21:31 | Inpatient (IN) | payer MEDICARE, OTHER ==
[~2023-04-30 21:31] MED LIST changes: -Iopamidol-370 76% 500 ML 1 ML ONE; +Iopamidol-370 76% 500 ML MDV (1 ML CHARGE) ONE
[2023-04-30 22:34] LABS: Actual Bicarbonate (HCO3v) 23.2 mEq/L (22-28); Base Excess -1.7 mEq/L (-2.0 to +3.0); Chloride (VBG) 93 mmol/L (98-106); Hematocrit-VBG 31 % (36.0-47.0); Hemoglobin (Hb) 10.5 g/dL (11.7-16.1); Potassium (VBG) 3.59 mmol/L (3.70-5.30); Sodium 133 mmol/L (133-146); pH (venous) 7.386 (7.32-7.43)
[2023-04-30 22:40] LABS: #Monocytes 0.5 thou/uL (0.11-0.59); #Neutrophils 4.2 thou/uL (1.40-6.50); %Basophils 0.3 % (0.0-1.0); %Eosinophils 0.5 % (0.0-10.0); %Lymphocytes 17.5 % (21.0-51.0); %Monocytes 8.7 % (0.0-10.0); %Neutrophils 72.7 % (42.0-75.0); Hematocrit 28.3 % (36.0-47.0); Hemoglobin 9.7 g/dL (12.0-16.0); Mean Corpuscular HGB CONC 34.3 g/dL (32.0-36.0); Mean Corpuscular Hemoglobin 31.1 pg (27.0-31.0); Mean Corpuscular Volume 90.7 fl (78.0-98.0); Mean Platelet Volume 10.1 fL (7.4-10.4); Platelet Count 242 10x3/uL (130-400); RBC Distribution Width 12.5 % (11.5-14.5); Red Blood Cell (RBC) Count 3.12 mill/uL (4.20-5.40); White Blood Cell (WBC) Count 5.7 10x3/uL (4.8-10.8)
[2023-04-30 22:53] LABS: Bacteria/HPF 4+ HPF (None Seen); Bilirubin Negative (Negative); Blood, Urine 3+ (Negative); CAUTI Indications for Culture Alt mental st,lethar; Clarity Turbid (Clear); Glucose, Urine (Dipstick) Greater than 1000 mg/dL (Negative); Ketone, Urine Negative (Negative); Leukocyte 25 Leu/uL (Negative); Nitrite Negative (Negative); Protein, Urine (Dipstick) 50 mg/dL (Neg-Trace); Specific Gravity, Urine 1.015 (1.002-1.036); Squamous Epithelial 0-3 HPF (0-3); Urobilinogen Normal mg/dL (Less than 2); WBC/HPF 0-3 HPF (0-3); pH, Urine 5.5 (5.0-9.0)
[2023-04-30 22:57] LABS: Urine Culture Reflex No No
[2023-04-30 23:03] LABS: ALT (SGPT) 9 U/L (8-55); AST (SGOT) 9 U/L (5-34); Alkaline Phosphatase 92 U/L (40-110); Anion Gap 13 mmol/L (10-20); BUN (Urea Nitrogen) 25 mg/dL (9.8-20.1); Bilirubin, Total 0.2 mg/dL (0.2-1.2); Calc. Creatinine Clearance 0 mL/min (70-130); Carbon Dioxide 22 mmol/L (23-31); Chloride 97 mmol/L (98-107); Estimated GFR 36; Globulin 3.2 g/dL (2.4-3.5); Potassium 3.5 mmol/L (3.5-5.1); Protein, Total 6.2 g/dL (5.8-8.1); Sodium 128 mmol/L (136-145)
[2023-04-30 23:10] LABS: Critical Call Chemistry ASAY@2310; Glucose 629 mg/dL (83-110)
[2023-04-30] MEDS ORDERED: cefTRIAXone (ROCEPHIN) 1 GM VIAL ONE (23:19)
[2023-04-30] MEDS ORDERED: Sodium Chloride 0.9% 100 ML ONE (23:19)
[2023-04-30] MEDS ORDERED: Sodium Chloride 0.9% 1,000 ML IV SCH (23:45)
[2023-04-30] MEDS ORDERED: HUMULIN R 100 UNITS in Sodium Chloride 0.9% 100 ML IVPB SCH (23:45)
[2023-05-01] MEDS ORDERED: Acetaminophen 500 MG TAB ONE (00:06)
[2023-05-01 00:41] VITALS: BMI 32.9
[2023-05-01] MEDS ORDERED: Dextrose 5% in Water 1,000 ML IV PRN (01:05)
[2023-05-01] MEDS ORDERED: Dextrose 50% Abboject 50 ML SYRINGE SLOW IVP PRN (01:05)
[2023-05-01] MEDS ORDERED: Glucagon 1 MG/ML KIT IM PRN (01:05)
[2023-05-01] MEDS ORDERED: HumaLOG 300 UNITS/3 ML VIAL SC PRN (01:05)
[2023-05-01] MEDS ORDERED: Insulin Regular 300 UNITS/3 ML VIAL IVP SCH (01:15)
[2023-05-01] MEDS ORDERED: Insulin Regular 300 UNITS/3 ML VIAL ONE (01:38)
[2023-05-01] MEDS ORDERED: Melatonin 3 MG TAB PO PRN (02:54)
[2023-05-01] MEDS: HumaLOG 300 UNITS/3 ML VIAL SC PRN ×3 (08:48→18:07)
[2023-05-01] MEDS ORDERED: Amlodipine 5 MG TAB ONE (09:00)
[2023-05-01] MEDS ORDERED: Sacubitril 49 MG/Valsartan 51 MG TABLET ONE (09:00)
[2023-05-01] MEDS ORDERED: Insulin Glargine 30 UNITS/0.3 ML VIAL SC SCH (09:00)
[2023-05-01] MEDS ORDERED: Furosemide 40 MG TAB ONE (09:00)
[2023-05-01] MEDS ORDERED: Apixaban 5 MG TAB ONE (09:01)
[2023-05-01] MEDS ORDERED: HumaLOG 300 UNITS/3 ML VIAL ONE (09:01)
[2023-05-01] MEDS ORDERED: Carvedilol 6.25 MG TAB ONE (09:01)
[2023-05-01] MEDS ORDERED: cefTRIAXone (ROCEPHIN) 1 GM VIAL ONE (09:02)
[2023-05-01] MEDS ORDERED: Losartan 25 MG TAB ONE (09:37)
[2023-05-01] MEDS: Amlodipine 10 MG TAB PO SCH (10:19)
[2023-05-01] MEDS: Carvedilol 3.125 MG TAB PO SCH ×2 (10:20→20:56)
[2023-05-01] MEDS: Losartan 25 MG TAB PO SCH ×2 (10:20→20:55)
[2023-05-01] MEDS: Isosorbide Mononitrate 60 MG ER.TAB PO SCH (10:20)
[2023-05-01] MEDS: Apixaban 5 MG TAB PO SCH ×2 (10:20→20:56)
[2023-05-01] MEDS: Sacubitril 24MG/Valsartan 26 MG TAB PO SCH ×2 (10:20→20:55)
[2023-05-01] MEDS: Furosemide 40 MG TAB PO SCH ×2 (10:20→20:56)
[2023-05-01] MEDS: Insulin Glargine 30 UNITS/0.3 ML VIAL SC SCH ×2 (10:20→20:56)
[2023-05-01] MEDS: Flecainide 50 MG TAB PO SCH ×2 (10:20→20:56)
[2023-05-01] MEDS: Spironolactone 25 MG TAB PO SCH (10:21)
[2023-05-01] MEDS: cefTRIAXone\\ROCEPHIN 1 GM in Sodium Chloride 0.9% 100 ML IVPB SCH (10:21)
[2023-05-01] MEDS ORDERED: Acetaminophen 325 MG TAB PO PRN (14:11)
[2023-05-01] MEDS ORDERED: Ondansetron ODT 4 MG TAB PO PRN (14:11)
[2023-05-01] MEDS ORDERED: Rosuvastatin 20 MG TAB PO SCH (21:00)
[2023-05-02 05:49] LABS: #Eosinphils 0.1 thou/uL (0.0-0.7); #Monocytes 0.5 thou/uL (0.11-0.59); #Neutrophils 3.8 thou/uL (1.40-6.50); %Basophils 0.4 % (0.0-1.0); %Eosinophils 0.9 % (0.0-10.0); %Lymphocytes 18.5 % (21.0-51.0); %Monocytes 9.7 % (0.0-10.0); %Neutrophils 70.3 % (42.0-75.0); Hematocrit 28.9 % (36.0-47.0); Hemoglobin 9.8 g/dL (12.0-16.0); Mean Corpuscular HGB CONC 33.9 g/dL (32.0-36.0); Mean Corpuscular Hemoglobin 30.9 pg (27.0-31.0); Mean Corpuscular Volume 91.2 fl (78.0-98.0); Mean Platelet Volume 9.8 fL (7.4-10.4); Platelet Count 229 10x3/uL (130-400); Red Blood Cell (RBC) Count 3.17 mill/uL (4.20-5.40); White Blood Cell (WBC) Count 5.3 10x3/uL (4.8-10.8)
[2023-05-02 06:15] LABS: Anion Gap 11 mmol/L (10-20); BUN (Urea Nitrogen) 13 mg/dL (9.8-20.1); Calc. Creatinine Clearance 73 mL/min (70-130); Calcium 8.1 mg/dL (7.8-10.44); Carbon Dioxide 22 mmol/L (23-31); Chloride 105 mmol/L (98-107); Estimated GFR 68; Glucose 303 mg/dL (83-110); Potassium 2.9 mmol/L (3.5-5.1); Sodium 135 mmol/L (136-145)
[2023-05-02] MEDS: HumaLOG 300 UNITS/3 ML VIAL SC PRN ×2 (06:35→11:58)
[2023-05-02] MEDS ORDERED: Potassium Chloride 20 MEQ TAB PO SCH (08:00)
[2023-05-02 08:14] LABS: Magnesium 1.9 mg/dL (1.6-2.6)
[2023-05-02] MEDS: Carvedilol 3.125 MG TAB PO SCH (08:41)
[2023-05-02] MEDS: Amlodipine 10 MG TAB PO SCH (08:41)
[2023-05-02] MEDS: Spironolactone 25 MG TAB PO SCH (08:41)
[2023-05-02] MEDS: Flecainide 50 MG TAB PO SCH (08:42)
[2023-05-02] MEDS: Furosemide 40 MG TAB PO SCH (08:42)
[2023-05-02] MEDS: Apixaban 5 MG TAB PO SCH (08:42)
[2023-05-02] MEDS: Isosorbide Mononitrate 60 MG ER.TAB PO SCH (08:42)
[2023-05-02] MEDS: Sacubitril 24MG/Valsartan 26 MG TAB PO SCH (08:42)
[2023-05-02] MEDS: Losartan 25 MG TAB PO SCH (08:43)
[2023-05-02] MEDS: Insulin Glargine 30 UNITS/0.3 ML VIAL SC SCH (08:43)
[2023-05-02] MEDS: cefTRIAXone\\ROCEPHIN 1 GM in Sodium Chloride 0.9% 100 ML IVPB SCH (11:57)
[2023-05-02 15:05] LABS: Potassium 3.5 mmol/L (3.5-5.1)
[2023-05-02 16:25] VITALS: BP 160/78; TEMP 97.7
[2023-05-04] MEDS ORDERED: FLU VACC QS2023(65UP)/MF59C/PF 60 MCG/0.5 ML SYRINGE IM ONE (09:00)
== END 2023-05-02 14:00 | disposition home or self-care (01) | DRG 637 ==
LOC: ERS 21:31 → ERHOLD 23:47 → 2NO 23:50 → SURG A 05-01 21:24
PROVIDERS: ADMIT Student in an Organized Health Care Education/Training Program; ATTEND Family Medicine
PROC: 0T9B70Z Drainage of Bladder with Drainage Device, Via Natural or Artificial Opening (ICD-10-PCS; principal; 2023-04-30)
PROC: 4A043R1 Measurement of Venous Saturation, Peripheral, Percutaneous Approach (ICD-10-PCS; 2023-04-30)
DX: E11.65 Type 2 diabetes mellitus with hyperglycemia (principal); G93.41 Metabolic encephalopathy; I13.0 Hypertensive heart and chronic kidney disease with heart failure and stage 1 through stage 4 chronic kidney disease, or unspecified chronic kidney disease; N39.0 Urinary tract infection, site not specified; I50.32 Chronic diastolic (congestive) heart failure; Z79.899 Other long term (current) drug therapy; Z79.01 Long term (current) use of anticoagulants; Z79.4 Long term (current) use of insulin; I25.2 Old myocardial infarction; Z95.0 Presence of cardiac pacemaker; E78.5 Hyperlipidemia, unspecified; Z98.890 Other specified postprocedural states; Z86.73 Personal history of transient ischemic attack (TIA), and cerebral infarction without residual deficits; Z90.710 Acquired absence of both cervix and uterus; E11.22 Type 2 diabetes mellitus with diabetic chronic kidney disease; D63.1 Anemia in chronic kidney disease; I48.0 Paroxysmal atrial fibrillation
CPT/HCPCS: 36415; 36416; 51701; 70496; 70498; 80048; 80053; 81001; 82010; 82805; 83735; 85025; 87324; 87449; 93005; 96361; 96365; J0696; J1815; J3490; J7050; Q9967

== ENCOUNTER 2023-06-10 07:39 | Outpatient (CLI) | payer MEDICARE | END 2023-06-10 07:40 | disposition home or self-care (01) | LOC: BICMAMMO 07:39 | PROVIDERS: ATTEND Nurse Practitioner | DX: Z08 Encounter for follow-up examination after completed treatment for malignant neoplasm (principal); Z85.3 Personal history of malignant neoplasm of breast; Z98.890 Other specified postprocedural states | CPT/HCPCS: 76642; 77065; G0279 ==

== ENCOUNTER 2023-11-17 10:16 | Outpatient (CLI) | payer MEDICARE, OTHER | END 2023-11-17 10:17 | disposition home or self-care (01) | LOC: ULT 10:16 | PROVIDERS: ATTEND Nurse Practitioner | DX: R60.0 Localized edema (principal); L53.9 Erythematous condition, unspecified | CPT/HCPCS: 93923 ==

== ENCOUNTER 2023-12-15 11:56 | Inpatient (IN) | payer MEDICARE, OTHER ==
[2023-12-15 12:58] LABS: Bacteria/HPF 3+ HPF (None Seen); Bilirubin Negative (Negative); Blood, Urine 3+ (Negative); CAUTI Indications for Culture Dysuria,urgency,freq; Clarity Turbid (Clear); Glucose, Urine (Dipstick) Normal (Negative); Ketone, Urine Negative (Negative); Leukocyte 500 Leu/uL (Negative); Nitrite Negative (Negative); Protein, Urine (Dipstick) 70 mg/dL (Neg-Trace); RBC/HPF Greater than 50 HPF (0-3); Specific Gravity, Urine 1.017 (1.002-1.036); Squamous Epithelial 0-3 HPF (0-3); Urobilinogen Normal mg/dL (Less than 2); WBC/HPF 21-50 HPF (0-3)
[2023-12-15 12:59] LABS: Urine Culture Reflex Yes Yes
[2023-12-15] MEDS ORDERED: Sodium Chloride 0.9% 100 ML ONE (13:14)
[2023-12-15] MEDS ORDERED: Cefepime 2 GM VIAL ONE (13:14)
[2023-12-15 13:24] LABS: #Basophils Less than 0.03 10x3/uL (0.0-0.2); %Basophils 0.3 % (0.0-1.0); %Eosinophils 2.4 % (0.0-10.0); %Lymphocytes 18.5 % (21.0-51.0); %Monocytes 7.2 % (0.0-10.0); %Neutrophils 71.3 % (42.0-75.0); Hematocrit 31.5 % (36.0-47.0); Hemoglobin 9.9 g/dL (12.0-16.0); Mean Corpuscular HGB CONC 31.4 g/dL (32.0-36.0); Mean Corpuscular Hemoglobin 29.9 pg (27.0-31.0); Mean Corpuscular Volume 95.2 fL (78.0-98.0); Mean Platelet Volume 9.7 fL (7.4-10.4); Platelet Count 344 10x3/uL (130-400); RBC Distribution Width 14.9 % (11.5-14.5); Red Blood Cell (RBC) Count 3.31 mill/uL (4.20-5.40)
[2023-12-15 13:51] LABS: ALT (SGPT) 12 U/L (8-55); AST (SGOT) 34 U/L (5-34); Albumin 3.1 g/dL (3.4-4.8); Alkaline Phosphatase 100 U/L (40-110); Anion Gap 14 mmol/L (10-20); BUN (Urea Nitrogen) 29 mg/dL (9.8-20.1); Bilirubin, Total 0.3 mg/dL (0.2-1.2); Calc. Creatinine Clearance 0 mL/min (70-130); Carbon Dioxide 21 mmol/L (23-31); Chloride 104 mmol/L (98-107); Estimated GFR 46; Globulin 4.5 g/dL (2.4-3.5); Glucose 144 mg/dL (83-110); Potassium 4.9 mmol/L (3.5-5.1); Protein, Total 7.6 g/dL (5.8-8.1); Sodium 134 mmol/L (136-145)
[2023-12-15] MEDS ORDERED: Ondansetron PF 4 MG/2 ML Vial IVP PRN (15:26)
[2023-12-15] MEDS ORDERED: Acetaminophen 325 MG TAB PO PRN (15:26)
[2023-12-15 16:19] LABS: Bilirubin Negative (Negative); Blood, Urine 3+ (Negative); CAUTI Indications for Culture Dysuria,urgency,freq; Clarity Clear (Clear); Glucose, Urine (Dipstick) Normal (Negative); Ketone, Urine Negative (Negative); Leukocyte 250 Leu/uL (Negative); Nitrite 2+ (Negative); Protein, Urine (Dipstick) 50 mg/dL (Neg-Trace); RBC/HPF Greater than 50 HPF (0-3); Specific Gravity, Urine 1.014 (1.002-1.036); Squamous Epithelial None Seen HPF (0-3); Urobilinogen Normal mg/dL (Less than 2); WBC/HPF 21-50 HPF (0-3); pH, Urine 6.5 (5.0-9.0)
[2023-12-15 16:22] LABS: Bacteria/HPF 1+ HPF (None Seen)
[2023-12-15] MEDS: Vancomycin (BATCH) 2 GM in Premix 1 BAG IVPB SCH (16:52)
[2023-12-15] MEDS: Piperacillin/Tazobactam 3.375 GM in Sodium Chloride 0.9% 100 ML IVPB SCH ×2 (19:00→23:11)
[2023-12-15 19:01] VITALS: BMI 34.1
[2023-12-15] MEDS: Famotidine 20 MG TAB PO SCH (20:42)
[2023-12-15] MEDS ORDERED: Cefepime 2 GM in Sodium Chloride 0.9% 100 ML IVPB SCH (21:00)
[2023-12-15] MEDS ORDERED: Vancomycin 1 GM in Sodium Chloride 0.9% 250 ML 250 ML IVPB SCH (21:00)
[2023-12-16 06:45] LABS: #Basophils 0.03 10x3/uL (0.0-0.2); %Basophils 0.4 % (0.0-1.0); %Eosinophils 2.8 % (0.0-10.0); %Lymphocytes 14.5 % (21.0-51.0); %Monocytes 7.8 % (0.0-10.0); %Neutrophils 74.4 % (42.0-75.0); Hemoglobin 9.4 g/dL (12.0-16.0); Mean Corpuscular HGB CONC 30.3 g/dL (32.0-36.0); Mean Corpuscular Hemoglobin 29.5 pg (27.0-31.0); Mean Corpuscular Volume 97.2 fL (78.0-98.0); Mean Platelet Volume 9.5 fL (7.4-10.4); Platelet Count 294 10x3/uL (130-400); RBC Distribution Width 15.2 % (11.5-14.5); Red Blood Cell (RBC) Count 3.19 mill/uL (4.20-5.40)
[2023-12-16 07:01] LABS: ALT (SGPT) 7 U/L (8-55); AST (SGOT) 11 U/L (5-34); Albumin 2.7 g/dL (3.4-4.8); Alkaline Phosphatase 94 U/L (40-110); Anion Gap 15 mmol/L (10-20); BUN (Urea Nitrogen) 19 mg/dL (9.8-20.1); Bilirubin, Total 0.4 mg/dL (0.2-1.2); Calc. Creatinine Clearance 72 mL/min (70-130); Calcium 8.8 mg/dL (7.8-10.44); Carbon Dioxide 18 mmol/L (23-31); Chloride 112 mmol/L (98-107); Estimated GFR 65; Globulin 3.8 g/dL (2.4-3.5); Glucose 120 mg/dL (83-110); Potassium 3.8 mmol/L (3.5-5.1); Protein, Total 6.5 g/dL (5.8-8.1); Sodium 141 mmol/L (136-145)
[2023-12-16 07:12] LABS: Vancomycin, Random 15.8 ug/mL (See Comment)
[2023-12-16] MEDS: Flecainide 50 MG TAB PO SCH ×2 (11:23→20:44)
[2023-12-16] MEDS: Sacubitril 24MG/Valsartan 26 MG TAB PO SCH ×2 (11:23→20:44)
[2023-12-16] MEDS: Furosemide 40 MG TAB PO SCH (15:04)
[2023-12-16] MEDS: Sodium Bicarbonate Tab 325 MG TAB PO SCH (15:04)
[2023-12-16] MEDS: hydrALAZINE 25 MG TAB PO SCH (15:04)
[2023-12-16] MEDS: Vancomycin (BATCH) 1.25 GM in Premix 1 BAG IVPB SCH (15:20)
[2023-12-16] MEDS ORDERED: Loperamide HCl 2 MG CAP PO PRN (16:29)
[2023-12-16] MEDS: Carvedilol 3.125 MG TAB PO SCH (20:43)
[2023-12-16] MEDS: Insulin Glargine 30 UNITS/0.3 ML VIAL SC SCH (20:45)
[2023-12-16] MEDS ORDERED: Furosemide 20 MG TAB PO SCH (21:00)
[2023-12-17 08:32] VITALS: BP 176/77; TEMP 97.7
[2023-12-17] MEDS: Isosorbide Mononitrate 60 MG ER.TAB PO SCH (09:20)
[2023-12-17] MEDS: Folic Acid 1 MG TAB PO SCH (09:20)
== END 2023-12-17 13:47 | disposition home or self-care (01) | DRG 699 ==
LOC: ERS 11:56 → ERHOLD 15:43 → T4-A 18:45
PROVIDERS: ADMIT Family Medicine; ATTEND Hospitalist
DX: N32.89 Other specified disorders of bladder (principal); J90 Pleural effusion, not elsewhere classified; K80.20 Calculus of gallbladder without cholecystitis without obstruction; Z87.448 Personal history of other diseases of urinary system
CPT/HCPCS: 36415; 36416; 51702; 71045; 74178; 80053; 80202; 81001; 82565; 83036; 83605; 85025; 86141; 87040; 87077; 87086; 87186; 96365; 96366; 96367; J0692; J1815; J2543; J3370; Q9967

== ENCOUNTER 2024-01-26 07:05 | Outpatient (CLI) | payer MEDICARE ==
[2024-01-26] MEDS ORDERED: Iopamidol 370 76% 100 ML VIAL ONE (14:55)
== END 2024-01-26 07:06 | disposition home or self-care (01) ==
LOC: CT 07:05
PROVIDERS: ATTEND Radiology Radiation Oncology
DX: C34.11 Malignant neoplasm of upper lobe, right bronchus or lung (principal); R91.8 Other nonspecific abnormal finding of lung field
CPT/HCPCS: 36415; 71260; 82565; Q9967

== ENCOUNTER 2024-05-24 07:49 | Outpatient (CLI) | payer MEDICARE, OTHER | END 2024-05-24 07:50 | disposition home or self-care (01) | LOC: CT 07:49 | PROVIDERS: ATTEND Radiology Radiation Oncology | DX: C34.11 Malignant neoplasm of upper lobe, right bronchus or lung (principal); K80.20 Calculus of gallbladder without cholecystitis without obstruction; R91.8 Other nonspecific abnormal finding of lung field | CPT/HCPCS: 36415; 71250; 82565 ==

== ENCOUNTER 2024-11-21 08:55 | Inpatient (IN) | payer MEDICARE, OTHER ==
[2024-11-21] MEDS ORDERED: Cefepime 2 GM VIAL ONE (09:44)
[2024-11-21 10:08] LABS: #Basophils Less than 0.03 10x3/uL (0.0-0.2); #Eosinophils Less than 0.03 10x3/uL (0.0-0.7); #Monocytes 0.98 10x3/uL (0.11-0.59); #Neutrophils 8.01 10x3/uL (1.40-6.50); %Basophils 0.2 % (0.0-1.0); %Eosinophils 0.2 % (0.0-10.0); %Lymphocytes 10.9 % (21.0-51.0); %Monocytes 9.6 % (0.0-10.0); %Neutrophils 78.6 % (42.0-75.0); Hematocrit 23.1 % (36.0-47.0); Hemoglobin 7.1 g/dL (12.0-16.0); Mean Corpuscular Hemoglobin 27.0 pg (27.0-31.0); Mean Corpuscular Volume 87.8 fL (78.0-98.0); Platelet Count 277 10x3/uL (130-400); Red Blood Cell (RBC) Count 2.63 mill/uL (4.20-5.40); White Blood Cell (WBC) Count 10.19 10x3/uL (4.8-10.8)
[2024-11-21 10:26] LABS: ALT (SGPT) 10 U/L (Less than 34); AST (SGOT) 16 U/L (11-34); Albumin 3.1 g/dL (3.1-4.5); Alkaline Phosphatase 123 U/L (40-110); Anion Gap 14 mmol/L (10-20); BUN (Urea Nitrogen) 24 mg/dL (9.8-20.1); Bilirubin, Total 0.7 mg/dL (0.3-1.2); Calc. Creatinine Clearance 0 mL/min (70-130); Calcium 9.1 mg/dL (7.8-10.44); Carbon Dioxide 24 mmol/L (23-31); Chloride 103 mmol/L (98-107); Globulin 3.7 g/dL (2.4-3.5); Glucose 220 mg/dL (83-110); Magnesium 1.6 mg/dL (1.6-2.6); Potassium 3.8 mmol/L (3.5-5.1); Sodium 137 mmol/L (136-145)
[2024-11-21 10:31] LABS: Troponin I 0.019 ng/mL (< 0.028)
[2024-11-21 10:34] LABS: Actual Bicarbonate (HCO3v) 26.4 mEq/L (22-28); Base Excess 0.3 mEq/L (-2.0 to +3.0); Calcium, Ionized (venous) 1.20 mmol/L (1.16-1.32); Chloride (VBG) 99 mmol/L (98-106); Hematocrit-VBG 42 % (36.0-47.0); Hemoglobin (Hb) 14.2 g/dL (11.7-16.1); Potassium (VBG) 3.82 mmol/L (3.70-5.30); Sodium 138 mmol/L (133-146)
[2024-11-21 12:07] LABS: Bacteria/HPF 4+ HPF (None Seen); CAUTI Indications for Culture Pelvic or flank pain; Glucose, Urine (Dipstick) Normal (Negative); Leukocyte 500 Leu/uL (Negative); Protein, Urine (Dipstick) 50 mg/dL (Neg-Trace); RBC/HPF 0-3 HPF (0-3); Specific Gravity, Urine 1.010 (1.002-1.036); WBC/HPF Greater than 50 HPF (0-3)
[2024-11-21 12:08] LABS: Urine Culture Reflex Yes Yes
[2024-11-21 13:04] LABS: Troponin I 0.016 ng/mL (< 0.028)
[2024-11-21] MEDS ORDERED: Senokot S 8.6-50 MG TAB PO PRN (13:13)
[2024-11-21] MEDS ORDERED: Guaifenesin DM 100-10/5 ML UDCUP PO PRN (13:13)
[2024-11-21 13:57] LABS: ALT (SGPT) 9 U/L (Less than 34); AST (SGOT) 14 U/L (11-34); Albumin 2.9 g/dL (3.1-4.5); Alkaline Phosphatase 114 U/L (40-110); Anion Gap 15 mmol/L (10-20); BUN (Urea Nitrogen) 23 mg/dL (9.8-20.1); Bilirubin, Total 0.5 mg/dL (0.3-1.2); Calc. Creatinine Clearance 0 mL/min (70-130); Calcium 8.4 mg/dL (7.8-10.44); Carbon Dioxide 20 mmol/L (23-31); Chloride 106 mmol/L (98-107); Globulin 3.4 g/dL (2.4-3.5); Glucose 208 mg/dL (83-110); Potassium 3.7 mmol/L (3.5-5.1); Sodium 137 mmol/L (136-145)
[2024-11-21] MEDS: VANCOMYCIN 1.75 GM/350 ML Premix BAG IVPB SCH (15:19)
[2024-11-21 15:29] LABS: #Basophils Less than 0.03 10x3/uL (0.0-0.2); #Eosinophils Less than 0.03 10x3/uL (0.0-0.7); #Monocytes 0.56 10x3/uL (0.11-0.59); #Neutrophils 4.18 10x3/uL (1.40-6.50); %Basophils 0.2 % (0.0-1.0); %Eosinophils 0.2 % (0.0-10.0); %Lymphocytes 13.2 % (21.0-51.0); %Monocytes 10.2 % (0.0-10.0); %Neutrophils 75.8 % (42.0-75.0); Hematocrit 20.2 % (36.0-47.0); Hemoglobin 6.1 g/dL (12.0-16.0); Mean Corpuscular Hemoglobin 27.4 pg (27.0-31.0); Mean Corpuscular Volume 90.6 fL (78.0-98.0); Platelet Count 130 10x3/uL (130-400); Red Blood Cell (RBC) Count 2.23 mill/uL (4.20-5.40); White Blood Cell (WBC) Count 5.51 10x3/uL (4.8-10.8)
[2024-11-21 15:53] LABS: Troponin I 0.012 ng/mL (< 0.028)
[2024-11-21] MEDS: Acetaminophen 325 MG TAB PO PRN (19:48)
[2024-11-21] MEDS: Carvedilol 3.125 MG TAB PO SCH (19:49)
[2024-11-21] MEDS: Famotidine 20 MG TAB PO SCH (19:49)
[2024-11-21] MEDS: Acetaminophen 325 MG TAB PO SCH (21:02)
[2024-11-22] MEDS ORDERED: Dextrose 50% Abboject 50 ML SYRINGE SLOW IVP PRN (02:38)
[2024-11-22] MEDS ORDERED: Glucagon 1 MG/ML KIT IM PRN (02:38)
[2024-11-22] MEDS: Melatonin 3 MG TAB PO PRN (03:00)
[2024-11-22 05:34] LABS: Anion Gap 16 mmol/L (10-20); BUN (Urea Nitrogen) 25 mg/dL (9.8-20.1); Calc. Creatinine Clearance 49 mL/min (70-130); Calcium 8.9 mg/dL (7.8-10.44); Carbon Dioxide 19 mmol/L (23-31); Chloride 105 mmol/L (98-107); Glucose 257 mg/dL (83-110); Potassium 3.8 mmol/L (3.5-5.1); Sodium 136 mmol/L (136-145)
[2024-11-22] MEDS: Insulin Glargine 30 UNITS/0.3 ML VIAL SC SCH (08:48)
[2024-11-22 10:49] LABS: #Basophils 0.03 10x3/uL (0.0-0.2); #Eosinophils 0.03 10x3/uL (0.0-0.7); #Monocytes 0.99 10x3/uL (0.11-0.59); #Neutrophils 7.84 10x3/uL (1.40-6.50); %Basophils 0.3 % (0.0-1.0); %Eosinophils 0.3 % (0.0-10.0); %Lymphocytes 11.4 % (21.0-51.0); %Monocytes 9.8 % (0.0-10.0); %Neutrophils 77.9 % (42.0-75.0); Hematocrit 36.1 % (36.0-47.0); Hemoglobin 11.4 g/dL (12.0-16.0); Mean Corpuscular Hemoglobin 27.3 pg (27.0-31.0); Mean Corpuscular Volume 86.4 fL (78.0-98.0); Platelet Count 231 10x3/uL (130-400); Red Blood Cell (RBC) Count 4.18 mill/uL (4.20-5.40); White Blood Cell (WBC) Count 10.07 10x3/uL (4.8-10.8)
[2024-11-22] MEDS: dilTIAZem 25 MG/5 ML VIAL SLOW IVP SCH (16:56)
[2024-11-22] MEDS: Diltiazem HCl/D5W 125 MG in Premix 1 BAG IVPB SCH (16:56)
[2024-11-22] MEDS: Famotidine 20 MG TAB PO SCH (20:48)
[2024-11-23 04:51] LABS: #Basophils 0.03 10x3/uL (0.0-0.2); #Eosinophils 0.10 10x3/uL (0.0-0.7); #Monocytes 0.93 10x3/uL (0.11-0.59); #Neutrophils 6.19 10x3/uL (1.40-6.50); %Basophils 0.4 % (0.0-1.0); %Eosinophils 1.2 % (0.0-10.0); %Lymphocytes 14.0 % (21.0-51.0); %Monocytes 11.0 % (0.0-10.0); %Neutrophils 73.0 % (42.0-75.0); Hematocrit 34.5 % (36.0-47.0); Hemoglobin 10.7 g/dL (12.0-16.0); Mean Corpuscular Hemoglobin 26.6 pg (27.0-31.0); Mean Corpuscular Volume 85.8 fL (78.0-98.0); Platelet Count 225 10x3/uL (130-400); Red Blood Cell (RBC) Count 4.02 mill/uL (4.20-5.40); White Blood Cell (WBC) Count 8.47 10x3/uL (4.8-10.8)
[2024-11-23 05:16] LABS: Anion Gap 15 mmol/L (10-20); BUN (Urea Nitrogen) 30 mg/dL (9.8-20.1); Calc. Creatinine Clearance 47 mL/min (70-130); Calcium 9.1 mg/dL (7.8-10.44); Carbon Dioxide 19 mmol/L (23-31); Chloride 105 mmol/L (98-107); Glucose 195 mg/dL (83-110); Potassium 3.6 mmol/L (3.5-5.1); Sodium 135 mmol/L (136-145)
[2024-11-24 13:01] LABS: #Basophils 0.03 10x3/uL (0.0-0.2); #Eosinophils 0.09 10x3/uL (0.0-0.7); #Monocytes 0.79 10x3/uL (0.11-0.59); #Neutrophils 6.62 10x3/uL (1.40-6.50); %Basophils 0.3 % (0.0-1.0); %Eosinophils 1.0 % (0.0-10.0); %Lymphocytes 12.0 % (21.0-51.0); %Monocytes 9.2 % (0.0-10.0); %Neutrophils 77.2 % (42.0-75.0); Hematocrit 35.3 % (36.0-47.0); Hemoglobin 11.1 g/dL (12.0-16.0); Mean Corpuscular Hemoglobin 27.2 pg (27.0-31.0); Mean Corpuscular Volume 86.5 fL (78.0-98.0); Platelet Count 238 10x3/uL (130-400); Red Blood Cell (RBC) Count 4.08 mill/uL (4.20-5.40); White Blood Cell (WBC) Count 8.59 10x3/uL (4.8-10.8)
[2024-11-24] MEDS: Furosemide 40 MG (4 mL) VIAL SLOW IVP SCH (16:16)
[2024-11-24] MEDS: Furosemide 40 MG (4 mL) VIAL ONE (16:43)
[2024-11-24 18:44] LABS: Actual Bicarbonate (HCO3a) 21.4 mEq/L (22-28); Base Excess (BEa) -1.8 mEq/L (-2.0 to +3.0); CO2 Tension 31.6 mmHg (35.0-45.0); Calcium, Ionized (arterial) 1.27 mmol/L (1.12-1.30); Hematocrit-ABG 36 % (36.0-47.0); Hemoglobin (Hb) 12.2 g/dL (12.0-16.0); O2 Tension (PaO2), arterial 64.6 mmHg (> 60.0); Potassium - ABG Lab 3.90 mmol/L (3.70-5.30); pH, Arterial 7.449 (7.35-7.45)
[2024-11-24 18:45] LABS: Puncture Site rrad
[2024-11-24 18:46] LABS: ALV-art Gradient 95.540 mmHg (0-20)
[2024-11-24] MEDS: Apixaban 2.5 MG TAB PO SCH (21:36)
[2024-11-24] MEDS: Albuterol 200 PUFF (6.7GM INHALER) INH PRN (21:49)
[2024-11-25] MEDS: QUEtiapine 25 MG TAB PO SCH (01:52)
[2024-11-25 04:25] LABS: Actual Bicarbonate (HCO3v) 19.2 mEq/L (22-28); Base Excess -5.3 mEq/L (-2.0 to +3.0); Calcium, Ionized (venous) 1.22 mmol/L (1.16-1.32); Chloride (VBG) 105 mmol/L (98-106); Hematocrit-VBG 35 % (36.0-47.0); Hemoglobin (Hb) 12.0 g/dL (11.7-16.1); Potassium (VBG) 3.51 mmol/L (3.70-5.30); Sodium 138 mmol/L (133-146)
[2024-11-25 04:52] LABS: ALT (SGPT) 9 U/L (Less than 34); AST (SGOT) 16 U/L (11-34); Albumin 2.6 g/dL (3.1-4.5); Alkaline Phosphatase 128 U/L (40-110); Anion Gap 12 mmol/L (10-20); BUN (Urea Nitrogen) 33 mg/dL (9.8-20.1); Bilirubin, Total 0.4 mg/dL (0.3-1.2); Calc. Creatinine Clearance 56 mL/min (70-130); Calcium 9.3 mg/dL (7.8-10.44); Carbon Dioxide 20 mmol/L (23-31); Chloride 108 mmol/L (98-107); Globulin 3.8 g/dL (2.4-3.5); Glucose 118 mg/dL (83-110); Potassium 3.4 mmol/L (3.5-5.1); Sodium 137 mmol/L (136-145)
[2024-11-25] MEDS: Furosemide 40 MG (4 mL) VIAL SLOW IVP SCH ×3 (05:03→16:22)
[2024-11-25 05:56] LABS: #Basophils 0.03 10x3/uL (0.0-0.2); #Eosinophils 0.05 10x3/uL (0.0-0.7); #Monocytes 0.80 10x3/uL (0.11-0.59); #Neutrophils 6.37 10x3/uL (1.40-6.50); %Basophils 0.4 % (0.0-1.0); %Eosinophils 0.6 % (0.0-10.0); %Lymphocytes 11.5 % (21.0-51.0); %Monocytes 9.7 % (0.0-10.0); %Neutrophils 77.3 % (42.0-75.0); Hematocrit 32.6 % (36.0-47.0); Hemoglobin 10.2 g/dL (12.0-16.0); Mean Corpuscular Hemoglobin 27.1 pg (27.0-31.0); Mean Corpuscular Volume 86.5 fL (78.0-98.0); Platelet Count 229 10x3/uL (130-400); Red Blood Cell (RBC) Count 3.77 mill/uL (4.20-5.40); White Blood Cell (WBC) Count 8.24 10x3/uL (4.8-10.8)
[2024-11-25] MEDS ORDERED: Furosemide 40 MG (4 mL) VIAL SLOW IVP SCH (09:00)
[2024-11-25] MEDS: Ferrous Sulfate 325 MG TAB PO SCH (11:41)
[2024-11-25] MEDS: Folic Acid 1 MG TAB PO SCH (11:43)
[2024-11-25] MEDS: OLANZapine 2.5 MG TAB PO SCH (17:17)
[2024-11-25] MEDS: Famotidine/PF 20 mg/2ml Vial SLOW IVP SCH (21:04)
[2024-11-25] MEDS: Potassium Chloride 20 MEQ in Premix 1 BAG IVPB SCH (22:12)
[2024-11-25] MEDS: Magnesium 2 GM/50 ML(in water) 2 GM in Premix 1 BAG IVPB SCH (22:12)
[2024-11-26 06:02] VITALS: BMI 32.0
[2024-11-26] MEDS ORDERED: Furosemide 40 MG (4 mL) VIAL SLOW IVP SCH (09:00)
[2024-11-26] MEDS: Apixaban 5 MG TAB PO SCH (21:32)
[2024-11-26 21:54] VITALS: BMI 32.0
[2024-11-27 04:44] LABS: #Basophils Less than 0.03 10x3/uL (0.0-0.2); #Eosinophils 0.11 10x3/uL (0.0-0.7); #Monocytes 0.64 10x3/uL (0.11-0.59); #Neutrophils 4.64 10x3/uL (1.40-6.50); %Basophils 0.3 % (0.0-1.0); %Eosinophils 1.6 % (0.0-10.0); %Lymphocytes 20.1 % (21.0-51.0); %Monocytes 9.4 % (0.0-10.0); %Neutrophils 68.2 % (42.0-75.0); Hematocrit 30.5 % (36.0-47.0); Hemoglobin 9.4 g/dL (12.0-16.0); Mean Corpuscular Hemoglobin 26.8 pg (27.0-31.0); Mean Corpuscular Volume 86.9 fL (78.0-98.0); Platelet Count 245 10x3/uL (130-400); Red Blood Cell (RBC) Count 3.51 mill/uL (4.20-5.40); White Blood Cell (WBC) Count 6.81 10x3/uL (4.8-10.8)
[2024-11-27 04:56] LABS: Anion Gap 13 mmol/L (10-20); BUN (Urea Nitrogen) 33 mg/dL (9.8-20.1); Calc. Creatinine Clearance 44 mL/min (70-130); Calcium 8.7 mg/dL (7.8-10.44); Carbon Dioxide 24 mmol/L (23-31); Chloride 104 mmol/L (98-107); Glucose 251 mg/dL (83-110); Potassium 3.5 mmol/L (3.5-5.1); Sodium 137 mmol/L (136-145)
[2024-11-27 12:13] LABS: Potassium 4.3 mmol/L (3.5-5.1)
[2024-11-27] MEDS ORDERED: NEOMYCIN-POLYMYXIN-HC EAR SUSP 200 DROP/10 ML BOT R EAR SCH (18:00)
[2024-11-27] MEDS: Famotidine/PF 20 mg/2ml Vial SLOW IVP SCH (20:34)
[2024-11-28] MEDS: QUEtiapine 25 MG TAB PO SCH (02:32)
[2024-11-28] MEDS: Furosemide 40 MG (4 mL) VIAL SLOW IVP SCH ×2 (02:32→06:01)
[2024-11-28 04:53] LABS: #Basophils 0.04 10x3/uL (0.0-0.2); #Eosinophils 0.09 10x3/uL (0.0-0.7); #Monocytes 0.68 10x3/uL (0.11-0.59); #Neutrophils 6.61 10x3/uL (1.40-6.50); %Basophils 0.4 % (0.0-1.0); %Eosinophils 1.0 % (0.0-10.0); %Lymphocytes 18.5 % (21.0-51.0); %Monocytes 7.4 % (0.0-10.0); %Neutrophils 72.2 % (42.0-75.0); Hematocrit 34.2 % (36.0-47.0); Hemoglobin 10.7 g/dL (12.0-16.0); Mean Corpuscular Hemoglobin 26.5 pg (27.0-31.0); Mean Corpuscular Volume 84.7 fL (78.0-98.0); Platelet Count 297 10x3/uL (130-400); Red Blood Cell (RBC) Count 4.04 mill/uL (4.20-5.40); White Blood Cell (WBC) Count 9.17 10x3/uL (4.8-10.8)
[2024-11-28 05:09] LABS: Anion Gap 14 mmol/L (10-20); BUN (Urea Nitrogen) 31 mg/dL (9.8-20.1); Calc. Creatinine Clearance 44 mL/min (70-130); Calcium 10.0 mg/dL (7.8-10.44); Carbon Dioxide 23 mmol/L (23-31); Chloride 105 mmol/L (98-107); Glucose 99 mg/dL (83-110); Magnesium 2.1 mg/dL (1.6-2.6); Potassium 4.1 mmol/L (3.5-5.1); Sodium 138 mmol/L (136-145)
[2024-11-28] MEDS: NS 0.9% w/ 20 MEQ KCL 1,000 ML IV SCH (15:24)
[2024-11-29] MEDS: Furosemide 40 MG (4 mL) VIAL SLOW IVP SCH (16:39)
[2024-11-30] MEDS: Ergocalciferol 1.25 MG(50,000 UNITS) CAP PO SCH (09:48)
[2024-11-30 15:02] VITALS: BP 141/75; TEMP 98.1
[2024-11-30] MEDS ORDERED: Carvedilol 6.25 MG TAB PO SCH (21:00)
== END 2024-11-30 18:15 | disposition hospice, home (50) | DRG 871 ==
LOC: ERS 08:55 → 2NO 13:42 → CCU 11-25 08:32 → 2NO 11-27 17:34
PROVIDERS: ADMIT Hospitalist; ATTEND Family Medicine
PROC: 3E03329 Introduction of Other Anti-infective into Peripheral Vein, Percutaneous Approach (ICD-10-PCS; principal; 2024-11-21)
PROC: 4A033R1 Measurement of Arterial Saturation, Peripheral, Percutaneous Approach (ICD-10-PCS; 2024-11-24)
PROC: 5A09357 Assistance with Respiratory Ventilation, Less than 24 Consecutive Hours, Continuous Positive Airway Pressure (ICD-10-PCS; 2024-11-25)
PROC: 30233N1 Transfusion of Nonautologous Red Blood Cells into Peripheral Vein, Percutaneous Approach (ICD-10-PCS; 2024-11-25)
PROC: 02H633Z Insertion of Infusion Device into Right Atrium, Percutaneous Approach (ICD-10-PCS; 2024-11-25)
PROC: 0T9B70Z Drainage of Bladder with Drainage Device, Via Natural or Artificial Opening (ICD-10-PCS; 2024-11-27)
DX: A41.9 Sepsis, unspecified organism (principal); I50.33 Acute on chronic diastolic (congestive) heart failure; J96.01 Acute respiratory failure with hypoxia; N39.0 Urinary tract infection, site not specified; I13.0 Hypertensive heart and chronic kidney disease with heart failure and stage 1 through stage 4 chronic kidney disease, or unspecified chronic kidney disease; D62 Acute posthemorrhagic anemia; F05 Delirium due to known physiological condition; I48.19 Other persistent atrial fibrillation; C34.90 Malignant neoplasm of unspecified part of unspecified bronchus or lung; C78.7 Secondary malignant neoplasm of liver and intrahepatic bile duct; Z51.5 Encounter for palliative care; Z66 Do not resuscitate; E78.5 Hyperlipidemia, unspecified; F41.9 Anxiety disorder, unspecified; E11.22 Type 2 diabetes mellitus with diabetic chronic kidney disease; N18.31 Chronic kidney disease, stage 3a; D63.1 Anemia in chronic kidney disease; I45.10 Unspecified right bundle-branch block; Z85.3 Personal history of malignant neoplasm of breast; I25.2 Old myocardial infarction; Z95.0 Presence of cardiac pacemaker; Z90.13 Acquired absence of bilateral breasts and nipples; Z85.038 Personal history of other malignant neoplasm of large intestine; Z86.73 Personal history of transient ischemic attack (TIA), and cerebral infarction without residual deficits; Z98.890 Other specified postprocedural states; Z90.710 Acquired absence of both cervix and uterus; Z79.899 Other long term (current) drug therapy; Z79.01 Long term (current) use of anticoagulants; Z79.51 Long term (current) use of inhaled steroids; Z79.4 Long term (current) use of insulin; Z79.891 Long term (current) use of opiate analgesic; Z92.21 Personal history of antineoplastic chemotherapy
CPT/HCPCS: 36415; 36416; 36430; 70450; 71045; 80048; 80053; 81001; 82274; 82805; 83605; 83735; 83880; 84484; 85025; 86850; 86900; 86901; 87040; 87086; 87426; 93005; 93306; 94640; 94660; 94760; 96374; 96375; J0692; J1308; J1642; J1815; J1940; J2060; J3375; J3475; J3480; J7620; P9016